=== PATIENT | female | born 1940 | race Caucasian/White ===

== ENCOUNTER 2018-12-12 10:15 | Outpatient (CLI) | payer MEDICARE, OTHER, SELFPAY ==
[2018-12-12 11:37] LABS: Vitamin D 25 Hydroxy 52.7 ng/mL
== END 2018-12-12 10:16 | disposition home or self-care (01) ==
DX: E03.9 Hypothyroidism, unspecified (principal); G63 Polyneuropathy in diseases classified elsewhere; E55.9 Vitamin D deficiency, unspecified
CPT/HCPCS: 36415; 82306; 82607; 84443

== ENCOUNTER 2019-10-15 16:19 | Outpatient (CLI) | payer MEDICARE, OTHER, SELFPAY ==
--- NOTE | ~2019-10-15 | MR_ITS ---
EXAMINATION: MR cervical spine wo con DATE: 10/15/2019 17:23 INDICATION: Cervical radiculopathy. TECHNIQUE: Magnetic resonance imaging (MRI) of the cervical spine was performed without intravenous c ontrast. Sequences included sagittal T2-weighted FSE, sagittal STIR FSE, sagittal T1-weighted FSE, ax ial MERGE, and axial T2-weighted FSE. COMPARISON: Cervical spine MRI 03/14/2018 FINDINGS: There is 2 mm anterolisthesis of C3 on C4 and C4 on C5. There are changes of anterior fusio n procedure at C5-C6 with healed interbody bone graft and anterior plate and screws. There is mildly decreased disc height at C3-C4, C4-C5, C6-C7, and C7-T1. There is myelomalacia in the spinal cord at C5-C6, right worse than left. The following disc levels are specifically discussed: C2-C3: The disc does not extend beyond the endplate margin. There is no uncovertebral joint osteoarth ritis. There is severe right and mild left facet joint osteoarthritis. There is mild right neural for aminal stenosis. There is no central canal stenosis. C3-C4: The disc does not extend beyond the endplate margin. There is mild bilateral uncovertebral randal nt osteoarthritis. There is severe bilateral facet joint osteoarthritis. There is mild bilateral neur al foraminal stenosis. There is no central canal stenosis. C4-C5: The disc is bulging. There is moderate bilateral uncovertebral joint osteoarthritis. There is severe bilateral facet joint osteoarthritis. There is moderate bilateral neural foraminal stenosis. T here is mild central canal stenosis with ventral indentation of the spinal cord. C5-C6: There is mild bilateral uncovertebral joint hypertrophy. There is mild bilateral facet joint o steoarthritis. There is mild bilateral neural foraminal stenosis. There is no central canal stenosis. C6-C7: The disc is bulging. There is moderate right and severe left uncovertebral joint osteoarthriti s. There is severe right and moderate left facet joint osteoarthritis. There is mild bilateral neural foraminal stenosis. There is mild central canal stenosis. C7-T1: The disc is bulging. There is mild bilateral uncovertebral joint osteoarthritis. There is mode rate right and severe left facet joint osteoarthritis. There is mild bilateral neural foraminal steno sis. There is no central canal stenosis. IMPRESSION: 1. Moderate cervical spondylosis, stable from 03/14/2018. 2. Anterior fusion procedure at C5-C6. 3. Stable myelomalacia at C5-C6. Reviewed, dictated and finalized at location A.
== END 2019-10-15 16:20 | disposition home or self-care (01) ==
PROVIDERS: PCP Internal Medicine; Visit Provider Nurse Practitioner Adult Health
DX: G95.89 Other specified diseases of spinal cord (principal); M47.892 Other spondylosis, cervical region; M54.12 Radiculopathy, cervical region; Z98.1 Arthrodesis status
CPT/HCPCS: 72141

== ENCOUNTER 2020-06-22 08:59 | Outpatient (CLI) | payer MEDICARE, OTHER, SELFPAY ==
--- NOTE | ~2020-06-22 | DEXA_ITS ---
Bone Density Report Name: Nadine Burden Age: 79 Sex: Female Ethnicity: White Date of : 1940 Indication: postmenopausal; height loss; cancer; asthma or emphysema; hysterectomy; Referring Provider: LAZARA RODOÑEZ Study: Bone densitometry was performed. Exam Date: June 22, 2020 Accession number: [id number] Bone Density: Region BMD T-score Z-score Classification AP Spine (L2, L3) 1.136 0.7 3.5 Normal Femoral Neck (Left) 0.716 -1.2 1.1 Osteopenia Total Hip (Left) 0.843 -0.8 1.3 Normal Total Hip Bilateral Avg 0.851 -0.8 1.4 Normal Femoral Neck (Right) 0.710 -1.3 1.1 Osteopenia Total Hip (Right) 0.858 -0.7 1.4 Normal World Health Organization criteria for BMD impression classify patients as: Normal (T-score at or above -1.0), Osteopenia (T-score between -1.0 and -2.5), or Osteoporosis (T-score at or below -2.5). 10-year Fracture Risk(1): Major Osteoporotic Fracture 12% Hip Fracture 2.6% Reported Risk Factors: [place] (), Neck BMD=0.710, BMI=29.5 (1) FRAX(R) Version 3.08. Fracture probability calculated for an untreated patient. Fracture probability may be lower if the patient has received treatment. Previous Exams: Region Exam Age BMD T-score BMD Change BMD Change Date g/cm2 vs Baseline vs Previous AP Spine(L2, L3) 06/22/2020 79 1.136 0.7 0.120(11.8%)# -0.012(-1.0%) 04/10/2018 77 1.148 0.8 0.132(12.9%)# -0.030(-2.6%)* 04/08/2016 75 1.178 1.1 0.162(15.9%)# -0.071(-5.7%)# 06/03/2012 71 1.249 1.7 0.233(22.9%)# 0.061(5.1%)# 03/08/2009 68 1.188 1.2 0.172(16.9%)* 0.172(16.9%)* 09/09/2005 65 1.016 -0.4 Total Hip(Left) 06/22/2020 79 0.843 -0.8 -0.174(-17.1%) -0.016(-1.9%) 04/10/2018 77 0.859 -0.7 -0.158(-15.5%) -0.045(-4.9%)* 04/08/2016 75 0.904 -0.3 -0.113(-11.1%) -0.092(-9.2%)# 06/03/2012 71 0.995 0.4 -0.021(-2.1%)# -0.073(-6.8%)# 03/08/2009 68 1.068 1.0 0.051(5.0%)* 0.051(5.0%)* 09/09/2005 65 1.017 0.6 Total Hip(Right) 06/22/2020 79 0.858 -0.7 -0.185(-17.7%) -0.024(-2.8%) 04/10/2018 77 0.883 -0.5 -0.161(-15.4%) -0.089(-9.1%)* 04/08/2016 75 0.971 0.2 -0.072(-6.9%)# -0.050(-4.9%)# 06/03/2012 71 1.021 0.6 -0.022(-2.2%)# -0.033(-3.2%)# 03/08/2009 68 1.054 0.9 0.011(1.0%) 0.011(1.0%) 09/09/2005 65 1.044 0.8 *Denotes significance at 95% confidence level, LSC for AP Spine = 0.022 g/cm2, LSC for Total Hip = 0.027 g/cm2 Clinical Information Provided by Patient:
--- NOTE | ~2020-06-22 | MM_ITS ---
EXAMINATION: MM screening [facility] BI w chirag HISTORY: Screening mammogram, family history of breast cancer in her sister. TECHNIQUE: Craniocaudal and mediolateral oblique 3-D tomosynthesis images were obtained and synthetic 2-D images were generated. CAD analysis was submitted and interpreted. COMPARISON: 04/08/2016, 01/23/2015, 11/02/2013, 10/26/2013 BREAST PARENCHYMAL COMPOSITION: There are scattered areas of fibroglandular density. FINDINGS: There is no evidence of suspicious mass, calcification, or architectural distortion to sugg est malignancy in either breast. There has been no suspicious interval change. IMPRESSION: 1. No mammographic evidence of malignancy. 2. Recommend routine screening mammography in one year. BI-RADS Category 1: Negative Reviewed, dictated and finalized at location A.
== END 2020-06-22 09:00 | disposition home or self-care (01) ==
LOC: ANHIMG 09:10
PROVIDERS: PCP Internal Medicine; Visit Provider Obstetrics & Gynecology Gynecology
DX: Z12.31 Encounter for screening mammogram for malignant neoplasm of breast (principal); Z78.0 Asymptomatic menopausal state; M85.852 Other specified disorders of bone density and structure, left thigh; M85.851 Other specified disorders of bone density and structure, right thigh
CPT/HCPCS: 77063; 77067; 77080

== ENCOUNTER 2020-10-25 07:06 | Outpatient (CLI) | payer MEDICARE, OTHER, SELFPAY ==
--- NOTE | ~2020-10-25 | XR_ITS ---
EXAMINATION: XR chest 2V 10/25/2020 08:26 INDICATION: Dyspnea PROCEDURE: PA and lateral views of the chest COMPARISON: Comparison to multiple prior studies sequentially, with oldest reviewed study dated 10/2015. FINDINGS: The lungs are clear. The cardiomediastinal silhouette is within normal limits. There are no pleural effusions. There is no pneumothorax suspected. There are scattered calcified granulomas. There is atherosclerosis of the aorta. There are cholecystectomy clips. IMPRESSION: 1: NO ACUTE CARDIOPULMONARY DISEASE. Reviewed, dictated and finalized at location A.
--- NOTE | ~2020-10-25 | XR_ITS ---
EXAMINATION: XR hip RT 2V w AP pelvis INDICATION: Right hip pain TECHNIQUE: AP view the pelvis and two views of the right hip are obtained. COMPARISON: 03/14/2018 FINDINGS: Bone alignment is normal. There is mild osteoarthritis of the hips. No fracture is identifi ed. There are phleboliths of the pelvis. IMPRESSION: 1. Mild osteoarthritis of the hips. Reviewed, dictated and finalized at location A.
--- NOTE | ~2020-10-25 | XR_ITS ---
EXAMINATION:XR cervical spine min 6V DATE: 10/25/2020 08:27 INDICATION: Neck pain TECHNIQUE: AP, lateral, bilateral oblique, lateral swimmers and odontoid views of the cervical spine are provided. COMPARISON: MRI, 10/15/2019 FINDINGS: There are 2 mm of unchanged anterolisthesis of C4 on C5. The odontoid is intact. No fractur e is identified. There are changes of anterior fusion procedure at C5-C6 with interbody bone graft an d anterior plate and screws. There is severe loss of intervertebral disc space height at C6-7. The ve rtebral body heights are maintained. There is severe multilevel facet and uncovertebral joint osteoar thritis. IMPRESSION: 1. Moderate cervical spondylosis without acute findings or significant interval change. Reviewed, dictated and finalized at location A.
[2020-10-25 07:46] LABS: Basophils Percent Auto 0.4 % (0.2-1.2); Eosinophils Absolute Auto 0.1 K/mm3 (0-0.3); Eosinophils Percent Auto 1.2 % (0-4.4); Hematocrit 43.3 % (37.0-47.0); Hemoglobin 13.7 g/dL (12.0-15.0); Immature Granulocyte Absolute 0.03 K/mm3 (0.00-0.031); Immature Granulocyte Percent A 0.3 % (0-0.5); Lymphocytes Absolute Auto 1.09 K/mm3 (0.9-3.2); Mean Corpuscular HGB Conc 31.6 g/dl (32-36); Mean Corpuscular Hemoglobin 30.5 pg (26-34); Mean Corpuscular Volume 96.4 fl (80-100); Mean Platelet Volume 12.2 fl (7.4-10.4); Monocytes Absolute Auto 0.9 K/mm3 (0.1-0.6); Neutrophils Absolute Auto 6.9 K/mm3 (1.3-6.7); Neutrophils Percent Auto 76.1 % (45.5-73.1); Platelet Count Result 150 k/mm3 (150-375); Red Blood Count 4.49 M/mm3 (4.2-5.4); Red Cell Distribution Width 14.4 % (11.5-14.5); White Blood Count 9.1 K/mm3 (4.5-10.0)
[2020-10-25 08:03] LABS: Anion Gap 8 mmol/L (8-16); Blood Urea Nitrogen 29 mg/dL (7-17); Calcium 9.3 mg/dL (8.4-10.2); Carbon Dioxide 26 mmol/L (22-30); Chloride 110 mmol/L (98-107); Estimated Glomerular Filt Rate 53; Glucose 91 mg/dL (65-110); Potassium 4.1 mmol/L (3.4-5.0); Sodium 144 mmol/L (137-145)
[2020-10-25 08:20] LABS: Add Urine Microscopic? YES; Appearance Urine Clear (Clear); Bilirubin Urine Negative (Negative); Blood Urine Negative (Negative); Color Urine Yellow (Yellow); Glucose Urine UA Negative (Negative); Ketones Urine Negative (Negative); Leukocyte Esterase Ur Negative LEU/UL (Negative); Mucus Urine Rare /lpf; Nitrate Urine Negative (Negative); Protein Urine Negative (Negative); Specific Grav Ur 1.024 (1.001-1.035); Squamous Epithelial Cell Urine Occasional /hpf (Few); Urobilinogen Urine Negative mg/dL (<2.0); WBC Urine 0-3 /hpf
[2020-10-25 08:52] LABS: Hemoglobin A1C 5.6 % (<5.7)
[2020-10-25 08:59] LABS: Vitamin D 25 Hydroxy 39.7 ng/mL
[2020-10-25 17:20] LABS: Folic Acid 17.6 ng/mL (2.76->20)
[2020-10-28 06:32] LABS: C-Peptide 2.61 ng/mL (0.80-3.85)
[2020-10-31 04:56] LABS: Insulin Level Total 8.4 uIU/mL (<=19.6)
== END 2020-10-25 07:07 | disposition home or self-care (01) ==
PROVIDERS: PCP Internal Medicine; Visit Provider Internal Medicine
DX: E88.81 Metabolic syndrome and other insulin resistance (principal); Z79.899 Other long term (current) drug therapy; I10 Essential (primary) hypertension; E03.9 Hypothyroidism, unspecified; E53.8 Deficiency of other specified B group vitamins; E55.9 Vitamin D deficiency, unspecified; M47.812 Spondylosis without myelopathy or radiculopathy, cervical region; C69.91 Malignant neoplasm of unspecified site of right eye; M47.892 Other spondylosis, cervical region; M16.11 Unilateral primary osteoarthritis, right hip
CPT/HCPCS: 36415; 71046; 72052; 73502; 80048; 81001; 82306; 82607; 82746; 83036; 83525; 84443; 84681; 85025

== ENCOUNTER 2020-11-03 07:40 | Outpatient (CLI) | payer MEDICARE, OTHER, SELFPAY ==
[2020-11-03 08:58] LABS: Alanine Aminotransferase 22 U/L (4-35); Albumin Level 4.2 g/dL (3.5-5.1); Alkaline Phosphatase 74 U/L (38-126); Aspartate Amino Transferase 32 U/L (14-36); Bilirubin,Total 0.5 mg/dL (0.2-1.3); Cholesterol 124 mg/dL (0-200); HDL Direct 44 mg/dL; Triglycerides 204 mg/dL (<150)
[2020-11-03 09:09] LABS: LDL Cholesterol Direct 46 mg/dL
[2020-11-03 11:39] LABS: Free T4 Free Thyroxine 1.29 ng/mL (0.78-2.19)
== END 2020-11-03 07:41 | disposition home or self-care (01) ==
PROVIDERS: PCP Internal Medicine; Visit Provider Internal Medicine
DX: E03.9 Hypothyroidism, unspecified (principal); E78.2 Mixed hyperlipidemia
CPT/HCPCS: 36415; 80061; 80076; 84439

== ENCOUNTER 2020-12-04 10:00 | Outpatient (RCR) | payer MEDICARE, OTHER, SELFPAY ==
--- NOTE | 2020-11-13 11:31 | PTOPEVAL ---
PHYSICAL THERAPY EVALUATION AND PLAN OF CARE 11-13-20 Thank you for referring Nadine Burden to [facility].? She is scheduled to be seen for therapy? 2 x/week for 3 weeks. Please review, sign, date and return this plan of care MARCELO. I agree with and certify that the following plan of care is medically necessary. Referring Physician Date Attending Provider: Femi Blas MD PT Outpatient Evaluation Start: 11/13/20 10:36 Document 11/13/20 10:35 CINDY (Rec: 11/13/20 11:31 CINDY [id number]) Outpatient Past Medical History Past Medical History Source of Past Medical History Patient Neurological History Hx Neurological Disorders No Significant History Cardiovascular History Hx Hypercholesterolemia Yes Hx Hypertension Yes Hx Other Cardiac Disorders Yes: L bunch branch block, cardiology following Respiratory History Hx Asthma Yes: meds Gastrointestinal History Hx Cholecystectomy Yes Genitourinary History Hx Other Genitourinary Disorders Yes: new referral to urology due to blood in urine Musculoskeletal History Hx Orthopedic Surgery Yes: L TKR-years ago, have some pain; neck surgery-cont pain Endocrine History Hx Diabetes Yes: insulin resistant, monitoring Hx Hypothyroidism Yes Other History Hx Other Medical Conditions Yes: insomnia Evaluation Information Problem Diagnosis L hip pain Onset September 2020 Subjective Information gradual increase in L hip pain Query Text:As Reported By Patient/ , no trauma or injury to hip; Family decreased activity level for past few months; Diagnostic Tests X-Rays For This Problem Yes: arthritis in L hip Previous Treatments Previous Treatments For This Problem no previous PT for hip Prior Level of Function Activity Level (Last 3 Months) Occupation retired Activity of Daily Living Ability Independent Indoor/Home Mobility Independent Community Mobility Independent Stairs Ability Independent Functional Cognition (Planning, Shopping Independent , Taking Medications) Cooking Yes Cleaning Yes Laundry Yes Shopping Yes Driving Yes Home Setting Home Type House,Single Level Environmental Barriers Stairs, Greater than 4 Mobility Assistive Devices (Used Last 3 None Months) Comments Additional Prior Level of Function is able to perform all home Comments
--- NOTE | 2020-11-23 12:41 | PCPTNOTE ---
Patient called to cancel appointment this date stating she had a fever and a cough.
--- NOTE | 2020-11-27 13:26 | PCPTNOTE ---
Patient called & cancelled scheduled appointment this date, Pt stated per MD due to Dr wanting to see Pt before next therapy session.
--- NOTE | 2020-12-04 10:42 | PTOPEVAL ---
PHYSICAL THERAPY DISCHARGE 12-04-20 Refer to the clinical summary below, for her status today, compared to the initial evaluation. She will be discharged from PT at this time. Thank you for referring Nadine Burden to [facility].? Please review, sign, date and return this Discharge MARCELO. I agree with and certify that the following plan of care is medically necessary. Referring Physician Date Attending Provider: Femi Blas MD Document 12/04/20 10:05 CINDY (Rec: 12/04/20 10:41 CINDY [id number]) Assessment Status Discharge Subjective Information Carol reports: hip is better- Query Text:As Reported By Patient/ stronger and doing exercises Family at home, and using stationary bike at home; ready for d/c from PT. Pain Assessment Timing of Pain Assessment Timing of Pain Assessment Assessment Pain Scale Pain Scale Used Numeric (1 - 10) Self Report Pain Assessment Right Hip(s) Reported Pain Level 0 Pain Description Soreness Pain Frequency Chronic,Intermittent Lowest Pain Intensity 0 Greatest Pain Intensity 2 Other Pain Aggravating Factors doing more- did exercise bike at home, 40 minutes; Pain Score Pain Score 0: Self Report Lower Extremity Muscle Strength Testing General Lower Extremity Strength Gross Lower Extremity Strength functional strength R LE: supine SLR x 20 reps , bridge x 25 reps; side lying hip abduction to 10 ' x 25 reps prone hip extension x 20 reps; single leg standin seconds; Palpation Assessment Palpation Palpation with palpation over R lateral hip, pt reported no pain or tenderness Gait Assessment Gait Assessment Ambulation Assistive Devices None,Cane Cues Needed For Ambulation None Additional Ambulation Comments slight limp on R LE; pt report when walking outdoors on the bike trail, she uses a cane; instruct on correct height of cane and gait pattern, she was using incorrectly; 2 Minute Walk Total Distance Walked (feet) 320 2 Minute Walk Gait Speed Score (feet/ 2.66 second) Number of Breaks Required 0 2 Minute Walk Test Comments no comments after walking, no increase pain in hip 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
== END 2020-12-04 15:23 | disposition home or self-care (01) ==
LOC: ANHPT 10:00
PROVIDERS: PCP Internal Medicine; Visit Provider Internal Medicine
DX: M25.551 Pain in right hip (principal)
CPT/HCPCS: 97110; 97140; 97161

== ENCOUNTER 2021-01-12 01:12 | Day surgery (SDC) | payer MEDICARE, OTHER, SELFPAY ==
[2020-12-26 13:24] VITALS: BMI 27.1
--- NOTE | 2021-01-11 15:19 | PM.HPGS ---
History of Present Illness History of Present Illness Consent: Risks, benefits, and alternatives have been discussed and questions answered. Patient agrees to proceed with procedure. Chief complaint: hx of colon polyps Narrative: Nadine Burden is a 80 year old female referred for colon cancer screening. Her last examination was 6 years ago. She has a history of polyps Review of Systems Review of Systems: All systems reviewed & are unremarkable except as noted in HPI and below PMFSH Past Medical History Medical History Anxiety Asthma Benign essential hypertension BMI 30.0-30.9,adult BMI 31.0-31.9,adult Cellulitis Cervicalgia Diastolic dysfunction DJD (degenerative joint disease) Encounter for Medicare annual wellness exam Encounter to establish care Follow up Hearing loss Hunner's ulcer Hx of colonic polyps Hyperlipidemia Hypothyroidism (acquired) Insomnia Insulin resistance LBBB (left bundle branch block) Melanoma of eye Microscopic hematuria On senior living drug therapy Pedal edema Right hip pain Ulcer of aorta Vision changes Vision changes Wound infection Surgical History Surgical History History of cholecystectomy History of total left knee replacement Hx of cervical discectomy MoBapt Hx of colonoscopy Dr Trujillo- 08/28/10. Hx of hysterectomy Family History Family History Father Family history of Alzheimer's disease, Onset Age: 76 Diabetes mellitus, Onset Age: 76 Sibling Family history of primary malignant neoplasm of liver, Onset Age: 54 Family history of malignant neoplasm of breast Family history of malignant neoplasm of breast in first degree relative Family history of diabetes mellitus in first degree relative Acute myocardial infarction Diabetes mellitus, Onset Age: 72 Patient's sister is in good health Patient's brother is in good health Family history of malignant neoplasm of stomach Family history of malignant neoplasm Mother Family history of emphysema Family history of rheumatoid arthritis, Onset Age: 69 Grandparent Diabetes mellitus, Onset Age: 80 Other Hypertension Social History Social History Smoking status: Former smoker Second hand tobacco smoke exposure: No Smoking end date: 02/10/89 Alcohol intake: current Alcohol use details: Rare , social ETOH Living arrangements: alone Spiritual care concerns: No Meds Home Medications and Allergies Home Medications Medication Instructions Recorded Confirmed Type albuterol sulfate 90 mcg/actuation 1 puff INHALATION Q4H PRN 10/19/20 01/02/21 History aerosol inhaler carvedilol 12.5 mg tablet 12.5 mg PO Q12H #180 tablet 10/19/20 01/02/21 Rx diclofenac sodium 1 % topical gel 2 g TOPICAL QID 10/19/20 01/02/21 History epinephrine 0.3 mg/0.3 mL 0.3 mg IM ONCE 10/19/20 01/02/21 History injection, auto-injector felodipine 2.5 mg tablet,extended 2.5 mg PO DAILY tablet 10/19/20 01/02/21 History release 24 hr fluticasone propionate 50 2 spray INTRANASAL DAILY 10/19/20 01/02/21 History mcg/actuation nasal spray,suspension ipratropium 20 mcg-albuterol 100 1 puff INHALATION Q4H 10/19/20 01/02/21 History mcg/actuation mist for inhalation losartan 100 mg tablet 100 mg PO DAILY 10/19/20 01/02/21 History meloxicam 15 mg tablet 15 mg PO DAILY 10/19/20 01/02/21 History mepolizumab 100 mg subcutaneous 100 mg SUBCUT [id number] 10/19/20 01/02/21 History solution montelukast 10 mg tablet 10 mg PO DAILY 10/19/20 01/02/21 History vit C-vit [id number] ox-lutein 1 cap PO DAILY 10/19/20 01/02/21 History 226 mg-200 unit-5 mg-0.8 mg capsule guaifenesin 600 mg tablet, 600 mg PO Q12H PRN 10/31/20 01/02/21 History extended release 12 hr levothyroxine
[2021-01-12 06:27] VITALS: BMI 26.5
[2021-01-12] MEDS: LACTATED RINGERS 1,000 ML 150 ML IV CONT (06:31)
--- NOTE | 2021-01-12 06:49 | WPDANESEPPF ---
Anes - Initial Pre Proc Eval Procedure: Operation Date: 01/12/21 07:30 Proposed Procedures p Colonoscopy - Syed Trujillo MD Date/Time: 01/12/21 06:49 Surgeon: Syed Trujillo MD Pre Op Diagnosis: hx of colon polyps Patient Data Age: 80 Gender: F Height: 1.73 m Weight: 79.1 kg Allergies Allergy/AdvReac Type Severity Reaction Status Date / Time guanfacine [From Tenex] Allergy Intermediate Unknown Verified 01/12/21 06:25 propoxyphene Allergy Mild RASH Verified 01/12/21 06:25 adhesive tape Allergy Unknown RASH Verified 01/12/21 06:25 diclofenac Allergy Unknown Gastrointestinal Verified 01/12/21 06:25 Upset latex Allergy Unknown Rash Verified 01/12/21 06:25 ondansetron Allergy Unknown Unknown Verified 01/12/21 06:25 Penicillins Allergy Unknown Rash Verified 01/12/21 06:25 Sulfa (Sulfonamide Allergy Unknown Unknown Verified 01/12/21 06:25 Antibiotics) tramadol Allergy Unknown Gastrointestinal Verified 01/12/21 06:25 Upset verapamil Allergy Unknown Unknown Verified 01/12/21 06:25 citalopram [From Celexa] AdvReac Intermediate Unknown Verified 01/12/21 06:25 gabapentin AdvReac Intermediate Unknown Verified 01/12/21 06:25 TRAMADOL HCL Allergy Mild RASH Uncoded 01/12/21 06:25 Home Medications Medication Instructions Recorded Confirmed Type albuterol sulfate 90 mcg/actuation 1 puff INHALATION Q4H PRN 10/19/20 01/02/21 History aerosol inhaler carvedilol 12.5 mg tablet 12.5 mg PO Q12H #180 tablet 10/19/20 01/02/21 Rx diclofenac sodium 1 % topical gel 2 g TOPICAL QID 10/19/20 01/02/21 History epinephrine 0.3 mg/0.3 mL 0.3 mg IM ONCE 10/19/20 01/02/21 History injection, auto-injector felodipine 2.5 mg tablet,extended 2.5 mg PO DAILY tablet 10/19/20 01/02/21 History release 24 hr fluticasone propionate 50 2 spray INTRANASAL DAILY 10/19/20 01/02/21 History mcg/actuation nasal spray,suspension ipratropium 20 mcg-albuterol 100 1 puff INHALATION Q4H 10/19/20 01/02/21 History mcg/actuation mist for inhalation losartan 100 mg tablet 100 mg PO DAILY 10/19/20 01/02/21 History meloxicam 15 mg tablet 15 mg PO DAILY 10/19/20 01/02/21 History mepolizumab 100 mg subcutaneous 100 mg SUBCUT [id number] 10/19/20 01/02/21 History solution montelukast 10 mg tablet 10 mg PO DAILY 10/19/20 01/02/21 History vit C-vit V-[id number]-[id number] ox-lutein 1 cap PO DAILY 10/19/20 01/02/21 History 226 mg-200 unit-5 mg-0.8 mg capsule guaifenesin 600 mg tablet, 600 mg PO Q12H PRN 10/31/20 01/02/21 History extended release 12 hr levothyroxine 175 mcg tablet 100 mcg PO DAILY 10/31/20 01/02/21 History cetirizine 10 mg tablet 10 mg PO DAILY #90 tablet 11/27/20 01/02/21 Rx cholestyramine-aspartame 4 gram See Rx Instructions PO DAILY #420 g 11/27/20 01/02/21 Rx oral powder furosemide 40 mg tablet 40 mg PO QAM #90 tablet 11/27/20 01/02/21 Rx alprazolam 0.5 mg tablet 0.5 mg PO TID PRN #60 tablet 11/29/20 01/02/21 Rx escitalopram oxalate 10 mg tablet 10 mg PO DAILY #90 tablet 11/29/20 01/02/21 Rx loperamide 2 mg tablet 2 mg PO DAILY PRN #30 tablet 12/27/20 01/02/21 Rx potassium chloride 10 mEq 10 meq PO DAILY #90 cap 12/27/20 01/02/21 Rx capsule,extended release rosuvastatin 5 mg tablet 5 mg PO DAILY #90 tablet 12/27/20 01/02/21 Rx fluticasone propionate 230 2 puff INHALATION BID 01/01/21 01/02/21 History mcg-salmeterol 21 mcg/actuation HFA inhaler Patient hx anesthesia problems: none Family hx anesthesia problems: none Results Review: All pre-operative results and documents have been reviewed as part of the pre-operative evaluation. [facility] Past Medical History Medical History Anxiety Asthma Benign essential hypertension BMI 30.0-30.9,adult BMI 31.0-31.9,adult Cellulitis Cervicalgia Diastolic dysfunction DJD (degenerative joint disease) Encounter for Medicare annual wellness exam Encounter to establish care Follow up Hearing loss Hunner's ulcer Hx of
[2021-01-12 07:05] VITALS: BP 116/62; PULSE 69; RESP 18; TEMP 36.1; O2SAT 96
[2021-01-12 07:43] VITALS: BP 93/52; PULSE 60; RESP 18; O2SAT 97
[2021-01-12 07:53] VITALS: BP 122/70; PULSE 64; RESP 18; O2SAT 97
[2021-01-12 08:00] VITALS: BP 130/67; PULSE 63; RESP 18; O2SAT 96
== END 2021-01-12 08:19 | disposition home or self-care (01) ==
PROVIDERS: PCP Internal Medicine; Visit Provider Internal Medicine Gastroenterology
PROC: 0DJD8ZZ Inspection of Lower Intestinal Tract, Via Natural or Artificial Opening Endoscopic (ICD-10-PCS; CPT 45378; principal; 2021-01-12 07:30)
DX: Z12.11 Encounter for screening for malignant neoplasm of colon (principal); D12.4 Benign neoplasm of descending colon; K64.8 Other hemorrhoids; K57.30 Diverticulosis of large intestine without perforation or abscess without bleeding; J45.909 Unspecified asthma, uncomplicated; I11.9 Hypertensive heart disease without heart failure; E78.5 Hyperlipidemia, unspecified; E03.9 Hypothyroidism, unspecified; F41.9 Anxiety disorder, unspecified; Z79.51 Long term (current) use of inhaled steroids; Z87.891 Personal history of nicotine dependence
CPT/HCPCS: 45385; 88305; J2704; J7120

== ENCOUNTER → 2021-03-28 12:10 | Outpatient (CLI) | payer MEDICARE, OTHER, SELFPAY ==
--- NOTE | ~2021-03-28 | XR_ITS ---
XR_CERV2-3V_CR DATE: 03/28/2021 12:23 INDICATION: Neck pain TECHNIQUE: Neutral, flexion and extension lateral views COMPARISON: None FINDINGS: No fracture is detected. No prevertebral soft tissue swelling. There is 2.5 mm anterolisthesis at C2-3 and C3-4 and 1.5 mm anterolisthesis at C6-C7 in flexion, redu carmen to 1.5 mm at C2-3 and 1 mm at C3-4 and no anterolisthesis at C6-C7 in extension. Status post anterior cervical spine surgical fusion at C5-6. There is severe degenerative disc disease at C6-7. IMPRESSION: Status post anterior surgical fusion at C5-6 Severe degenerative disc disease at C6-7 Anterolisthesis at C2-3, C3-4 and C6-7, improved in extension Reviewed, dictated and finalized at Location A. Reviewed, dictated and finalized at location B. 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
== END ==
PROVIDERS: PCP Internal Medicine; Visit Provider Internal Medicine
DX: Z98.1 Arthrodesis status (principal); M47.812 Spondylosis without myelopathy or radiculopathy, cervical region
CPT/HCPCS: 72040

== ENCOUNTER 2021-04-03 14:25 | Outpatient (CLI) | payer MEDICARE, OTHER, SELFPAY ==
--- NOTE | ~2021-04-03 | XR_ITS ---
XR chest 2V 04/03/2021 15:00 Indication: Cough Procedure: 2 view chest Comparison: Comparison to multiple prior studies sequentially, with oldest reviewed study dated 05/2016. Findings: Heart size is normal. No focal air space disease, pulmonary edema, pleural effusion or susp ected pneumothorax. There are scattered calcified granuloma. No acute osseous abnormality. Impression: 1: No acute cardiopulmonary disease. Reviewed, dictated and finalized at location B. CAL INFORMATION SPECIALIST Impression: 1: No acute cardiopulmonary disease.
[2021-04-03 15:08] LABS: Alanine Aminotransferase 21 U/L (4-35); Albumin Level 4.3 g/dL (3.5-5.1); Alkaline Phosphatase 81 U/L (38-126); Anion Gap 9 mmol/L (8-16); Aspartate Amino Transferase 30 U/L (14-36); Bilirubin,Total 0.5 mg/dL (0.2-1.3); Blood Urea Nitrogen 27 mg/dL (7-17); Calcium 9.6 mg/dL (8.4-10.2); Carbon Dioxide 28 mmol/L (22-30); Chloride 106 mmol/L (98-107); Estimated Glomerular Filt Rate 60; Glucose 94 mg/dL (65-110); Potassium 3.9 mmol/L (3.4-5.0); Sodium 143 mmol/L (137-145)
[2021-04-03 20:48] LABS: Folic Acid 18.5 ng/mL (2.76->20)
[2021-04-06 11:58] LABS: Vitamin B6 11.5 ng/mL (2.1-21.7)
[2021-04-07 13:04] LABS: Vitamin B1 20 nmol/L (8-30)
[2021-04-10 11:19] LABS: Vitamin B2 12.1 nmol/L (6.2-39.0)
== END 2021-04-03 14:26 | disposition home or self-care (01) ==
LOC: ANHLAB 14:30
PROVIDERS: PCP Internal Medicine; Visit Provider Internal Medicine
DX: R05.9 Cough, unspecified (principal); Z86.16 Personal history of COVID-19; R41.3 Other amnesia; R41.89 Other symptoms and signs involving cognitive functions and awareness; I10 Essential (primary) hypertension
CPT/HCPCS: 36415; 71046; 80053; 82607; 82746; 84207; 84252; 84425

== ENCOUNTER 2021-04-06 01:16 | Day surgery (SDC) | payer MEDICARE, OTHER, SELFPAY ==
--- NOTE | 2021-03-27 09:48 | PC.NURSE ---
Report to the Outpatient Waiting Room, entrance under the green pavilion located off [facility], at time _0745_ on date _04/06/21_. OR Time: _0945_. - You will be asked a series of questions to screen for COVID 19 for your protection. - A mask is required within the hospital. - One visitor allowed at this time. Preoperative COVID Testing Requirements: NONE Patients may have clear liquids (water, carbonated beverages, clear teas, apple juice) until 3 hours prior to surgery (0645 AM) with a maximum of 20 ounces. - No food from midnight until time of surgery Take the following medications with a SIP of water the morning of surgery: _ALPRAZOLAM, CARVEDILOL, ESCITALOPRAM, FELODIPINE, LEVOTHYROXINE_ Medications to discontinue per ROSADO - MELOXICAM 7 DAYS PRIOR TO SURGERY, LAST DOSE TO BE TAKEN ON 03/29/21, Medications to discontinue per ANESTHESIA - ALL VITAMINS AND SUPPLEMENTS 3 DAYS PRIOR TO SURGERY, LAST DOSE TO BE TAKEN ON 04/02/21 Please no make-up, nail vietnamese, hairspray, perfume, deodorant, or body powder the day of surgery. No jewelry (including any body piercings) or valuables the day of surgery, leave them at home. Please take a shower or bath the night before, or the morning of, surgery with an antibacterial soap. Wear comfortable, loose fitting clothing. - Jewelry must be removed prior to entering the operating room. Rings and piercings that are not removed may be cut off. - The hospital will not accept responsibility for valuables. - Please leave all valuables, including medications, at home the day of surgery. If you are going home after surgery, a licensed lyft driver must drive you home. - NO public transportation without another adult. - We recommend that an adult stay with you for 24 hours following discharge. - We also recommend that you do not drive, make important decision, drink alcoholic beverages, or take any drugs that were not prescribed by your health care provider for at least 24 hours after your discharge time. Follow any additional instructions given to you from your surgeon. Telephone instructions given to PT and asked if any additional questions and then verbalized understanding. Patient advised to call surgeon office or pre surgery nurse liaison [phone] if any additional questions.
--- NOTE | 2021-04-01 19:22 | PM.IMHP ---
H&P: HPI History of Present Illness Date/Time: 04/01/21 19:22 80yo with a HUnners Ulcer Chief Complaint: Hunner ulcer Review of Systems Review of Systems: All systems reviewed & are unremarkable except as noted in HPI and below PMFSH Past Medical History Medical History Anxiety Asthma Benign essential hypertension BMI 30.0-30.9,adult BMI 31.0-31.9,adult Cellulitis Cervicalgia Diastolic dysfunction DJD (degenerative joint disease) Encounter for Medicare annual wellness exam Encounter to establish care Follow up Hearing loss Hunner's ulcer Hx of colonic polyps Hyperlipidemia Hypothyroidism (acquired) Insomnia Insulin resistance LBBB (left bundle branch block) Melanoma of eye Microscopic hematuria On senior living drug therapy Pedal edema Right hip pain Ulcer of aorta Vision changes Vision changes Wound infection Surgical History Surgical History History of cholecystectomy History of total left knee replacement Hx of cervical discectomy MoBapt Hx of colonoscopy Dr Trujillo- 08/28/10. Hx of hysterectomy Family History Family History Father Family history of Alzheimer's disease, Onset Age: 76 Diabetes mellitus, Onset Age: 76 Sibling Family history of primary malignant neoplasm of liver, Onset Age: 54 Family history of malignant neoplasm of breast Family history of malignant neoplasm of breast in first degree relative Family history of diabetes mellitus in first degree relative Acute myocardial infarction Diabetes mellitus, Onset Age: 72 Patient's sister is in good health Patient's brother is in good health Family history of malignant neoplasm of stomach Family history of malignant neoplasm Mother Family history of emphysema Family history of rheumatoid arthritis, Onset Age: 69 Grandparent Diabetes mellitus, Onset Age: 80 Other Hypertension Social History Social History Smoking status: Former smoker Tobacco type: cigarettes Second hand tobacco smoke exposure: No Smoking end date: 02/10/89 Additional smoking assessment comments: PT STATES QUITING Alcohol intake: current Alcohol use details: Rare , social ETOH Spiritual care concerns: No Meds Home Medications and Allergies Home Medications Medication Instructions Recorded Confirmed Type albuterol sulfate 90 mcg/actuation 1 puff INHALATION Q4H PRN 10/19/20 03/27/21 History aerosol inhaler diclofenac sodium 1 % topical gel 2 g TOPICAL QID 10/19/20 03/27/21 History epinephrine 0.3 mg/0.3 mL 0.3 mg IM ONCE 10/19/20 03/27/21 History injection, auto-injector felodipine 2.5 mg tablet,extended 2.5 mg PO DAILY tablet 10/19/20 03/27/21 History release 24 hr ipratropium 20 mcg-albuterol 100 1 puff INHALATION Q4H 10/19/20 03/27/21 History mcg/actuation mist for inhalation losartan 100 mg tablet 100 mg PO DAILY 10/19/20 03/27/21 History mepolizumab 100 mg subcutaneous 100 mg SUBCUT [id number] 10/19/20 03/27/21 History solution vit C-vit S-grlhdk-buji ox-lutein 1 cap PO DAILY 10/19/20 03/27/21 History 226 mg-200 unit-5 mg-0.8 mg capsule guaifenesin 600 mg tablet, 600 mg PO Q12H PRN 10/31/20 03/27/21 History extended release 12 hr cetirizine 10 mg tablet 10 mg PO DAILY #90 tablet 11/27/20 03/27/21 Rx cholestyramine-aspartame 4 gram See Rx Instructions PO DAILY #420 g 11/27/20 03/27/21 Rx oral powder furosemide 40 mg tablet 40 mg PO QAM #90 tablet 11/27/20 03/27/21 Rx alprazolam 0.5 mg tablet 0.5 mg PO TID PRN #60 tablet 11/29/20 03/27/21 Rx escitalopram oxalate 10 mg tablet 10 mg PO DAILY #90 tablet 11/29/20 03/27/21 Rx loperamide 2 mg tablet 2 mg PO DAILY PRN #30 tablet 12/27/20 03/27/21 Rx carvedilol 12.5 mg tablet 12.5 mg PO Q12H #180 tabl
--- NOTE | 2021-04-06 07:08 | WPDHPUPDATE1 ---
History and Physical Update Update Date/Time: 04/06/21 07:08 History and Physical has been reviewed, including an updated exam of the patient. There are NO changes in the patient's condition. Risks, benefits, and alternatives have been discussed and questions answered. Patient agrees to proceed with procedure.
--- NOTE | 2021-04-06 09:27 | WPDANESEPPF ---
Anes - Initial Pre Proc Eval Procedure: Operation Date: 04/06/21 10:30 Proposed Procedures p Cystoscopy, Bladder Biopsy, Steroid Injection - Albaro Ames MD Date/Time: 04/06/21 09:27 Surgeon: Albaro Ames MD Pre Op Diagnosis: hypervascular lesion of urinary bladder Patient Data Age: 80 Gender: F Height: 1.73 m Weight: Allergies Allergy/AdvReac Type Severity Reaction Status Date / Time guanfacine [From Tenex] Allergy Intermediate Unknown-PT Verified 04/06/21 09:01 UNABLE TO RECALL propoxyphene Allergy Mild RASH Verified 04/06/21 09:01 adhesive tape Allergy Unknown RASH Verified 04/06/21 09:01 latex Allergy Unknown Rash Verified 04/06/21 09:01 ondansetron Allergy Unknown Unknown-PT Verified 04/06/21 09:01 UNABLE TO RECALL Penicillins Allergy Unknown Rash Verified 04/06/21 09:01 Sulfa (Sulfonamide Allergy Unknown Unknown-PT Verified 04/06/21 09:01 Antibiotics) UNALBE TO RECALL verapamil Allergy Unknown Unknown-PT Verified 04/06/21 09:01 UNALBE TO RECALL citalopram [From Celexa] AdvReac Intermediate Unknown-PT Verified 04/06/21 09:01 UNALBE TO RECALL gabapentin AdvReac Intermediate Unknown-PT Verified 04/06/21 09:01 UNABLE TO RECALL diclofenac AdvReac Unknown Gastrointestinal Verified 04/06/21 09:01 Upset tramadol AdvReac Unknown Gastrointestinal Verified 04/06/21 09:01 Upset TRAMADOL HCL Allergy Mild RASH Uncoded 04/06/21 09:01 Home Medications Medication Instructions Recorded Confirmed Type albuterol sulfate 90 mcg/actuation 1 puff INHALATION Q4H PRN 10/19/20 04/04/21 History aerosol inhaler diclofenac sodium 1 % topical gel 2 g TOPICAL QID 10/19/20 04/04/21 History epinephrine 0.3 mg/0.3 mL 0.3 mg IM ONCE 10/19/20 04/04/21 History injection, auto-injector felodipine 2.5 mg tablet,extended 2.5 mg PO DAILY tablet 10/19/20 04/04/21 History release 24 hr ipratropium 20 mcg-albuterol 100 1 puff INHALATION Q4H 10/19/20 04/04/21 History mcg/actuation mist for inhalation losartan 100 mg tablet 100 mg PO DAILY 10/19/20 04/04/21 History mepolizumab 100 mg subcutaneous 100 mg SUBCUT [id number] 10/19/20 04/04/21 History solution vit C-vit S-ihagmj-excj ox-lutein 1 cap PO DAILY 10/19/20 04/04/21 History 226 mg-200 unit-5 mg-0.8 mg capsule guaifenesin 600 mg tablet, 600 mg PO Q12H PRN 10/31/20 04/04/21 History extended release 12 hr cetirizine 10 mg tablet 10 mg PO DAILY #90 tablet 11/27/20 04/04/21 Rx cholestyramine-aspartame 4 gram See Rx Instructions PO DAILY #420 g 11/27/20 04/04/21 Rx oral powder furosemide 40 mg tablet 40 mg PO QAM #90 tablet 11/27/20 04/04/21 Rx alprazolam 0.5 mg tablet 0.5 mg PO TID PRN #60 tablet 11/29/20 04/04/21 Rx escitalopram oxalate 10 mg tablet 10 mg PO DAILY #90 tablet 11/29/20 04/04/21 Rx loperamide 2 mg tablet 2 mg PO DAILY PRN #30 tablet 12/27/20 04/04/21 Rx carvedilol 12.5 mg tablet 12.5 mg PO Q12H #180 tablet 02/13/21 04/04/21 Rx fluticasone propionate 230 2 puff INHALATION BID #3 ea 02/13/21 04/04/21 Rx mcg-salmeterol 21 mcg/actuation HFA inhaler fluticasone propionate 50 2 spray INTRANASAL DAILY #3 ea 02/13/21 04/04/21 Rx mcg/actuation nasal spray,suspension levothyroxine 175 mcg tablet 100 mcg PO DAILY #90 tablet 02/13/21 04/04/21 Rx meloxicam 15 mg tablet 15 mg PO DAILY #90 tablet 02/13/21 04/04/21 Rx montelukast 10 mg tablet 10 mg PO DAILY #90 tablet 02/13/21 04/04/21 Rx omeprazole 20 mg capsule,delayed 20 mg PO DAILY #90 cap 02/13/21 04/04/21 Rx release potassium chloride 10 mEq 10 meq PO DAILY #90 cap 02/13/21 04/04/21 Rx capsule,extended release rosuvastatin 5 mg tablet 5 mg PO DAILY #90 tablet 02/13/21 04/04/21 Rx ciprofloxacin HCl 250 mg tablet 250 mg PO Q12H #15 tablet 03/30/21 04/04/21 Rx Patient hx anesthesia problems: none Family hx anesthesia problems: none Results Review: All pre-operative results and documents have been reviewed as part of
[2021-04-06 09:29] VITALS: BMI 25.9
[2021-04-06 09:46] LABS: Glucose Point of Care 103 mg/dl (65-105)
[2021-04-06 09:48] VITALS: BP 121/81; PULSE 58; RESP 20; TEMP 36.3; O2SAT 98
[2021-04-06] MEDS: LACTATED RINGERS 1,000 ML 30 ML IV CONT (09:49)
[2021-04-06] MEDS: ceFAZolin 2 GM/D5W 50 ML 2 GM/50 ML BAG IVPB (10:20)
[2021-04-06 10:56] VITALS: BP 102/64; PULSE 63; RESP 14; O2SAT 95
--- NOTE | 2021-04-06 11:07 | W.PM.PROC2 ---
Procedure Note - Detailed Date of Procedure 04/06/21 Pre-op Diagnosis hypervascular lesion of urinary bladder Post-op Diagnosis same Procedure Performed Cystoscopy Surgeon Albaro Ames MD Anesthesia MAC Indications This is a with a visible lesion seen on the dome of her bladder on office cystoscopy. She is here today for a cystoscopy with bladder biopsy and steroid injection. Empirically I felt it was a Hunner's ulcer Findings Ulceration and bladder abnormality has resolved Description of Procedure She has correctly identified. Informed consent obtained. She from the operating room. She was given MAC anesthesia. She was placed in dorsal thigh position. She was prepped and draped sterile fashion. Time-out performed. Examination fill a rectocele and atrophic vaginitis. Cystoscopy revealed a normal appearing bladder. I examined the bladder with the 30 degree and the 70 degree lens. There is no ulceration seen. Ureteral orifices were normal. There is no tumors, there is no stones, she had mild trabeculations. Her bladder was drained. She was awakened and transferred to PACU in stable condition. Estimated Blood Loss 0 Drains No Packing No Pathology none sent Complications No immediate complications
[2021-04-06 11:17] LABS: Glucose Point of Care 86 mg/dl (65-105)
[2021-04-06 11:25] VITALS: BP 133/71; PULSE 63
[2021-04-06 11:50] VITALS: BP 138/79; PULSE 61
--- NOTE | 2021-04-06 15:26 | SUR.PHASEII ---
RN called Kwaku's office to have a new work release form faxed to patient's work.
== END 2021-04-06 11:56 | disposition home or self-care (01) ==
PROVIDERS: PCP Internal Medicine; Visit Provider Urology
PROC: 0TBB8ZX Excision of Bladder, Via Natural or Artificial Opening Endoscopic, Diagnostic (ICD-10-PCS; CPT 52204; principal; 2021-04-06 10:30)
DX: N32.89 Other specified disorders of bladder (principal); J45.909 Unspecified asthma, uncomplicated; I11.9 Hypertensive heart disease without heart failure; E78.5 Hyperlipidemia, unspecified; E03.9 Hypothyroidism, unspecified; F41.9 Anxiety disorder, unspecified; I44.7 Left bundle-branch block, unspecified; Z79.51 Long term (current) use of inhaled steroids; Z87.891 Personal history of nicotine dependence
CPT/HCPCS: 52000; 82948; J0690; J2704; J3301; J7120

== ENCOUNTER 2021-04-11 09:35 | Outpatient (CLI) | payer MEDICARE, OTHER, SELFPAY ==
--- NOTE | ~2021-04-11 | CT_ITS ---
EXAMINATION: CT brain wo/w con DATE: 04/11/2021 10:13 INDICATION: Amnesia. Cognitive decline. Occasional headaches. TECHNIQUE: Computed tomography (CT) of the head was performed without and subsequently with 100 CC Om nipaque 350 intravenous contrast. The mA was adjusted according to patient size. Iterative reconstruc tion technique was employed. Exam dose: 1210.67 mGy-cm total exam DLP. COMPARISON: 04/15/2009 CT brain FINDINGS: Chronic lacunar infarct is noted in the region of the anterior limb of the right internal c apsule. Chronic bilateral basal ganglia lacunar infarcts. There is mild cerebral atherosclerotic calcification. There is nonspecific diminished attenuation of the cerebral white matter, likely due to chronic small vessel ischemic changes. There is moderate cer ebral and cerebellar volume loss. No intracranial mass lesion or hemorrhage or recent cerebrovascular accident is evident. No midline s hift or mass effect. Normal ventricular size. No subdural or epidural hematoma. No orbital mass lesion. No fracture or bone destruction of the cranial vault. Included paranasal sinuses and the mastoid air cells are normally aerated. IMPRESSION: Chronic lacunar infarcts in the region of the anterior limb of the right internal capsul e and bilateral basal ganglia Cerebral atherosclerosis and chronic small vessel ischemic changes of cerebral white matter No acute intracranial finding Reviewed, dictated and finalized at Location [facility]. Reviewed, dictated and finalized at location A. UCTION DIRECTOR IMPRESSION: Chronic lacunar infarcts in the region of the anterior limb of the right internal capsule and bilateral basal ganglia Cerebral atherosclerosis and chronic small vessel ischemic changes of cerebral white matter No acute intracranial finding
== END 2021-04-11 09:36 | disposition home or self-care (01) ==
LOC: ANHIMG 09:41
PROVIDERS: PCP Internal Medicine; Visit Provider Internal Medicine
DX: R41.3 Other amnesia (principal); R41.89 Other symptoms and signs involving cognitive functions and awareness; I67.2 Cerebral atherosclerosis
CPT/HCPCS: 70470; Q9967

== ENCOUNTER 2021-05-21 11:09 | Outpatient (CLI) | payer MEDICARE, OTHER, SELFPAY ==
--- NOTE | ~2021-05-21 | US_ITS ---
EXAMINATION: US carotid duplex BI DATE: 05/21/2021 11:36 INDICATION: Occlusion and stenosis of unspecified carotid artery. TECHNIQUE: Grayscale, color Doppler, and pulsed Doppler images of the cervical carotid arteries were obtained. The degree of vessel stenosis is placed in one of the following categories: normal, <50%, 5 0-69%, >=70% but less than near-occlusion, near-occlusion, or total occlusion. Note that percent sten osis relative to normal distal artery lumen diameter is indirectly measured from velocity measurement s as described by Raheel, et al. Radiology 2003; 229:340-346. COMPARISON: Ultrasound 04/26/2012 FINDINGS: RIGHT: The right common carotid artery (CCA) peak systolic velocity (PSV) is 60 cm/s. The right internal car otid artery (ICA) PSV is 46 cm/s. The right ICA end-diastolic velocity (EDV) is 9 cm/s. The right ICA /CCA PSV ratio is 0.8. Grayscale and color Doppler images yield an estimate of <50% diameter reductio n from plaque in the ICA. There is antegrade flow in the right vertebral artery. LEFT: The left CCA PSV is 40 cm/s. The left ICA PSV is 63 cm/s. The left ICA EDV is 20 cm/s. The left ICA/C CA PSV ratio is 1.6. Grayscale and color Doppler images yield an estimate of <50% diameter reduction from plaque in the ICA. There is antegrade flow in the left vertebral artery. IMPRESSION: 1. <50% stenosis in the right internal carotid artery. 2. <50% stenosis in the left internal carotid artery. Reviewed, dictated and finalized at location A.
== END 2021-05-21 11:10 | disposition home or self-care (01) ==
LOC: ANHIMG 11:11
PROVIDERS: PCP Internal Medicine; Visit Provider Internal Medicine
DX: I65.23 Occlusion and stenosis of bilateral carotid arteries (principal)
CPT/HCPCS: 93880

== ENCOUNTER 2021-06-02 11:50 | Emergency (ER) | payer MEDICARE, OTHER, SELFPAY ==
--- NOTE | ~2021-06-02 | XR_ITS ---
EXAMINATION: XR chest 2V DATE: 06/02/2021 12:32 INDICATION: Cough and congestion TECHNIQUE: PA and lateral views of the chest were obtained. COMPARISON: Chest radiograph dated 04/03/2021 FINDINGS: Small calcified nodule in the right midlung zone and calcified right hilar and mediastinal lymph node s consistent with old granulomatous disease. Unchanged mild linear discoid atelectasis/scarring at th e bilateral lung bases. No new airspace opacities, pulmonary edema, pleural effusion or pneumothorax. The cardiomediastinal silhouette is normal. Cholecystectomy clips in the right upper quadrant. Moder ate thoracic spondylosis. Interbody bone graft and anterior plate-screw fixation for lower cervical a nterior spinal fusion. IMPRESSION: 1. No acute cardiopulmonary disease. Reviewed, dictated and finalized at location A.
[2021-06-02 11:55] VITALS: BP 110/66; PULSE 61; RESP 16; TEMP 36.5; O2SAT 97
[2021-06-02 12:01] VITALS: BP 110/66; PULSE 61; RESP 16; TEMP 36.5; O2SAT 97
--- NOTE | 2021-06-02 12:30 | ED.GENADULT ---
HPI - General Adult General Chief complaint: Upper Respiratory Infection Stated complaint: Sore throat, mucus. Source: patient Mode of arrival: ambulatory Limitations: no limitations History of Present Illness HPI narrative: Patient presents for evaluation of respiratory symptoms and fatigue. She states she was diagnosed with COVID in February of this year. She was experiencing excess sputum in her pharynx and fatigue at that time. Symptoms persisted but improved. Approximately two weeks ago she had recurrence of her symptoms. She wants to ensure she does not have COVID again. She is planning on spending time in total. Wants to ensure that she is not sick. She reports productive cough of clear/yellow sputum. During coughing fits she does experience shortness of breath but denies so otherwise. No fever, chills, nausea, vomiting. She is not taking any medication for symptoms. She does not smoke. No additional complaints or concerns. Related Data Home Medications Medication Instructions Recorded Confirmed diclofenac sodium 1 % topical gel 2 g TOPICAL QID 10/19/20 06/02/21 epinephrine 0.3 mg/0.3 mL 0.3 mg IM ONCE 10/19/20 06/02/21 injection, auto-injector felodipine 2.5 mg tablet,extended 2.5 mg PO DAILY tablet 10/19/20 06/02/21 release 24 hr losartan 100 mg tablet 100 mg PO DAILY 10/19/20 06/02/21 mepolizumab 100 mg subcutaneous 100 mg SUBCUT [id number] 10/19/20 06/02/21 solution vit C-vit A-gvvsah-ihvs ox-lutein 1 cap PO DAILY 10/19/20 06/02/21 226 mg-200 unit-5 mg-0.8 mg capsule aspirin 81 mg tablet,delayed 81 mg PO DAILY 04/16/21 06/02/21 release Allergies Allergy/AdvReac Type Severity Reaction Status Date / Time guanfacine [From Tenex] Allergy Intermediate Unknown-PT Verified 06/02/21 11:57 UNABLE TO RECALL propoxyphene Allergy Mild RASH Verified 06/02/21 11:57 adhesive tape Allergy Unknown RASH Verified 06/02/21 11:57 latex Allergy Unknown Rash Verified 06/02/21 11:57 ondansetron Allergy Unknown Unknown-PT Verified 06/02/21 11:57 UNABLE TO RECALL Penicillins Allergy Unknown Rash Verified 06/02/21 11:57 Sulfa (Sulfonamide Allergy Unknown Unknown-PT Verified 06/02/21 11:57 Antibiotics) UNALBE TO RECALL verapamil Allergy Unknown Unknown-PT Verified 06/02/21 11:57 UNALBE TO RECALL citalopram [From Celexa] AdvReac Intermediate Unknown-PT Verified 06/02/21 11:57 UNALBE TO RECALL gabapentin AdvReac Intermediate Unknown-PT Verified 06/02/21 11:57 UNABLE TO RECALL diclofenac AdvReac Unknown Gastrointestinal Verified 06/02/21 11:57 Upset tramadol AdvReac Unknown Gastrointestinal Verified 06/02/21 11:57 Upset TRAMADOL HCL Allergy Mild RASH Uncoded 06/02/21 11:57 Review of Systems Review of Systems: CONSTITUTIONAL: Reports fatigue. Denies fever, chills, or sweats. EYES: Denies visual changes, redness, or discharge. ENT: Reports excess sputum in posterior pharynx. Denies rhinorrhea, congestion, sore throat, or otalgia. CARDIOVASCULAR: Denies chest pain, palpitations, or edema. RESPIRATORY: Reports productive cough of clear/yellow sputum. Reports intermittent SOB with coughing episodes. GASTROINTESTINAL: Denies abdominal pain, nausea, vomiting, or diarrhea. GENITOURINARY: Denies dysuria or hematuria. SKIN: Denies rash or itching. MUSCULOSKELETAL: Denies back pain, joint pain, or myalgia. NEUROLOGIC: Denies headache, numbness, dizziness, or weakness. PSYCHIATRIC: Denies anxiety or depression. [facility] Past Medical History Medical History Anxiety Asthma Benign essential hypertension BMI 29.0-29.9,adult BMI 30.0-30.9,adult BMI 31.0-31.9,adult Carotid stenosis Cellulitis Cervicalgia Cough Diastolic dysfunction DJD (degenerative joint disease) Encounter for Medicare annual wellness exam Encounter to establish care Follow up Hearing loss Hunner's ulcer Hx of colonic polyps Hype
--- NOTE | 2021-06-02 13:41 | PC.NURSE ---
1250--pt talking to daughter on phone, and reminded her about her recent uti's and wanted her to be checked for that as well while she is here. specimen cup given with instructions, and pt is giving urine specimen at present.
== END 2021-06-02 13:19 | disposition home or self-care (01) ==
PROVIDERS: Emergency Provider Nurse Practitioner; PCP Internal Medicine
DX: R53.83 Other fatigue (principal); Z20.822 Contact with and (suspected) exposure to COVID-19; Z86.16 Personal history of COVID-19; J45.909 Unspecified asthma, uncomplicated; I10 Essential (primary) hypertension; E78.5 Hyperlipidemia, unspecified; E03.9 Hypothyroidism, unspecified; Z96.652 Presence of left artificial knee joint; Z87.891 Personal history of nicotine dependence; Z79.82 Long term (current) use of aspirin
CPT/HCPCS: 71046; 81003; 87081; 87426; 87804; 87880; 99213; C9803; G0463

== ENCOUNTER 2021-07-06 13:32 | Emergency (ER) | payer MEDICARE, OTHER, SELFPAY ==
--- NOTE | ~2021-07-06 | XR_ITS ---
XR chest 2V DATE: 07/06/2021 13:59 INDICATION: Wheezing TECHNIQUE: 2 views, PA and lateral projections COMPARISON: 06/02/2021 PA and lateral chest FINDINGS: There is moderate bilateral hyperinflation. Borderline heart size. Aortic calcification, ec do and unfolding. No hilar or mediastinal enlargement. There is evidence of old pulmonary granulomatous disease. Stable mild discoid atelectasis or scarring at the lung bases. No pulmonary infiltrate or consolidati on, pleural effusion or pulmonary vascular congestion or pneumothorax is detected. Status post lower anterior cervical spine surgical fusion scoliosis and degenerative spurring of the thoracic lumbar spine. Osteopenia. Status post cholecystectomy.. IMPRESSION: No active pulmonary disease or significant change since 06/02/2021 Reviewed, dictated and finalized at location A.
--- NOTE | 2021-07-06 13:36 | ED.URI ---
HPI - URI/Sore Throat General Chief Complaint: Shortness of Breath/Dyspnea Stated Complaint: ASTHMA Time Seen by Provider: 07/06/21 13:36 Source: patient and RN notes reviewed History of Present Illness HPI Narrative: Patient is an 81-year-old female who presents the urgent care with complaints of wheezing that started this morning. Patient states she has been using her prescription inhalers and nebulizers. Patient has not taken anything [id number] for her symptoms. Patient also reports of a harsh nonproductive cough. Denies of any other upper respiratory complaints. Denies of any recent exposures. No other acute complaints. Appears anxious. Patient aware of the plan of care. Some parts of this dictation were generated by voice recognition software and may contain typographical and/or grammatical inaccuracies. Related Data Home Medications Medication Instructions Recorded Confirmed diclofenac sodium 1 % topical gel 2 g topical QID 10/19/20 06/15/21 (Voltaren Arthritis Pain) epinephrine 0.3 mg/0.3 mL 0.3 mg IM ONCE 10/19/20 06/15/21 injection, auto-injector felodipine 2.5 mg tablet,extended 2.5 mg PO DAILY 10/19/20 06/15/21 release 24 hr losartan 100 mg tablet 100 mg PO DAILY 10/19/20 06/15/21 mepolizumab 100 mg subcutaneous 100 mg subcut [id number] 10/19/20 06/15/21 solution (Nucala) vit C-vit D-ibvoef-ppgo ox-lutein 1 cap PO DAILY 10/19/20 06/15/21 226 mg-200 unit-0.8 mg-5 mg capsule (PreserVision Lutein) aspirin 81 mg tablet,delayed 81 mg PO DAILY 04/16/21 06/15/21 release (Aspirin Low Dose) Allergies Allergy/AdvReac Type Severity Reaction Status Date / Time guanfacine [From Tenex] Allergy Intermediate Unknown-PT Verified 06/08/21 11:46 UNABLE TO RECALL propoxyphene Allergy Mild RASH Verified 06/08/21 11:46 adhesive tape Allergy Unknown RASH Verified 06/08/21 11:46 latex Allergy Unknown Rash Verified 06/08/21 11:46 ondansetron Allergy Unknown Unknown-PT Verified 06/08/21 11:46 UNABLE TO RECALL Penicillins Allergy Unknown Rash Verified 06/08/21 11:46 Sulfa (Sulfonamide Allergy Unknown Unknown-PT Verified 06/08/21 11:46 Antibiotics) UNALBE TO RECALL verapamil Allergy Unknown Unknown-PT Verified 06/08/21 11:46 UNALBE TO RECALL citalopram [From Celexa] AdvReac Intermediate Unknown-PT Verified 06/08/21 11:46 UNALBE TO RECALL gabapentin AdvReac Intermediate Unknown-PT Verified 06/08/21 11:46 UNABLE TO RECALL diclofenac AdvReac Unknown Gastrointestinal Verified 06/08/21 11:46 Upset tramadol AdvReac Unknown Gastrointestinal Verified 06/08/21 11:46 Upset TRAMADOL HCL Allergy Mild RASH Uncoded 06/02/21 11:57 Review of Systems Review of Systems: CONSTITUTIONAL: Denies fever, chills, or sweats. EYES: Denies visual changes, redness, or discharge. ENT: Denies rhinorrhea, congestion, sore throat, or otalgia. CARDIOVASCULAR: Denies chest pain, palpitations, or edema. RESPIRATORY: Reports of nonproductive cough with intermittent dyspnea and wheezing GASTROINTESTINAL: Denies abdominal pain, nausea, vomiting, or diarrhea. GENITOURINARY: Denies dysuria or hematuria. SKIN: Denies rash or itching. MUSCULOSKELETAL: Denies back pain, joint pain, or myalgia. NEUROLOGIC: Denies headache, numbness, or weakness. All other systems reviewed are negative, except as documented in HPI. [facility] Past Medical History Medical History (Updated 07/06/21 @ 14:12 by AURORA Smith) Anxiety Asthma Benign essential hypertension BMI 29.0-29.9,adult BMI 30.0-30.9,adult BMI 31.0-31.9,adult Carotid stenosis Cellulitis Cervicalgia Cough Diastolic dysfunction DJD (degenerative joint disease) DJD (degenerative joint disease) of cervical spine Encounter for Medicare annual wellness exam Encounter to establish care Follow up Hearing loss Hunner's ulcer Hx of colonic polyps Hyperlipidemia Hypothyroidism (acquired) Insomnia Insulin resistance LBBB
[2021-07-06 13:57] VITALS: BP 108/81; PULSE 79; RESP 20; TEMP 36.4; O2SAT 98
== END 2021-07-06 14:16 | disposition home or self-care (01) ==
PROVIDERS: Emergency Provider Nurse Practitioner Family; PCP Internal Medicine
DX: R05.9 Cough, unspecified (principal); Z87.891 Personal history of nicotine dependence; Z85.820 Personal history of malignant melanoma of skin; Z85.840 Personal history of malignant neoplasm of eye; Z86.16 Personal history of COVID-19; I10 Essential (primary) hypertension; Z86.73 Personal history of transient ischemic attack (TIA), and cerebral infarction without residual deficits; Z96.652 Presence of left artificial knee joint
CPT/HCPCS: 71046; 99213; G0463

== ENCOUNTER 2021-07-25 12:09 | Outpatient (CLI) | payer MEDICARE, OTHER, SELFPAY ==
--- NOTE | ~2021-07-25 | XR_ITS ---
XR hip RT min 2V DATE: 07/25/2021 12:35 INDICATION: Chronic right hip pain TECHNIQUE: AP and lateral views COMPARISON: None FINDINGS: Prominent degenerative disc disease at L4-5 and L5-S1. The pubic symphysis and right sacroiliac joint are intact. There is mild right hip osteoarthritis. No fracture or dislocation, avascular necrosis or bone destruction of the right hip. IMPRESSION: Mild right hip osteoarthritis Prominent degenerative disc disease at L4-5 and L5-S1 Reviewed, dictated and finalized at location A.
== END 2021-07-25 12:10 | disposition home or self-care (01) ==
PROVIDERS: PCP Internal Medicine; Visit Provider Internal Medicine
DX: M16.11 Unilateral primary osteoarthritis, right hip (principal); M51.37 Other intervertebral disc degeneration, lumbosacral region
CPT/HCPCS: 73502

== ENCOUNTER 2021-10-24 13:40 | Outpatient (CLI) | payer MEDICARE, OTHER, SELFPAY ==
--- NOTE | 2021-10-24 14:45 | ECHO_ITS ---
Patient Info Name: Nadine Burden Age: 81 years : 1940 Gender: Female Ht: 66 in Wt: 175 lbs BSA: 1.94 m2 HR: 68 bpm BP: 86 / 61 mmHg Technical Quality: Fair Exam Date: 10/24/2021 3:27 PM Exam Location: [facility] Patient Status: Outpatient Admit Date: 10/24/2021 Staff Ordering Physician: Lalo Valera MD Cleaner And Presser: Nano Frey RDCS Attending Provider: Lalo Valera MD Referring Physician: Soto SHANNON; Exam Type: CA echo doppler color flow Study Info Indications R06.00 - Dyspnea, unspecified Complete two-dimensional, color flow and Doppler transthoracic echocardiogram is performed. Summary 1. Complete two-dimensional, color flow and Doppler transthoracic echocardiogram is performed. 2. Left ventricular chamber dimension is normal. 3. Left ventricular systolic function is normal, estimated at 65-70%. 4. The left ventricular diastolic function is grade I diastolic dysfunction. 5. E/e' 14 is mildly elevated. 6. Left atrial chamber dimension is mildly enlarged. 7. There is moderate aortic valve sclerosis. 8. There is mild aortic valve stenosis with a peak velocity of 258 cm/s, mean gradient of 11 mmHg, and aortic valve area of 1.7 cm2. 9. There is trivial pericardial effusion. Left Ventricle E/e' 14 is mildly elevated. Left ventricular chamber dimension is normal. Left ventricular systolic function is normal, estimated at 65-70%. The left ventricular diastolic function is grade I diastolic dysfunction. Right Ventricle Right ventricular systolic function is normal with normal TAPSE 2.0 cm. Right ventricular chamber dimension is normal. Left Atria Left atrial chamber dimension is mildly enlarged. Right Atria Right atrial chamber dimension is normal. Aortic Valve The aortic valve is probable trileaflet. There is moderate aortic valve sclerosis. There is mild aortic valve stenosis with a peak velocity of 258 cm/s, mean gradient of 11 mmHg, and aortic valve area of 1.7 cm2. There is no aortic valve regurgitation. Pulmonic Valve There is no pulmonic regurgitation. Mitral Valve There is no mitral valve stenosis. There is no mitral valve regurgitation. Tricuspid Valve There is no tricuspid valve regurgitation. Pericardium/Pleural There is trivial pericardial effusion. Inferior Vena Cava Normal inferior vena cava with >50% collapse upon inspiration consistent with normal right atrial pressure, 5 mmHg. Aorta The aortic root size at the sinus of Valsalva is normal. Left Ventricular Outflow Tract Name Value Normal LVOT 2D LVOT Diameter 2.0 cm LVOT Doppler LVOT Peak Gradient 5 mmHg LVOT Mean Gradient 3 mmHg LVOT VTI 29 cm LVOT VTI/AV VTI Ratio 0.6 LVOT Stroke Volume 87 ml LVOT CO 16.2 l/min LVOT CI 8.3 l/min/m2 Mitral Valve Name
--- NOTE | 2021-10-25 12:09 | WPDPFTINT ---
PFT Procedure Performed PFT Procedure Performed Spirometry with Pre/Post Bronchodilator Plethysmography (Lung Vol) Diffusing Cap (DLCO) Flow Vol Loop PFT Interpretation Lung volumes were measured with the body plethysmography method. The diminished lung volumes are indicative of mild restrictive respiratory disease. Spirometry showed diminished expiratory flow rates and a normal FEV1 to FVC ratio 72%, consistent with restrictive respiratory disease. Following administration of a bronchodilator, there was no significant increase in expiratory flow rates. Lung diffusion capacity is mildly reduced at 71% predicted. The flow volume loop is unremarkable. Impression: Mild restrictive respiratory disease. Mild reduction in lung diffusion capacity.
== END 2021-10-24 13:41 | disposition home or self-care (01) ==
LOC: ANHPFT 13:42
PROVIDERS: PCP Internal Medicine; Visit Provider Internal Medicine Pulmonary Disease
DX: R06.00 Dyspnea, unspecified (principal); J82.83 Eosinophilic asthma; I51.89 Other ill-defined heart diseases; R94.2 Abnormal results of pulmonary function studies
CPT/HCPCS: 93306; 94060; 94726; 94729

== ENCOUNTER 2021-11-26 08:00 | Outpatient (CLI) | payer MEDICARE, OTHER, SELFPAY ==
--- NOTE | 2021-12-09 17:06 | WPDSLEEPSTUD ---
Sleep Study Date of Study: 11/26/21 Ordering Provider: Femi Blas MD Interpreting Physician: Natali Harmon MD Sleep Study Type: Split Polysomnogram Height: 1.68 m Weight: 81.193 kg Body Mass Index: 28.8 Neck Circumference (inches): 15.5 [place]: 6 Reason for Sleep Study Constantly being sleepy, falling asleep any time she sits down Sleep History Nadine Burden is an 81-year-old woman who says she can fall asleep even after having a good night of sleep. If she sits down to watch TV she is sleepy. While watching the morning news for 5 minutes she may fall asleep for an hour sometimes 2 hours. She does not know when sleep will start. This intense sleepiness began 2 months ago. She wakes up during the night around 6:30 a.m. to go to the bathroom occasionally. She does not awaken from sleep feeling short of breath. She occasionally awakens at night with heartburn, belching or coughing. She rarely snores but never loudly enough that others complain. She does not have trouble sleeping with a cold. She does not wake up gasping for breath at night and does not have breathing problems at night reported to her by others. She constantly sweats excessively at night and rarely notices her heart pounding or beating irregularly at night. She has diastolic dysfunction and a left bundle branch block. She frequently falls asleep involuntarily. She never falls asleep while driving. She does not have loss of muscle tone with strong emotion. She is retired, does not have problems with a job due to excessive sleepiness. She does not feel paralyzed on waking or falling asleep. She rarely has vivid dreamlike scenes on waking or falling asleep. She does not feel afraid to go to sleep. She does not have nightmares. She rarely dreams and never has dream recall. She does not have racing thoughts. She rarely feels sad or depressed. She occasionally has anxiety. She frequently has muscular tension. She does not notice parts of her body jerking. She does not kick at night. She does not have crawling aching feelings in her legs or any kind of leg pain at night. She does not have morning jaw pain. She rarely grinds her teeth at night. She frequently is bothered by pain during the day. She never is awakened by pain at night. She frequently wakes up feeling stiff in the morning with sore achy muscles and pain in the neck and spine. She has headaches, mild memory problems and rare concentration difficulties. Normal bedtime is 10:30 p.m. falling asleep within 10-15 minutes. She does not generally wake up during the night. She does wake up around 6 in the morning to go to the bathroom and is back to sleep until 7:30 a.m.. She wakes up using an alarm. Her weekend schedule is the same. She estimates getting 8 hours of sleep at night. She takes naps in the afternoon or evening. These are never planned naps. She generally does not feel refreshed after short nap. She is drowsy in the morning for 2 hours after waking. She feels better in the morning in the afternoon but she does become a little tired in the afternoon. Habits: Quit tobacco years ago. No caffeine. Alcohol rarely on special occasions. No recreational drugs. [facility] Past Medical History Medical History Abscess of groin, left Anxiety Asthma Asthmatic pulmonary eosinophilia Benign essential hypertension BMI 28.0-28.9,adult BMI 29.0-29.9,adult BMI 30.0-30.9,adult BMI 31.0-31.9,adult Candidiasis of other urogenital sites Carotid stenosis Cellulitis Cervicalgia CKD (chronic kidney disease) Cognitive dysfunction Cough Diastolic dysfunction DJD (degenerative joint disease) DJD (degenerative joint disease) of cervical spine DM type 2 (diabetes mellitus, type 2) Encounter for Medicare annual wellness exam Encounter for routine adult health examination with abnormal findings Encounter for routine adult health examination with
[2021-12-09 17:08] VITALS: BMI 28.8
== END 2021-11-27 07:06 | disposition home or self-care (01) ==
LOC: ANHCSM 08:02
PROVIDERS: PCP Internal Medicine; Visit Provider Internal Medicine
DX: G47.10 Hypersomnia, unspecified (principal); G47.33 Obstructive sleep apnea (adult) (pediatric)
CPT/HCPCS: 95811

== ENCOUNTER 2021-12-26 15:54 | Emergency (ER) | payer MEDICARE, OTHER, SELFPAY ==
--- NOTE | ~2021-12-26 | XR_ITS ---
XR hip RT 2V w AP pelvis DATE: 12/26/2021 18:48 INDICATION: Right hip pain TECHNIQUE: AP pelvis. AP and lateral views of right hip COMPARISON: None FINDINGS: Osteopenia. Degenerative disease is noted L4-5 and L5-S1. Normal alignment at the pubic symphysis and sacral iliac joints. No pelvic fracture or bone destructi on is detected. No fracture, dislocation, avascular necrosis or bone destruction of the right hip. Mild bilateral hip osteophytes arthritis. Right hip joint space appears relatively preserved and symmetric with the lef t side.. IMPRESSION: Prominent degenerative disc disease at L4-5 and L5-S1 Osteopenia Mild bilateral hip osteoid arthritis. No fracture or dislocation or bone destruction of right hip Reviewed, dictated and finalized at location A. [employer]
--- NOTE | ~2021-12-26 | XR_ITS ---
XR knee RT 3V DATE: 12/26/2021 18:48 INDICATION: Fall. Knee pain. TECHNIQUE: 3 views including crosstable lateral COMPARISON: None FINDINGS: There is osteopenia. No fracture or dislocation or joint effusion. No periosteal reaction o r bone destruction. Joint spaces are relatively preserved. There is mild periarticular spurring of th e patella. There is chondrocalcinosis. Femoral and popliteal artery calcifications. IMPRESSION: Osteopenia Mild osteoarthritis Chondrocalcinosis Reviewed, dictated and finalized at location A. NTION MANAGER
--- NOTE | ~2021-12-26 | XR_ITS ---
XR shoulder RT min 2V DATE: 12/26/2021 18:48 INDICATION: Fall. Shoulder pain. TECHNIQUE: 4 views COMPARISON: None FINDINGS: There is osteopenia. Mild degenerative change of the right acromioclavicular joint. There is prominent osteoarthritis at t he right glenohumeral joint. No right shoulder fracture or dislocation, periosteal reaction or bone destruction is detected. Status post anterior cervical spine surgical fusion. Degenerative change of the cervical spine. IMPRESSION: Degenerative changes at the right acromioclavicular and glenohumeral joints Osteopenia line anterior cervical spine surgical fusion, degenerative change of cervical spine Reviewed, dictated and finalized at location A. NCIAL SERVICES ASSOCIATE IMPRESSION: Degenerative changes at the right acromioclavicular and glenohumera l joints Osteopenia line anterior cervical spine surgical fusion, degenerative change of cervical spine
--- NOTE | ~2021-12-26 | CT_ITS ---
EXAMINATION: CT brain wo con DATE: 12/26/2021 17:29 INDICATION: Fall. Head injury. TECHNIQUE: Computed tomography (CT) of the head was performed without intravenous contrast. The mA wa s adjusted according to patient size. Iterative reconstruction technique was employed. Exam dose: 68 1.00 mGy-cm total exam DLP. COMPARISON: 04/11/2021 CT brain FINDINGS: There is cerebral atherosclerosis. There are chronic bilateral basal ganglia lacunar infarc ts. Ventricular size is normal. There is nonspecific diminished attenuation cerebral white matter, li sawyer due to chronic small vessel ischemic changes. There is cerebral cortical and cerebellar volume loss. No subdural or epidural hematoma is detected. Mild right frontal cephalohematoma is suggested. No skull fracture or bone destruction is detected. 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 Reviewed, dictated and finalized at location A. 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
--- NOTE | ~2021-12-26 | CT_ITS ---
EXAMINATION: CT cervical spine wo con DATE: 12/26/2021 17:36 INDICATION: Head injury TECHNIQUE: Computed tomography (CT) of the cervical spine was performed without intravenous contrast. The dose-length product (DLP) was 356.72 mGy-cm. Automated exposure control and iterative reconstruc tion technique were employed. COMPARISON: None FINDINGS: There are 2 mm of anterolisthesis of C3 on C4, C4 on C5, and C6 on C7. There are changes of anterior fusion with interbody device at C5-6. The odontoid is intact. There is no fracture. There i s multilevel severe facet and uncovertebral joint osteoarthritis. There is severe loss of interverteb ral disc space height at C6-7 and C7-T1. The prevertebral soft tissues are normal. IMPRESSION: 1. Moderate cervical spondylosis without acute findings or significant interval change. Reviewed, dictated and finalized at location F. DATA LEAD
[2021-12-26 16:03] VITALS: BP 132/79; PULSE 68; RESP 18; TEMP 36.3; O2SAT 97
--- NOTE | 2021-12-26 18:13 | ED.FALL ---
HPI - Fall General Chief Complaint: Fall Stated Complaint: really bad fall Time Seen by Provider: 12/26/21 18:04 History of Present Illness HPI Narrative: Patient is an 81-year-old female here for evaluation after a fall today. Patient states that she was walking in her usual state of health when she missed a curb, causing her to fall forward, striking her forehead against the ground. Patient also believes she struck her right shoulder and right knee against the ground. Patient required some assistance getting up but since then she has been able to walk. She denies any loss of consciousness. No blood thinner use. Currently complaining of right shoulder and knee pain, forehead discomfort and a bruise to her right forehead. Has not taken any pain medicine since then. She spoke with her PCP who recommended ED evaluation. Patient denied any preceding chest pain, shortness of breath, weakness or confusion prior to the fall. Patient tells me that she has chronic discomfort in her hips knees and shoulders due to arthritis. Her tetanus shot is up-to-date. Related Data Home Medications Medication Instructions Recorded Confirmed diclofenac sodium 1 % topical gel 2 g topical QID 10/19/20 12/10/21 (Voltaren Arthritis Pain) epinephrine 0.3 mg/0.3 mL 0.3 mg IM ONCE 10/19/20 12/10/21 injection, auto-injector mepolizumab 100 mg subcutaneous 100 mg subcut [id number] 10/19/20 12/10/21 solution (Nucala) vit C 226 mg-vit E 90 mg-copper 1 cap PO DAILY 10/19/20 12/10/21 0.8 mg-zinc oxide-lutein 5 mg capsule (PreserVision Lutein) aspirin 81 mg tablet,delayed 81 mg PO DAILY 04/16/21 12/10/21 release (Jose Low Dose Aspirin) azelastine 205.5 mcg (0.15 %) 2 spray intranasal DAILY 11/01/21 12/10/21 nasal spray (Astepro Allergy) Allergies Allergy/AdvReac Type Severity Reaction Status Date / Time guanfacine [From Tenex] Allergy Intermediate Unknown-PT Verified 12/05/21 10:42 UNABLE TO RECALL propoxyphene Allergy Mild RASH Verified 12/05/21 10:42 adhesive tape Allergy Unknown RASH Verified 12/05/21 10:42 latex Allergy Unknown Rash Verified 12/05/21 10:42 ondansetron Allergy Unknown Unknown-PT Verified 12/05/21 10:42 UNABLE TO RECALL Penicillins Allergy Unknown Rash Verified 12/05/21 10:42 Sulfa (Sulfonamide Allergy Unknown Unknown-PT Verified 12/05/21 10:42 Antibiotics) UNALBE TO RECALL verapamil Allergy Unknown Unknown-PT Verified 12/05/21 10:42 UNALBE TO RECALL citalopram [From Celexa] AdvReac Intermediate Unknown-PT Verified 12/05/21 10:42 UNALBE TO RECALL gabapentin AdvReac Intermediate Unknown-PT Verified 12/05/21 10:42 UNABLE TO RECALL diclofenac AdvReac Unknown Gastrointestinal Verified 12/05/21 10:42 Upset tramadol AdvReac Unknown Gastrointestinal Verified 12/05/21 10:42 Upset TRAMADOL HCL Allergy Mild RASH Uncoded 12/05/21 10:42 Review of Systems Review of Systems: Gen: Denies fevers or chills Eyes: Denies eye pain or visual change ENT: Denies congestion Respiratory: Denies shortness of breath or cough CV: Denies chest pain or palpitations GI: Denies abdominal pain nausea, emesis or diarrhea : denies burning, urgency, frequency or hematuria Musculoskeletal: Reports right knee and right shoulder pain. Denies back pain or muscle pain Neuro: Denies numbness, tingling, weakness or focal weakness Skin: Reports bruise to right forehead. Except as documented, all other systems reviewed and negative [facility] Past Medical History Medical History Abscess of groin, left Anxiety Asthma Asthmatic pulmonary eosinophilia Benign essential hypertension BMI 28.0-28.9,adult BMI 29.0-29.9,adult BMI 30.0-30.9,adult BMI 31.0-31.9,adult Candidiasis of other urogenital sites Carotid stenosis Cellulitis Cervicalgia CKD (chronic kidney disease) Cognitive dysfunction Cough Diastolic dysfunction DJD (d
--- NOTE | 2021-12-26 18:24 | PC.NURSE ---
Patient off unit to Radiology.
[2021-12-26] MEDS: ACETAMINOPHEN 325 MG TABLET 650 MG PO (19:05)
== END 2021-12-26 19:10 | disposition home or self-care (01) ==
PROVIDERS: Emergency Provider Emergency Medicine; PCP Internal Medicine
DX: S09.90XA Unspecified injury of head, initial encounter (principal); Z87.891 Personal history of nicotine dependence; F41.9 Anxiety disorder, unspecified; J45.909 Unspecified asthma, uncomplicated; N18.9 Chronic kidney disease, unspecified; E11.9 Type 2 diabetes mellitus without complications; E78.5 Hyperlipidemia, unspecified; E03.9 Hypothyroidism, unspecified; W10.1XXA Fall (on)(from) sidewalk curb, initial encounter
CPT/HCPCS: 70450; 72125; 73030; 73502; 73562; 99284; A9270

== ENCOUNTER 2022-08-30 10:59 | Outpatient (CLI) | payer MEDICARE, OTHER, SELFPAY ==
[2022-08-30 11:51] LABS: Prothrombin Time 13.4 Seconds (11.1-14.7)
[2022-08-30 11:52] LABS: Partial Thromboplastin Time 30.9 SECONDS (22.3-36.8)
[2022-08-30 11:54] LABS: Anion Gap 8 mmol/L (8-16); Blood Urea Nitrogen 20 mg/dL (7-17); Calcium 9.9 mg/dL (8.4-10.2); Carbon Dioxide 31 mmol/L (22-30); Chloride 102 mmol/L (98-107); Estimated Glomerular Filt Rate 60; Glucose 101 mg/dL (65-110); Sodium 141 mmol/L (137-145)
== END 2022-08-30 11:00 | disposition home or self-care (01) ==
LOC: ANHSURGERY 11:05
PROVIDERS: Anesthesiology; PCP Internal Medicine; Visit Provider Urology
DX: N18.9 Chronic kidney disease, unspecified (principal); Z01.818 Encounter for other preprocedural examination
CPT/HCPCS: 36415; 80048; 85610; 85730

== ENCOUNTER 2022-09-06 00:37 | Day surgery (SDC) | payer MEDICARE, OTHER, SELFPAY ==
[2022-08-28 11:11] VITALS: BMI 26.9
--- NOTE | 2022-08-28 11:39 | PC.NURSE ---
Report to the Outpatient Waiting Room, entrance under the green pavilion located off [facility], at time __7:45AM on date __09/06/22 . Planned Procedure Time: _9:45AM . Time changes happen often and if your time is changed the preop area will call you the afternoon before. - You and your visitor will be asked to self-screen and do not enter if you have any COVID symptoms. - A mask is optional within the hospital at this time. Patients may have clear liquids (water, carbonated beverages, clear teas, apple juice) until 3 hours prior to surgery with a maximum of 20 ounces. - No food from midnight until time of surgery Take the following medications with a SIP of water the morning of surgery: ___ADVAIR INHALER, CARVEDILOL, LEVOTHYROXINE. NEEDED- NEBULIZER, COMBIVENT INHALER, NASAL SPRAY DO NOT STOP ANY OF YOUR OTHER PRESCRIPTION MEDICATIONS PRIOR TO SURGERY ?EXCEPT THE FOLLOWING Medications to discontinue per physician __HOLD ASPIRIN 7 DAYS PRE-OP PER DR ROSADO- LAST DOSE 08/29/22. HOLD ALL VITAMINS/SUPPLEMENTS 3 DAYS PRE-OP PER ANESTHESIA- LAST DOSE 09/02/22 Please no make-up, nail kinyarwanda, hairspray, perfume, deodorant, or body powder the day of surgery. No jewelry (including any body piercings) or valuables the day of surgery, leave them at home. Please take a shower or bath the night before, or the morning of, surgery with an antibacterial soap. Wear comfortable, loose fitting clothing. Children are encouraged to wear pajamas. - Jewelry must be removed prior to entering the operating room. Rings and piercings that are not removed may be cut off. - The hospital will not accept responsibility for valuables. - Please leave all valuables, including medications, at home the day of surgery. If you are going home after surgery, a licensed wrecker driver must drive you home. - NO public transportation without another adult if you receive anesthesia. - We recommend that an adult stay with you for 24 hours following discharge. - We also recommend that you do not drive, make important decision, drink alcoholic beverages, or take any drugs that were not prescribed by your health care provider for at least 24 hours after your discharge time. Follow any additional instructions given to you from your surgeon. If you or anyone in your household have experienced Covid symptoms in the past week, please notify your surgeon or the nurse liaison at the phone number below for possible testing. Telephone instructions given to __PATIENT'S SONJEANNIE and asked if any additional questions and then verbalized understanding. Patient advised to call surgeon office or pre surgery nurse liaison [phone] if any additional questions.
--- NOTE | 2022-09-04 18:28 | PM.IMHP ---
H&P: HPI History of Present Illness Date/Time: 09/04/22 18:28 Chief Complaint: Incontinence Narrative: she has mixed incontinence. Stress incontinence confirmed on urodynamics. She would like surgical treatment of her stress incontinence Review of Systems Review of Systems: All systems reviewed & are unremarkable except as noted in HPI and below [facility] Past Medical History Medical History Abscess of groin, left Anxiety Asthma Asthmatic pulmonary eosinophilia Benign essential hypertension BMI 28.0-28.9,adult BMI 29.0-29.9,adult BMI 30.0-30.9,adult BMI 31.0-31.9,adult Candidiasis of other urogenital sites Carotid stenosis Cellulitis Cervicalgia CKD (chronic kidney disease) Cognitive dysfunction Cough Diastolic dysfunction 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 Eosinophilic asthma Fatigue Follow up Hearing loss Hunner's ulcer Hx of colonic polyps Hyperlipidemia Hypersomnolence Hypothyroidism (acquired) Insomnia Insulin resistance LBBB (left bundle branch block) Major depression, recurrent, chronic Melanoma of eye Memory loss Microscopic hematuria Muscle spasm 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 Hx of hysterectomy Family History Family History Father Family history of Alzheimer's disease, Onset Age: 76 Diabetes mellitus, Onset Age: 76 Sibling Family history of primary malignant neoplasm of liver, Onset Age: 54 Family history of malignant neoplasm of breast in first degree relative Family history of diabetes mellitus in first degree relative Acute myocardial infarction Diabetes mellitus, Onset Age: 72 Patient's sister is in good health Patient's brother is in good health Family history of malignant neoplasm of stomach Family history of malignant neoplasm Family history of malignant neoplasm of breast Mother Family history of emphysema Family history of rheumatoid arthritis, Onset Age: 69 Grandparent Diabetes mellitus, Onset Age: 80 Other Hypertension Social History Social History Smoking packs per day: 0.5 Smoking cigarettes per day: 10.0 Years smoked: 10 Smoking pack-years: 5.00 Smoking status: Former smoker Tobacco type: cigarettes Second hand tobacco smoke exposure: No Smoking end date: 08/10/74 Additional smoking assessment comments: PT STATES QUITING Alcohol intake: current Alcohol use details: Rare , social ETOH Substance use: never Lack of Transportation: No Lack of Food: Never True Current Housing: I Have Housing Concerned About Future Housing: No Difficulty Paying Gas/Electric Bills: No Difficulty Paying for Meds: No Currently Unemployed: No Education: High School Diploma/GED Difficulty w/ Childcare or Family Care: No Living arrangements: assisted living Gender identity (if verbalized by the patient): Female Spiritual care concerns: No Meds Home Medications and Allergies Home Medications Medication Instructions Recorded Confirmed Type epinephrine 0.3 mg/0.3 mL 0.3 mg IM ONCE PRN
--- NOTE | 2022-09-05 09:00 | WPDANESEPPF ---
Anes - Initial Pre Proc Eval Procedure: Operation Date: 09/06/22 09:45 Proposed Procedures p Cystoscopy with Bulkamid Injection - Albaro Ames MD Date/Time: 09/05/22 09:00 Surgeon: Albaro Ames MD Pre Op Diagnosis: Intrinsic Sphincter Deficiency Patient Data Age: 82 Gender: F Height: 1.7 m Weight: 78 kg Allergies Allergy/AdvReac Type Severity Reaction Status Date / Time guanfacine [From Tenex] Allergy Intermediate Unknown-PT Verified 09/06/22 07:52 UNABLE TO RECALL propoxyphene Allergy Mild RASH Verified 09/06/22 07:52 adhesive tape Allergy Unknown REDNESS, Verified 09/06/22 07:52 RASH latex Allergy Unknown Rash Verified 09/06/22 07:52 ondansetron Allergy Unknown Unknown-PT Verified 09/06/22 07:52 UNABLE TO RECALL Penicillins Allergy Unknown Rash Verified 09/06/22 07:52 Sulfa (Sulfonamide Allergy Unknown Unknown-PT Verified 09/06/22 07:52 Antibiotics) UNALBE TO RECALL verapamil Allergy Unknown Unknown-PT Verified 09/06/22 07:52 UNALBE TO RECALL citalopram [From Celexa] AdvReac Intermediate Unknown-PT Verified 09/06/22 07:52 UNALBE TO RECALL gabapentin AdvReac Intermediate DAVIS, NAUSEA Verified 09/06/22 07:52 diclofenac AdvReac Unknown Gastrointestinal Verified 09/06/22 07:52 Upset tramadol AdvReac Unknown Gastrointestinal Verified 09/06/22 07:52 Upset Home Medications Medication Instructions Recorded Confirmed Type epinephrine 0.3 mg/0.3 mL 0.3 mg IM ONCE PRN Allergic 10/19/20 08/28/22 History injection, auto-injector Reaction mepolizumab 100 mg subcutaneous 100 mg subcut [id number] 10/19/20 08/28/22 History solution (Nucala) vit C 226 mg-vit E 90 mg-copper 1 cap PO DAILY 10/19/20 08/28/22 History 0.8 mg-zinc oxide-lutein 5 mg capsule (PreserVision Lutein) aspirin 81 mg tablet,delayed 81 mg PO DAILY 04/16/21 08/28/22 History release (Jose Low Dose Aspirin) azelastine 205.5 mcg (0.15 %) 2 spray intranasal QAM 11/01/21 08/28/22 History nasal spray (Astepro Allergy) loperamide 2 mg tablet 2 mg PO DAILY PRN Diarrhea #90 tabs 11/05/21 08/28/22 Rx furosemide 40 mg tablet 40 mg PO QAM #90 tabs 12/31/21 08/28/22 Rx diclofenac sodium 1 % topical gel 3 g topical QID #300 grams 03/13/22 08/28/22 Rx (Voltaren Arthritis Pain) calcium carbonate 600 mg calcium 600 mg PO BID 04/02/22 08/28/22 History (1,500 mg) tablet (Calcium) montelukast 10 mg tablet 10 mg PO QHS 90 days #90 tabs 04/08/22 08/28/22 Rx carvedilol 12.5 mg tablet 12.5 mg PO Q12H #180 tabs 04/18/22 08/28/22 Rx donepezil 5 mg tablet 5 mg PO QHS 04/23/22 08/28/22 History albuterol sulfate 2.5 mg/3 mL 2.5 mg (3 mL) inhalation Q6H PRN 05/17/22 08/28/22 Rx (0.083 %) solution for nebulization shortness of breath or wheezing #1,080 mL losartan 50 mg tablet 50 mg PO QAM 06/12/22 08/28/22 History acetaminophen 650 mg 650 mg PO QAM 08/28/22 08/28/22 History tablet,extended release calcitriol 0.25 mcg capsule 0.25 mcg PO QAM 08/28/22 08/28/22 History ergocalciferol (vitamin D2) 1,250 1,250 mcg PO WEEKLY 08/28/22 08/28/22 History mcg (50,000 unit) capsule escitalopram oxalate 20 mg tablet 20 mg PO HS 08/28/22 08/28/22 History fluticasone propionate 230 2 puff inhalation QAM Dyspnea 08/28/22 08/28/22 History mcg-salmeterol 21 mcg/actuation HFA inhaler (Advair HFA) fluticasone propionate 50 2 spray intranasal BID PRN 08/28/22 08/28/22 History mcg/actuation nasal Congestion spray,suspension ipratropium 20 mcg-albuterol 100 1 puff inhalation Q4H PRN Dyspnea 08/28/22 08/28/22 History mcg/actuation mist for inhalation (Combivent Respimat) levothyroxine 100 mcg tablet 100 mcg PO QAM 08/28/22 08/28/22 History rosuvastatin 10 mg tablet 10 mg PO QAM 08/28/22 08/28/22 History terbinafine HCl 250 mg tablet 250 mg PO DAILY 08/28/22 08/28/22 History phenazopyridine 200 mg tablet 200 mg PO TID PRN pain 15 doses 09/06/22 Rx (Pyridium) #15 tabs
--- NOTE | 2022-09-06 07:21 | WPDHPUPDATE1 ---
History and Physical Update Update Date/Time: 09/06/22 07:21 History and Physical has been reviewed, including an updated exam of the patient. There are NO changes in the patient's condition. Risks, benefits, and alternatives have been discussed and questions answered. Patient agrees to proceed with procedure.
[2022-09-06 07:54] VITALS: BP 162/71; PULSE 56; RESP 16; TEMP 36.8; O2SAT 94
[2022-09-06] MEDS: LACTATED RINGERS 1,000 ML 30 ML IV CONT (08:14)
[2022-09-06] MEDS: ceFAZolin 2 GM/D5W 50 ML 2 GM/50 ML BAG IVPB (09:19)
--- NOTE | 2022-09-06 09:39 | W.PM.PROC2 ---
Procedure Note - Detailed Date of Procedure 09/06/22 Pre-op Diagnosis Intrinsic Sphincter Deficiency Post-op Diagnosis Same Procedure Performed Cystoscopy with suburethral injection of implant material Surgeon Albaro Ames MD Consulting Senior Practice Director None Anesthesia MAC and Local (Lidocaine jelly) Indications She has mixed urinary incontinence. She has stress incontinence due to intrinsic sphincter deficiency. She would like a procedure for that. She is here today for a bulking agent. She understands risks of bleeding, infection, lack of efficacy, urinary retention, need for repeat procedures. She agrees to proceed Findings Open urethra consistent with intrinsic sphincter deficiency Description of Procedure She was correctly identified. Informed consent obtained. She from the operating room. She was given MAC anesthesia. She was placed in the dorsal lithotomy position. She was prepped and draped in a sterile fashion. Time-out performed. I performed cystoscopy. The bladder was examined. There is no significant abnormalities. Ureteral orifices were normal. Urethra is open consistent with intrinsic sphincter deficiency. I chose a site 2 cm distal to bladder neck. I injected bulking agent circumferentially. I performed several pillows collapsing urethra. I used to complete syringes. There was no leakage with Crede a maneuver. Her bladder was left full. She was awakened transferred to PACU in stable condition. Implants Bulking agent Estimated Blood Loss 1 Drains No Packing No Pathology None sent Complications No immediate complications Condition Stable Disposition PACU
[2022-09-06 09:40] VITALS: BP 110/63; PULSE 60; RESP 16; O2SAT 94
[2022-09-06 10:00] VITALS: BP 119/62; PULSE 57; RESP 16
[2022-09-06 10:20] VITALS: BP 161/89; PULSE 60; RESP 16
== END 2022-09-06 10:37 | disposition home or self-care (01) ==
PROVIDERS: PCP Internal Medicine; Visit Provider Urology
PROC: 3E0K8GC Introduction of Other Therapeutic Substance into Genitourinary Tract, Via Natural or Artificial Opening Endoscopic (ICD-10-PCS; CPT 52327; principal; 2022-09-06 09:45)
DX: N36.42 Intrinsic sphincter deficiency (ISD) (principal); N39.3 Stress incontinence (female) (male); I13.0 Hypertensive heart and chronic kidney disease with heart failure and stage 1 through stage 4 chronic kidney disease, or unspecified chronic kidney disease; E11.22 Type 2 diabetes mellitus with diabetic chronic kidney disease; N18.9 Chronic kidney disease, unspecified; I50.9 Heart failure, unspecified; F41.9 Anxiety disorder, unspecified; M47.892 Other spondylosis, cervical region; I44.7 Left bundle-branch block, unspecified; J45.909 Unspecified asthma, uncomplicated; J82.83 Eosinophilic asthma; E78.5 Hyperlipidemia, unspecified; F03.90 Unspecified dementia, unspecified severity, without behavioral disturbance, psychotic disturbance, mood disturbance, and anxiety; G47.10 Hypersomnia, unspecified; E03.9 Hypothyroidism, unspecified; G47.00 Insomnia, unspecified; F33.9 Major depressive disorder, recurrent, unspecified; R41.3 Other amnesia; G47.33 Obstructive sleep apnea (adult) (pediatric); Z87.891 Personal history of nicotine dependence; Z79.82 Long term (current) use of aspirin; Z79.51 Long term (current) use of inhaled steroids; Z86.73 Personal history of transient ischemic attack (TIA), and cerebral infarction without residual deficits
CPT/HCPCS: 52327; J0690; J2704; J3010; J7120; L8606

== ENCOUNTER 2022-10-25 19:18 | Emergency (ER) | payer MEDICARE, OTHER, SELFPAY ==
--- NOTE | ~2022-10-25 | XR_ITS ---
IMPRESSION: 1. Mild atelectasis at right lung base. EXAMINATION: XR chest 1V portable DATE: 10/26/2022 00:58 INDICATION: Cough. TECHNIQUE: A single frontal view of the chest was obtained. COMPARISON: Chest 2 views 07/06/2021, CT abdomen and pelvis 08/31/2018 FINDINGS: A calcified right lung nodule and calcified right hilar lymph nodes are consistent with old granulomatous disease. There is mild atelectasis at right lung base. No pleural effusion or pneumoth orax. The heart size is normal. There are changes of anterior fusion procedure in cervical spine. IMPRESSION: 1. Mild atelectasis at right lung base. Reviewed, dictated and finalized at location E.
--- NOTE | ~2022-10-25 | CT_ITS ---
EXAMINATION: CT brain wo con DATE: 10/26/2022 01:11 INDICATION: Headache. TECHNIQUE: Computed tomography (CT) of the head was performed without intravenous contrast. The mA wa s adjusted according to patient size. Iterative reconstruction technique was employed. The dose-lengt h product was 681.00 mGy-cm. COMPARISON: Head CT 12/26/2021 FINDINGS: There is no intracranial hemorrhage, acute infarction, or abnormal intracranial mass lesion . There are scattered areas of low attenuation in the cerebral white matter, which is within normal l imits for the patient's age. The ventricles are normal in size. There is mild mucosal thickening in t he paranasal sinuses. There are likely changes of ocular lens replacement surgeries. The mastoid air cells are normal. IMPRESSION: 1. Normal aging brain. Reviewed, dictated and finalized at location E. IMPRESSION: 1. Normal aging brain.
[2022-10-25 19:25] VITALS: BP 209/119; PULSE 68; RESP 17; TEMP 36.3; O2SAT 97
[2022-10-25 21:35] VITALS: BP 192/112; PULSE 61; RESP 15; O2SAT 97
[2022-10-26] VITALS (10 sets, daily range): BP systolic 157–187; BP diastolic 89–104; PULSE 58–62; RESP 16–56; O2SAT 98–100
--- NOTE | 2022-10-26 00:49 | ECG_ITS ---
Measurements Intervals [place] Rate: 58 P: 23 MO: 213 QRS: -23 QRSD: 137 T: 23 QT: 475 QTc: 471 Interpretive Statements SINUS BRADYCARDIA WITH FIRST DEGREE AV BLOCK LEFT BUNDLE BRANCH BLOCK BASELINE ARTIFACT- I, II, AVR, V5 ABNORMAL ECG NO PREVIOUS ECG AVAILABLE FOR COMPARISON Electronically Signed On 10-26-2022 7:29:51 CDT by Chuy Hernandez D.O.
--- NOTE | 2022-10-26 00:53 | ED.RECABL ---
HPI - Recheck/Abnormal Lab/Rx General Chief Complaint: Recheck/Abnormal Lab/Rx Stated Complaint: htn Time Seen by Provider: 10/26/22 00:32 History of Present Illness HPI narrative: 82-year-old female with history of hypertension reports for evaluation with her son/POA for elevated blood pressures and headache for the past 3 to 4 days. Per the son, the patient's PCP decreased her losartan to 50mg 3 months ago because the patient's BP were running around 130-140 systolic. The patient's BP gradually increased and the patient's PCP increased the her losartan back to 100mg 1 week ago. Patient states he has been taking her medications daily, however the son did go over to her house last week and saw that she had not taken her medication for 2 days. They have not followed up with patient's PCP regarding her persistently elevated blood pressure despite medication changes. Patient is also reporting a headache to her temples that wraps around her occiput. She has a history of headaches but states this one is unlike her normal headaches. She describes the headache as pressure . She denies head injury or trauma, neck pain, vision changes, focal numbness or weakness, confusion, dysarthria, dysphagia, dizziness. She reports a slight intermittent cough which she attributes to her asthma. She denies chest pain or shortness of breath, dysuria or hematuria, abdominal pain, nausea, vomiting, diarrhea, chest pain or shortness of breath. Related Data Home Medications Medication Instructions Recorded Confirmed epinephrine 0.3 mg/0.3 mL 0.3 mg IM ONCE PRN Allergic 10/19/20 08/28/22 injection, auto-injector Reaction mepolizumab 100 mg subcutaneous 100 mg subcut [id number] 10/19/20 08/28/22 solution (Nucala) vit C 226 mg-vit E 90 mg-copper 1 cap PO DAILY 10/19/20 08/28/22 0.8 mg-zinc oxide-lutein 5 mg capsule (PreserVision Lutein) aspirin 81 mg tablet,delayed 81 mg PO DAILY 04/16/21 08/28/22 release (Jose Low Dose Aspirin) azelastine 205.5 mcg (0.15 %) 2 spray intranasal QAM 11/01/21 08/28/22 nasal spray (Astepro Allergy) calcium carbonate 600 mg calcium 600 mg PO BID 04/02/22 08/28/22 (1,500 mg) tablet (Calcium) donepezil 5 mg tablet 5 mg PO QHS 04/23/22 08/28/22 losartan 50 mg tablet 50 mg PO QAM 06/12/22 08/28/22 acetaminophen 650 mg 650 mg PO QAM 08/28/22 08/28/22 tablet,extended release calcitriol 0.25 mcg capsule 0.25 mcg PO QAM 08/28/22 08/28/22 ergocalciferol (vitamin D2) 1,250 1,250 mcg PO WEEKLY 08/28/22 08/28/22 mcg (50,000 unit) capsule escitalopram oxalate 20 mg tablet 20 mg PO HS 08/28/22 08/28/22 fluticasone propionate 230 2 puff inhalation QAM Dyspnea 08/28/22 08/28/22 mcg-salmeterol 21 mcg/actuation HFA inhaler (Advair HFA) fluticasone propionate 50 2 spray intranasal BID PRN 08/28/22 08/28/22 mcg/actuation nasal Congestion spray,suspension ipratropium 20 mcg-albuterol 100 1 puff inhalation Q4H PRN Dyspnea 08/28/22 08/28/22 mcg/actuation mist for inhalation (Combivent Respimat) levothyroxine 100 mcg tablet 100 mcg PO QAM 08/28/22 08/28/22 rosuvastatin 10 mg tablet 10 mg PO QAM 08/28/22 08/28/22 terbinafine HCl 250 mg tablet 250 mg PO DAILY 08/28/22 08/28/22 Allergies Allergy/AdvReac Type Severity Reaction Status Date / Time guanfacine [From Tenex] Allergy Intermediate Unknown-PT Verified 09/06/22 07:52 UNABLE TO RECALL propoxyphene Allergy Mild RASH Verified 09/06/22 07:52 adhesive tape Allergy Unknown REDNESS, Verified 09/06/22 07:52 RASH latex Allergy Unknown Rash Verified 09/06/22 07:52 ondansetron Allergy Unknown Unknown-PT Verified 09/06/22 07:52 UNABLE TO RECALL Penicillins Allergy Unknown Rash Verified 09/06/22 07:52 Sulfa (Sulfonamide Allergy Unknown Unknown-PT Verified 09/06/22 07:52 Antibiotics) UNALBE TO RECALL verapamil Allergy Unknown Unknown-PT Verified 09/06/22 07:52 UNALBE TO RECALL citalopram [From Celexa] AdvReac Intermediate Unknown-PT Yosvany
[2022-10-26] MEDS: ALBUTEROL SULFATE NEB 2.5 MG/3 ML INH INHALATION (01:06)
[2022-10-26] MEDS: IPRATROPIUM BR 0.02% INH SOLN 0.5 MG/2.5 ML VIAL INHALATION (01:07)
[2022-10-26] MEDS: PROCHLORPERAZINE EDISYLATE 10 MG/2 ML VIAL IV PUSH (01:28)
[2022-10-26] MEDS: diphenhydrAMINE HCl INJ 50 MG/ML VIAL 25 MG IV PUSH (01:28)
[2022-10-26] MEDS: SODIUM CHLORIDE 0.9% IV 1,000 ML 999 ML IV CONT (01:28)
[2022-10-26] MEDS: ACETAMINOPHEN 500 MG TABLET 1000 MG PO (01:30)
[2022-10-26 01:42] LABS: Basophils Absolute Auto 0.1 K/mm3 (0.0-0.1); Basophils Percent Auto 0.7 % (0.2-1.2); Eosinophils Absolute Auto 0.1 K/mm3 (0-0.3); Hematocrit 44.6 % (37.0-47.0); Hemoglobin 14.3 g/dL (12.0-15.0); Immature Granulocyte Absolute 0.03 K/mm3 (0.00-0.031); Immature Granulocyte Percent A 0.4 % (0-0.5); Lymphocytes Absolute Auto 1.46 K/mm3 (0.9-3.2); Lymphocytes Percent Auto 20.7 % (18.3-44.2); Mean Corpuscular HGB Conc 32.1 g/dl (32-36); Mean Corpuscular Hemoglobin 30.7 pg (26-34); Mean Corpuscular Volume 95.7 fl (80-100); Mean Platelet Volume 11.8 fl (7.4-10.4); Monocytes Absolute Auto 0.8 K/mm3 (0.1-0.6); Neutrophils Absolute Auto 4.6 K/mm3 (1.3-6.7); Neutrophils Percent Auto 65.2 % (45.5-73.1); Platelet Count Result 152 k/mm3 (150-375); Red Blood Count 4.66 M/mm3 (4.2-5.4); Red Cell Distribution Width 13.4 % (11.5-14.5); White Blood Count 7.1 K/mm3 (4.5-10.0)
[2022-10-26 01:54] LABS: Alanine Aminotransferase 29 U/L (6-35); Albumin Level 4.1 g/dL (3.5-5.1); Alkaline Phosphatase 64 U/L (38-126); Anion Gap 7 mmol/L (8-16); Aspartate Amino Transferase 39 U/L (14-36); Bilirubin,Total 0.4 mg/dL (0.2-1.3); Blood Urea Nitrogen 24 mg/dL (7-17); Calcium 9.1 mg/dL (8.4-10.2); Carbon Dioxide 27 mmol/L (22-30); Chloride 105 mmol/L (98-107); Estimated CRCL calculation 59 ml/min; Estimated Glomerular Filt Rate > 60; Glucose 111 mg/dL (65-110); Potassium 3.6 mmol/L (3.4-5.0); Sodium 139 mmol/L (137-145)
== END 2022-10-26 04:30 | disposition home or self-care (01) ==
PROVIDERS: Emergency Provider Physician Assistant; PCP Internal Medicine
DX: I13.0 Hypertensive heart and chronic kidney disease with heart failure and stage 1 through stage 4 chronic kidney disease, or unspecified chronic kidney disease (principal); G44.209 Tension-type headache, unspecified, not intractable; I50.9 Heart failure, unspecified; E11.22 Type 2 diabetes mellitus with diabetic chronic kidney disease; N18.9 Chronic kidney disease, unspecified; F03.90 Unspecified dementia, unspecified severity, without behavioral disturbance, psychotic disturbance, mood disturbance, and anxiety; J82.83 Eosinophilic asthma; F41.9 Anxiety disorder, unspecified; E78.5 Hyperlipidemia, unspecified; E03.9 Hypothyroidism, unspecified; F33.9 Major depressive disorder, recurrent, unspecified; G47.33 Obstructive sleep apnea (adult) (pediatric); Z86.73 Personal history of transient ischemic attack (TIA), and cerebral infarction without residual deficits; Z87.891 Personal history of nicotine dependence; Z79.82 Long term (current) use of aspirin; Z79.51 Long term (current) use of inhaled steroids; Z79.620 Long term (current) use of immunosuppressive biologic
CPT/HCPCS: 36415; 70450; 71045; 80053; 85025; 93005; 94640; 96361; 96374; 96375; 99284; A9270; J0780; J1200; J7030

== ENCOUNTER 2022-11-30 11:54 | Emergency (ER) | payer MEDICARE, OTHER, SELFPAY ==
--- NOTE | ~2022-11-30 | XR_ITS ---
XR chest 2V 11/30/2022 12:23 Indication: Cough and asthma Procedure: 2 view chest Comparison: Comparison to multiple prior studies sequentially, with oldest reviewed study dated 04/03/2021. Findings: Heart size normal. No focal air space disease, pulmonary edema, pleural effusion or suspect ed pneumothorax. There is atherosclerosis and ectasia of the aorta. Impression: 1: No acute cardiopulmonary disease. Reviewed, dictated and finalized at location A. Impression: 1: No acute cardiopulmonary disease.
[2022-11-30 11:56] VITALS: BP 127/62; PULSE 57; RESP 16; TEMP 36.9; O2SAT 96
--- NOTE | 2022-11-30 11:59 | ED.HA ---
HPI - Headache General Chief Complaint: Headache Stated Complaint: migraine Time Seen by Provider: 11/30/22 11:59 History of Present Illness HPI Narrative: Patient is an 82 year old female with history of HTN, LBBB, CKD stage 3, recurrent headaches here with multiple symptoms including headache, cough and fatigue. Patient notes that symptoms began yesterday evening. She has noted some bilateral lower back pain, lower abdominal pain, dysuria and increased urinary frequency. She notes a prior history of UTIs however it has been quite some time since she has required antibiotics for one. She notes headache is located posteriorly and wraps around to her forehead. It is associated with some light sensitivity. She denies numbness or weakness in arms or legs, denies vision changes, denies trauma. Patient takes tylenol BID, last took about 650 mg this morning around 6:30 AM with minimal relief of symptoms. No associated nausea. Son at bedside has also noticed she has been coughing a bit more this morning than usual. She denies any productivity with the cough. Has been using her inhalers at home, including albuterol rescue inhaler and recently was started on trelegy. No fever or chills. No chest pain or shortness of breath. Related Data Home Medications Medication Instructions Recorded Confirmed epinephrine 0.3 mg/0.3 mL 0.3 mg IM ONCE PRN Allergic 10/19/20 11/11/22 injection, auto-injector Reaction vit C 226 mg-vit E 90 mg-copper 1 cap PO DAILY 10/19/20 11/11/22 0.8 mg-zinc oxide-lutein 5 mg capsule (PreserVision Lutein) aspirin 81 mg tablet,delayed 81 mg PO DAILY 04/16/21 11/11/22 release (Jose Low Dose Aspirin) azelastine 205.5 mcg (0.15 %) 2 spray intranasal QAM 11/01/21 11/11/22 nasal spray (Astepro Allergy) calcium carbonate 600 mg calcium 600 mg PO BID 04/02/22 11/11/22 (1,500 mg) tablet (Calcium) donepezil 5 mg tablet 5 mg PO QHS 04/23/22 11/11/22 losartan 50 mg tablet 50 mg PO QAM 06/12/22 11/11/22 acetaminophen 650 mg 650 mg PO QAM 08/28/22 11/11/22 tablet,extended release calcitriol 0.25 mcg capsule 0.25 mcg PO QAM 08/28/22 11/11/22 ergocalciferol (vitamin D2) 1,250 1,250 mcg PO WEEKLY 08/28/22 11/11/22 mcg (50,000 unit) capsule escitalopram oxalate 20 mg tablet 20 mg PO HS 08/28/22 11/11/22 fluticasone propionate 230 2 puff inhalation QAM Dyspnea 08/28/22 11/11/22 mcg-salmeterol 21 mcg/actuation HFA inhaler (Advair HFA) levothyroxine 100 mcg tablet 100 mcg PO QAM 08/28/22 11/11/22 rosuvastatin 10 mg tablet 10 mg PO QAM 08/28/22 11/11/22 terbinafine HCl 250 mg tablet 250 mg PO DAILY 08/28/22 11/11/22 Allergies Allergy/AdvReac Type Severity Reaction Status Date / Time guanfacine [From Tenex] Allergy Intermediate Unknown-PT Verified 11/30/22 12:04 UNABLE TO RECALL propoxyphene Allergy Mild RASH Verified 11/30/22 12:04 adhesive tape Allergy Unknown REDNESS, Verified 11/30/22 12:04 RASH latex Allergy Unknown Rash Verified 11/30/22 12:04 ondansetron Allergy Unknown Unknown-PT Verified 11/30/22 12:04 UNABLE TO RECALL Penicillins Allergy Unknown Rash Verified 11/30/22 12:04 Sulfa (Sulfonamide Allergy Unknown Unknown-PT Verified 11/30/22 12:04 Antibiotics) UNALBE TO RECALL verapamil Allergy Unknown Unknown-PT Verified 11/30/22 12:04 UNALBE TO RECALL citalopram [From Celexa] AdvReac Intermediate Unknown-PT Verified 11/30/22 12:04 UNALBE TO RECALL gabapentin AdvReac Intermediate DAVIS, NAUSEA Verified 11/30/22 12:04 diclofenac AdvReac Unknown Gastrointestinal Verified 11/30/22 12:04 Upset tramadol AdvReac Unknown Gastrointestinal Verified 11/30/22 12:04 Upset Review of Systems Review of Systems: All systems reviewed & are unremarkable except as noted in HPI and below PMFSH Past Medical History Medical History Abscess of groin, left Anxiety Asthma Asthmatic pulmonary eosinophilia Benign ess
--- NOTE | 2022-11-30 12:14 | ECG_ITS ---
Measurements Intervals [place] Rate: 54 P: 21 OR: 206 QRS: -14 QRSD: 144 T: 37 QT: 489 QTc: 466 Interpretive Statements SINUS BRADYCARDIA LEFT BUNDLE BRANCH BLOCK [120+ ms QRS DURATION, 80+ ms Q/S IN V1/V2, 85+ ms R IN I/aVL/V5/V6] ABNORMAL ECG COMPARED TO ECG 10/26/2022 02:06:18 NO SIGNIFICANT CHANGES Electronically Signed On 12-01-2022 8:18:13 CDT by Aristeo Moura M.D.
[2022-11-30] MEDS: ACETAMINOPHEN 325 MG TABLET 650 MG PO (12:28)
[2022-11-30 12:47] LABS: Basophils Absolute Auto 0.1 K/mm3 (0.0-0.1); Basophils Percent Auto 0.7 % (0.2-1.2); Eosinophils Absolute Auto 0.1 K/mm3 (0-0.3); Eosinophils Percent Auto 1.8 % (0-4.4); Hematocrit 45.2 % (37.0-47.0); Hemoglobin 14.3 g/dL (12.0-15.0); Immature Granulocyte Absolute 0.02 K/mm3 (0.00-0.031); Immature Granulocyte Percent A 0.3 % (0-0.5); Lymphocytes Absolute Auto 1.24 K/mm3 (0.9-3.2); Lymphocytes Percent Auto 16.9 % (18.3-44.2); Mean Corpuscular HGB Conc 31.6 g/dl (32-36); Mean Platelet Volume 11.5 fl (7.4-10.4); Monocytes Absolute Auto 0.8 K/mm3 (0.1-0.6); Monocytes Percent Auto 11.2 % (2.6-8.5); Neutrophils Absolute Auto 5.1 K/mm3 (1.3-6.7); Neutrophils Percent Auto 69.1 % (45.5-73.1); Platelet Count Result 148 k/mm3 (150-375); Red Blood Count 4.76 M/mm3 (4.2-5.4); White Blood Count 7.3 K/mm3 (4.5-10.0)
[2022-11-30] MEDS: SODIUM CHLORIDE 0.9% IV 1,000 ML 999 ML IV CONT (12:51)
[2022-11-30 12:54] VITALS: BP 145/76; PULSE 55; RESP 18; O2SAT 96
[2022-11-30 12:58] LABS: Alanine Aminotransferase 31 U/L (6-35); Albumin Level 4.5 g/dL (3.5-5.1); Alkaline Phosphatase 56 U/L (38-126); Anion Gap 6 mmol/L (8-16); Aspartate Amino Transferase 35 U/L (14-36); Bilirubin,Total 0.5 mg/dL (0.2-1.3); Blood Urea Nitrogen 27 mg/dL (7-17); Calcium 9.6 mg/dL (8.4-10.2); Carbon Dioxide 29 mmol/L (22-30); Chloride 104 mmol/L (98-107); Estimated CRCL calculation 51 ml/min; Estimated Glomerular Filt Rate > 60; Glucose 92 mg/dL (65-110); Potassium 4.1 mmol/L (3.4-5.0); Sodium 139 mmol/L (137-145)
[2022-11-30 13:02] LABS: Appearance Urine Clear (Clear); Bilirubin Urine Negative (Negative); Blood Urine Negative (Negative); Color Urine Yellow (Yellow); Glucose Urine UA Negative (Negative); Ketones Urine Negative (Negative); Leukocyte Esterase Ur Negative LEU/UL (Negative); Nitrate Urine Negative (Negative); Protein Urine Negative (Negative); Specific Grav Ur 1.009 (1.001-1.035); Urobilinogen Urine 0.2 mg/dL (<2.0); pH Urine 5.5 (5.0-9.0)
[2022-11-30 13:31] LABS: Influenza A QL RT-PCR Negative (Negative); Influenza B QL RT-PCR Negative (Negative); RSV RNA, RT-PCR Negative (Negative); SARS-CoV-2 RNA PCR Negative (Negative)
[2022-11-30 13:44] LABS: Add Urine Microscopic? NO
[2022-11-30 14:20] VITALS: BP 155/85; PULSE 57; RESP 18; O2SAT 96
== END 2022-11-30 15:00 | disposition home or self-care (01) ==
LOC: ANHED 14:29
PROVIDERS: Emergency Provider Student in an Organized Health Care Education/Training Program; PCP Internal Medicine
DX: R51.9 Headache, unspecified (principal); Z20.822 Contact with and (suspected) exposure to COVID-19; I13.0 Hypertensive heart and chronic kidney disease with heart failure and stage 1 through stage 4 chronic kidney disease, or unspecified chronic kidney disease; E11.22 Type 2 diabetes mellitus with diabetic chronic kidney disease; N18.30 Chronic kidney disease, stage 3 unspecified; I50.9 Heart failure, unspecified; J82.83 Eosinophilic asthma; F03.90 Unspecified dementia, unspecified severity, without behavioral disturbance, psychotic disturbance, mood disturbance, and anxiety; E78.5 Hyperlipidemia, unspecified; G47.33 Obstructive sleep apnea (adult) (pediatric); M47.812 Spondylosis without myelopathy or radiculopathy, cervical region; F33.9 Major depressive disorder, recurrent, unspecified; F41.9 Anxiety disorder, unspecified; Z96.652 Presence of left artificial knee joint; Z86.73 Personal history of transient ischemic attack (TIA), and cerebral infarction without residual deficits; Z86.010 Personal history of colon polyps; Z85.820 Personal history of malignant melanoma of skin; Z86.16 Personal history of COVID-19; Z87.440 Personal history of urinary (tract) infections; Z87.891 Personal history of nicotine dependence; Z90.710 Acquired absence of both cervix and uterus; R00.1 Bradycardia, unspecified; I44.7 Left bundle-branch block, unspecified
CPT/HCPCS: 36415; 71046; 80053; 81003; 85025; 87637; 93005; 96360; 99283; A9270; J7030

== ENCOUNTER 2023-02-05 12:59 | Outpatient (CLI) | payer MEDICARE, OTHER, SELFPAY ==
--- NOTE | ~2023-02-05 | MR_ITS ---
EXAMINATION: MR abdomen wo/w con DATE: 02/05/2023 14:49 INDICATION: Renal mass TECHNIQUE: Magnetic resonance imaging (MRI) of the abdomen was performed without and with 16 mL Multi iris intravenous contrast. Sequences included coronal T2-weighted SS-FSE, coronal and axial FS 2D-F IESTA, axial STIR FSE, axial T2-weighted SS-FSE, axial T2-weighted FS SS-FSE, axial diffusion-weighte d SE, axial dual-echo T1-weighted FSPGR, and axial and coronal T1-weighted LAVA. Postcontrast axial T 1-weighted LAVA images were obtained in a time course. Postcontrast coronal T1-weighted LAVA images w ere obtained. COMPARISON: CT abdomen pelvis dated 08/31/2018 FINDINGS: Heart size is normal. Small pericardial effusion. Mild discoid atelectasis at the left lung base. No pleural effusion. Status post cholecystectomy with mild intrahepatic biliary ductal dilation but more prominent dilation of the common bile duct which measures up to 2.3 cm diameter decreasing to 11 mm in the distal duct without evident obstructing stone at the distal common bile duct. The main pancrea tic duct measures up to 7 mm at its confluence with the common bile duct, tapering to 3 mm in diamete r at the body of the pancreas and 1.5 mm at the tail. Spleen and bilateral adrenal glands are normal. Multiple bilateral simple appearing T2 hyperintense nonenhancing renal cysts, the largest on the lef t measuring 6.2 cm. No abnormally enhancing renal lesions identified. Multiple diverticula are seen i n the coronal images along the sigmoid colon without adjacent from trace stranding to suggest diverti culitis. Visualized portions of bowels are otherwise unremarkable. No pathologically enlarged abdomin al or upper pelvic lymphadenopathy. Moderate to severe thoracolumbar spondylosis. IMPRESSION: 1. Couple bilateral nonenhancing simple appearing renal cysts. No abnormally enhancing brain lesions identified. 2. Mild dilation of the intrahepatic biliary tree and main pancreatic duct and more prominent dilatio n of common bile duct without evident obstructing stone or mass which may relate to prior cholecystec arun. 3. Sigmoid diverticulosis. Reviewed, dictated and finalized at location A. TECHNICIAN IMPRESSION: 1. Couple bilateral nonenhancing simple appearing renal cysts. No abnormally en hancing brain lesions identified. 2. Mild dilation of the intrahepatic biliary tree and main pancreatic duct and more prominent dilation of common bile duct without evident obstructing stone o r mass which may relate to prior cholecystectomy. 3. Sigmoid diverticulosis.
== END 2023-02-05 13:00 | disposition home or self-care (01) ==
PROVIDERS: PCP Internal Medicine; Visit Provider Physician Assistant
DX: N28.89 Other specified disorders of kidney and ureter (principal); K57.30 Diverticulosis of large intestine without perforation or abscess without bleeding
CPT/HCPCS: 74183; A9577

== ENCOUNTER 2023-06-19 21:18 | Emergency (ER) | payer MEDICARE, OTHER, SELFPAY ==
[2023-06-19] VITALS (8 sets, daily range): BP systolic 162–181; BP diastolic 78–82; PULSE 62–69; RESP 17–23; TEMP 36.4; O2SAT 94–96
--- NOTE | ~2023-06-19 | XR_ITS ---
EXAMINATION: XR hand RT min 3V DATE: 06/19/2023 21:42 INDICATION: Right hand pain post fall TECHNIQUE: Posteroanterior, oblique and lateral views of the right hand were obtained. COMPARISON: 03/24/2018 FINDINGS: Spiral versus mildly comminuted oblique fracture of the diaphysis of the right fourth metacarpal with 1 mm ulnar displacement and 3 mm proximal migration. No other fractures identified. There is chronic widening of the scapholunate interval suggestive of scapholunate ligament insufficiency. Severe oste oarthritis at the radiolunate articulation which could be due to secondary scapholunate advanced russ apse (SLAC) wrist. Additional polyarticular osteoarthritis, severe at the first carpal metacarpal randal nts, moderate at the distal radioulnar joint, first interphalangeal and third metacarpophalangeal radnal nts and mild at the midcarpal, triscaphe and many additional metacarpophalangeal and interphalangeal joints. IMPRESSION: 1. Mildly displaced potentially mildly comminuted diaphyseal fracture of the right fourth metacarpal. 2. 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 Reviewed, dictated and finalized at location A. IMPRESSION: 1. Mildly displaced potentially mildly comminuted diaphyseal fracture of the ri t fourth metacarpal. 2. 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
--- NOTE | ~2023-06-19 | CT_ITS ---
EXAMINATION: CT brain wo con DATE: 06/19/2023 22:27 INDICATION: Trauma TECHNIQUE: Computed tomography (CT) of the head was performed without intravenous contrast. Sagittal and coronal reconstructions were performed. The mA was adjusted according to patient size. Iterative reconstruction technique was employed. The dose-length product was 605.33 mGy-cm. COMPARISON: head CT dated 10/26/2022 FINDINGS: High left parietal scalp hematoma. No fracture. No acute intracranial hemorrhage, acute infarction or abnormal extra axial fluid collection. There is mild scattered white matter hypoattenuation consiste nt with chronic small vessel ischemic disease. Symmetric prominence of the sulci and subarachnoid spa antony overlying the bilateral frontal lobes consistent with moderate age-appropriate diffuse cerebral v olume loss. Ventricles are normal and symmetric. No mass/mass effect. Changes of bilateral intraocula r lens replacement. The orbits and mastoid air cells are normal. Mild mucosal thickening the paranasa l sinuses with change of prior bilateral antral window procedures. Thickened sclerotic evangelista to the r ight maxillary sinus consistent with chronic sinusitis. IMPRESSION: 1. No fracture or acute intracranial process. 2. Age-related changes including moderate diffuse volume loss and mild scattered white matter hypoatt enuation consistent with chronic small vessel ischemic disease. Reviewed, dictated and finalized at location A. IMPRESSION: 1. No fracture or acute intracranial process. 2. Age-related changes including moderate diffuse volume loss and mild scattere d white matter hypoattenuation consistent with chronic small vessel ischemic di sease.
--- NOTE | 2023-06-19 22:15 | ED.FALL ---
HPI - Fall General Chief Complaint: Fall Stated Complaint: FALL Time Seen by Provider: 06/19/23 22:04 Source: patient Mode of arrival: EMS Limitations: no limitations History of Present Illness HPI Narrative: 82-year-old female presenting after fall today. Mechanical trip and fall. Tripped over the carpet. History fell on her right hand. Also struck her head on the ground. Has a hematoma over the left parietal region and is having pain over her right hand. Denies any lightheadedness, weakness. Pain is improved at this point. Related Data Home Medications Medication Instructions Recorded Confirmed epinephrine 0.3 mg/0.3 mL 0.3 mg IM ONCE PRN Allergic 10/19/20 11/11/22 injection, auto-injector Reaction vit C 226 mg-vit E 90 mg-copper 1 cap PO DAILY 10/19/20 11/11/22 0.8 mg-zinc oxide-lutein 5 mg capsule (PreserVision Lutein) aspirin 81 mg tablet,delayed 81 mg PO DAILY 04/16/21 11/11/22 release (Jose Low Dose Aspirin) azelastine 205.5 mcg (0.15 %) 2 spray intranasal QA 11/01/21 11/11/22 nasal spray (Astepro Allergy) calcium carbonate (Calcium 600) 600 mg PO BID 04/02/22 11/11/22 donepezil 5 mg tablet 5 mg PO QHS 04/23/22 11/11/22 losartan 50 mg tablet 50 mg PO QA 06/12/22 11/11/22 acetaminophen 650 mg 650 mg PO QAM 08/28/22 11/11/22 tablet,extended release calcitriol 0.25 mcg capsule 0.25 mcg PO QAM 08/28/22 11/11/22 ergocalciferol (vitamin D2) 1,250 1,250 mcg PO WEEKLY 08/28/22 11/11/22 mcg (50,000 unit) capsule escitalopram oxalate 20 mg tablet 20 mg PO HS 08/28/22 11/11/22 fluticasone propionate 230 2 puff inhalation QAM Dyspnea 08/28/22 11/11/22 mcg-salmeterol 21 mcg/actuation HFA inhaler (Advair HFA) levothyroxine 100 mcg tablet 100 mcg PO QAM 08/28/22 11/11/22 rosuvastatin 10 mg tablet 10 mg PO QAM 08/28/22 11/11/22 terbinafine HCl 250 mg tablet 250 mg PO DAILY 08/28/22 11/11/22 Allergies Allergy/AdvReac Type Severity Reaction Status Date / Time guanfacine [From Tenex] Allergy Intermediate Unknown-PT Verified 11/30/22 12:04 UNABLE TO RECALL propoxyphene Allergy Mild RASH Verified 11/30/22 12:04 adhesive tape Allergy Unknown REDNESS, Verified 11/30/22 12:04 RASH latex Allergy Unknown Rash Verified 11/30/22 12:04 ondansetron Allergy Unknown Unknown-PT Verified 11/30/22 12:04 UNABLE TO RECALL Penicillins Allergy Unknown Rash Verified 11/30/22 12:04 Sulfa (Sulfonamide Allergy Unknown Unknown-PT Verified 11/30/22 12:04 Antibiotics) UNALBE TO RECALL verapamil Allergy Unknown Unknown-PT Verified 11/30/22 12:04 UNALBE TO RECALL citalopram [From Celexa] AdvReac Intermediate Unknown-PT Verified 11/30/22 12:04 UNALBE TO RECALL gabapentin AdvReac Intermediate DAVIS, NAUSEA Verified 11/30/22 12:04 diclofenac AdvReac Unknown Gastrointestinal Verified 11/30/22 12:04 Upset tramadol AdvReac Unknown Gastrointestinal Verified 11/30/22 12:04 Upset Review of Systems Review of Systems: All systems reviewed & are unremarkable except as noted in HPI and below PMFSH Past Medical History Medical History Abscess of groin, left Anxiety Asthma Asthmatic pulmonary eosinophilia Benign essential hypertension BMI 28.0-28.9,adult BMI 29.0-29.9,adult BMI 30.0-30.9,adult BMI 31.0-31.9,adult Candidiasis of other urogenital sites Carotid stenosis Cellulitis Cervicalgia CHF (congestive heart failure) EF 65-70%, grade 1 diastolic dysfunction CKD (chronic kidney disease) Cognitive dysfunction Cough CVA (cerebral vascular accident) Dementia Diastolic dysfunction 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
--- NOTE | 2023-06-19 23:16 | PC.NURSE ---
Pt discharged by by BAEL Nicole.
--- NOTE | 2023-07-01 23:45 | PC.NURSE ---
Addendum entered by Alexia Patricia RN 07/03/23 10:05: The order should be for a short arm/ulnar gutter splint to R lower arm. Original Note: VORB by Dr. Chow for splint to right middle finger.
== END 2023-06-19 23:24 | disposition home or self-care (01) ==
PROVIDERS: Emergency Provider Emergency Medicine; PCP Internal Medicine
DX: S62.324A Displaced fracture of shaft of fourth metacarpal bone, right hand, initial encounter for closed fracture (principal); F03.90 Unspecified dementia, unspecified severity, without behavioral disturbance, psychotic disturbance, mood disturbance, and anxiety; J82.83 Eosinophilic asthma; I13.0 Hypertensive heart and chronic kidney disease with heart failure and stage 1 through stage 4 chronic kidney disease, or unspecified chronic kidney disease; E11.22 Type 2 diabetes mellitus with diabetic chronic kidney disease; N18.9 Chronic kidney disease, unspecified; I50.9 Heart failure, unspecified; E78.5 Hyperlipidemia, unspecified; E03.9 Hypothyroidism, unspecified; G47.33 Obstructive sleep apnea (adult) (pediatric); M47.812 Spondylosis without myelopathy or radiculopathy, cervical region; F41.9 Anxiety disorder, unspecified; F33.9 Major depressive disorder, recurrent, unspecified; Z96.652 Presence of left artificial knee joint; Z86.16 Personal history of COVID-19; Z85.840 Personal history of malignant neoplasm of eye; Z86.73 Personal history of transient ischemic attack (TIA), and cerebral infarction without residual deficits; Z86.010 Personal history of colon polyps; Z87.440 Personal history of urinary (tract) infections; Z87.891 Personal history of nicotine dependence; Z90.49 Acquired absence of other specified parts of digestive tract; Z90.710 Acquired absence of both cervix and uterus; Z79.899 Other long term (current) drug therapy; Z79.82 Long term (current) use of aspirin; W18.09XA Striking against other object with subsequent fall, initial encounter
CPT/HCPCS: 29125; 70450; 73130; 99284

== ENCOUNTER 2023-07-15 16:27 | Emergency (ER) | payer MEDICARE, OTHER, SELFPAY ==
--- NOTE | 2023-07-15 16:36 | ED.EXTPRO ---
HPI - Extremity Problem General Chief complaint: Extremity Injury, Upper Stated complaint: cast came off right arm today Time Seen by Provider: 07/15/23 16:38 Source: patient, RN notes reviewed and old records reviewed Mode of arrival: ambulatory Limitations: no limitations History of Present Illness HPI Narrative: 83-year-old female presents to the [facility] with concerns that her cast just fell off just prior to arrival. States they tried calling ortho but his office was already closed. Patient sensation intact in all 5 fingers. Capillary refill under 2 seconds. Full range of motion. Discussed with patient and family most likely her swelling went down the nail the cast is loose. Patient denies any new injury, was able to place a cast right back on. Related Data Home Medications Medication Instructions Recorded Confirmed epinephrine 0.3 mg/0.3 mL 0.3 mg IM ONCE PRN Allergic 10/19/20 07/15/23 injection, auto-injector Reaction vit C 226 mg-vit E 90 mg-copper 1 cap PO DAILY 10/19/20 07/15/23 0.8 mg-zinc oxide-lutein 5 mg capsule (PreserVision Lutein) aspirin 81 mg tablet,delayed 81 mg PO DAILY 04/16/21 07/15/23 release (Jose Low Dose Aspirin) azelastine 205.5 mcg (0.15 %) 2 spray intranasal QAM 11/01/21 07/15/23 nasal spray (Astepro Allergy) calcium carbonate (Calcium 600) 600 mg PO BID 04/02/22 07/15/23 donepezil 5 mg tablet 5 mg PO QHS 04/23/22 07/15/23 losartan 50 mg tablet 50 mg PO QAM 06/12/22 07/15/23 acetaminophen 650 mg 650 mg PO QAM 08/28/22 07/15/23 tablet,extended release calcitriol 0.25 mcg capsule 0.25 mcg PO QAM 08/28/22 07/15/23 ergocalciferol (vitamin D2) 1,250 1,250 mcg PO WEEKLY 08/28/22 07/15/23 mcg (50,000 unit) capsule escitalopram oxalate 20 mg tablet 20 mg PO HS 08/28/22 07/15/23 fluticasone propionate 230 2 puff inhalation QAM Dyspnea 08/28/22 07/15/23 mcg-salmeterol 21 mcg/actuation HFA inhaler (Advair HFA) levothyroxine 100 mcg tablet 100 mcg PO QAM 08/28/22 07/15/23 rosuvastatin 10 mg tablet 10 mg PO QAM 08/28/22 07/15/23 terbinafine HCl 250 mg tablet 250 mg PO DAILY 08/28/22 07/15/23 Allergies Allergy/AdvReac Type Severity Reaction Status Date / Time guanfacine [From Tenex] Allergy Intermediate Unknown-PT Verified 07/15/23 16:31 UNABLE TO RECALL propoxyphene Allergy Mild RASH Verified 07/15/23 16:31 adhesive tape Allergy Unknown REDNESS, Verified 07/15/23 16:31 RASH latex Allergy Unknown Rash Verified 07/15/23 16:31 ondansetron Allergy Unknown Unknown-PT Verified 07/15/23 16:31 UNABLE TO RECALL Penicillins Allergy Unknown Rash Verified 07/15/23 16:31 Sulfa (Sulfonamide Allergy Unknown Unknown-PT Verified 07/15/23 16:31 Antibiotics) UNALBE TO RECALL verapamil Allergy Unknown Unknown-PT Verified 07/15/23 16:31 UNALBE TO RECALL citalopram [From Celexa] AdvReac Intermediate Unknown-PT Verified 07/15/23 16:31 UNALBE TO RECALL gabapentin AdvReac Intermediate DAVIS, NAUSEA Verified 07/15/23 16:31 diclofenac AdvReac Unknown Gastrointestinal Verified 07/15/23 16:31 Upset tramadol AdvReac Unknown Gastrointestinal Verified 07/15/23 16:31 Upset Review of Systems Review of Systems: All systems reviewed & are unremarkable except as noted in HPI and below Constitutional: Constitutional: Reports no additional constitutional complaints Eyes: Eyes: Reports no additional eye complaints ENT: Reports system reviewed and no additional complaints, except as documented Cardiovascular: Cardiovascular: Reports no additional cardiovascular complaints, Denies chest pain and Denies dyspnea Respiratory: Respiratory: Reports no additional respiratory complaints, Denies chest congestion, Denies cough and Denies dyspnea Gastrointestinal: Gastrointestinal: Reports no additional gastrointestinal complaints, Denies abdominal pain, Denies nausea and Denies vomiting Musculoskeletal: Musculoskeletal: Reports no additional musculoskele
[2023-07-15 16:39] VITALS: BP 122/72; PULSE 70; RESP 18; TEMP 36.2; O2SAT 97
== END 2023-07-15 16:50 | disposition home or self-care (01) ==
PROVIDERS: Emergency Provider Nurse Practitioner; PCP Internal Medicine
DX: Z46.89 Encounter for fitting and adjustment of other specified devices (principal); Z87.891 Personal history of nicotine dependence; F41.9 Anxiety disorder, unspecified; J45.909 Unspecified asthma, uncomplicated; I50.9 Heart failure, unspecified; Z86.73 Personal history of transient ischemic attack (TIA), and cerebral infarction without residual deficits; F03.90 Unspecified dementia, unspecified severity, without behavioral disturbance, psychotic disturbance, mood disturbance, and anxiety; E11.22 Type 2 diabetes mellitus with diabetic chronic kidney disease; N18.9 Chronic kidney disease, unspecified; E78.5 Hyperlipidemia, unspecified; E03.9 Hypothyroidism, unspecified; F33.8 Other recurrent depressive disorders; G47.33 Obstructive sleep apnea (adult) (pediatric); Z85.820 Personal history of malignant melanoma of skin; Z96.651 Presence of right artificial knee joint; Z79.82 Long term (current) use of aspirin
CPT/HCPCS: 99211; G0463

== ENCOUNTER 2023-07-16 13:34 | Outpatient (CLI) | payer MEDICARE, OTHER, SELFPAY ==
--- NOTE | ~2023-07-16 | XR_ITS ---
XR hand RT min 3V Ordering provider: Ty Fierro MD History: . S62.329A - Displaced fracture of shaft. 4TH. FOLLOW UP . Comparison: June 19, 2023 FINDINGS: BONES: Oblique fracture of the midshaft of the fourth. Metacarpal bone possibility of a fracture in t he distal ulna cannot be excluded. JOINT SPACES: Widening of the distance between the lunate and scaphoid is again demonstrated. Osteoar thritic changes of the first carpometacarpal joint is noted. Osteoarthritic changes of the radiocarpa l joint is also seen. SOFT TISSUES: Normal. IMPRESSION: Healing fracture of the fourth metacarpal bone. Reviewed, dictated and finalized at location A.
== END 2023-07-16 13:35 | disposition home or self-care (01) ==
PROVIDERS: PCP Internal Medicine; Visit Provider Orthopaedic Surgery
DX: S62.324D Displaced fracture of shaft of fourth metacarpal bone, right hand, subsequent encounter for fracture with routine healing (principal); X58.XXXD Exposure to other specified factors, subsequent encounter
CPT/HCPCS: 73130

== ENCOUNTER 2023-08-16 21:30 | Emergency (ER) | payer MEDICARE, OTHER, SELFPAY ==
[2023-08-16 21:34] VITALS: BP 183/89; PULSE 57; RESP 18; TEMP 36.4; O2SAT 99
--- NOTE | 2023-08-16 21:41 | ECG_ITS ---
Test Date: 2023-08-16 21:43:11 Measurements Intervals Icard Rate: 52 P: 51 GA: 209 QRS: -20 QRSD: 157 T: 74 QT: 495 QTc: 462 Interpretive Statements SINUS BRADYCARDIA WITH FIRST DEGREE AV BLOCK LEFT BUNDLE BRANCH BLOCK BASELINE ARTIFACT- I, II, AVR, AVL, AVF ABNORMAL ECG No previous ECG available for comparison Electronically Signed On 08-17-2023 07:44:33 CDT by Chuy Hernandez D.O.
[2023-08-16 21:51] LABS: Basophils Absolute Auto 0.1 K/mm3 (0.0-0.1); Basophils Percent Auto 0.7 % (0.2-1.2); Eosinophils Absolute Auto 0.3 K/mm3 (0-0.3); Eosinophils Percent Auto 4.1 % (0-4.4); Hematocrit 43.5 % (37.0-47.0); Hemoglobin 14.2 g/dL (12.0-15.0); Immature Granulocyte Absolute 0.01 K/mm3 (0.00-0.031); Immature Granulocyte Percent A 0.1 % (0-0.5); Mean Corpuscular HGB Conc 32.6 g/dl (32-36); Mean Corpuscular Hemoglobin 31.5 pg (26-34); Mean Corpuscular Volume 96.5 fl (80-100); Mean Platelet Volume 11.7 fl (7.4-10.4); Monocytes Absolute Auto 0.9 K/mm3 (0.1-0.6); Monocytes Percent Auto 13.6 % (2.6-8.5); Neutrophils Absolute Auto 4.1 K/mm3 (1.3-6.7); Neutrophils Percent Auto 59.5 % (45.5-73.1); Platelet Count Result 147 k/mm3 (150-375); Red Blood Count 4.51 M/mm3 (4.2-5.4); Red Cell Distribution Width 13.9 % (11.5-14.5); White Blood Count 6.8 K/mm3 (4.5-10.0)
[2023-08-16 22:00] VITALS: BP 149/97; PULSE 54; RESP 20; O2SAT 95
[2023-08-16 22:01] LABS: Alanine Aminotransferase 22 U/L (6-35); Albumin Level 4.7 g/dL (3.5-5.1); Alkaline Phosphatase 68 U/L (38-126); Anion Gap 10 mmol/L (4-12); Aspartate Amino Transferase 32 U/L (14-36); Bilirubin,Total 0.6 mg/dL (0.2-1.3); Blood Urea Nitrogen 28 mg/dL (7-17); Calcium 9.5 mg/dL (8.4-10.2); Carbon Dioxide 28 mmol/L (22-30); Chloride 105 mmol/L (98-107); Estimated CRCL calculation 44 ml/min; Estimated Glomerular Filt Rate 53; Glucose 105 mg/dL (65-110); Potassium 3.4 mmol/L (3.4-5.0); Sodium 143 mmol/L (137-145)
--- NOTE | 2023-08-16 22:12 | ED.RECABL ---
HPI - Recheck/Abnormal Lab/Rx General Chief Complaint: Recheck/Abnormal Lab/Rx Stated Complaint: HTN Time Seen by Provider: 08/16/23 22:03 History of Present Illness HPI narrative: Patient with history of chronic hypertension on Coreg and felodipine presents here due to concerned that her blood pressure was high, so she took extra dose of her Coreg. Denies any symptoms Related Data Home Medications Medication Instructions Recorded Confirmed epinephrine 0.3 mg/0.3 mL 0.3 mg IM ONCE PRN Allergic 10/19/20 08/11/23 injection, auto-injector Reaction vit C 226 mg-vit E 90 mg-copper 1 cap PO DAILY 10/19/20 08/11/23 0.8 mg-zinc oxide-lutein 5 mg capsule (PreserVision Lutein) aspirin 81 mg tablet,delayed 81 mg PO DAILY 04/16/21 08/11/23 release (Jose Low Dose Aspirin) azelastine 205.5 mcg (0.15 %) 2 spray intranasal QAM 11/01/21 08/11/23 nasal spray (Astepro Allergy) calcium carbonate (Calcium 600) 600 mg PO BID 04/02/22 08/11/23 donepezil 5 mg tablet 5 mg PO QHS 04/23/22 08/11/23 losartan 50 mg tablet 50 mg PO QAM 06/12/22 08/11/23 acetaminophen 650 mg 650 mg PO QAM 08/28/22 08/11/23 tablet,extended release calcitriol 0.25 mcg capsule 0.25 mcg PO QAM 08/28/22 08/11/23 ergocalciferol (vitamin D2) 1,250 1,250 mcg PO WEEKLY 08/28/22 08/11/23 mcg (50,000 unit) capsule escitalopram oxalate 20 mg tablet 20 mg PO HS 08/28/22 08/11/23 fluticasone propionate 230 2 puff inhalation QAM Dyspnea 08/28/22 08/11/23 mcg-salmeterol 21 mcg/actuation HFA inhaler (Advair HFA) levothyroxine 100 mcg tablet 100 mcg PO QAM 08/28/22 08/11/23 rosuvastatin 10 mg tablet 10 mg PO QAM 08/28/22 08/11/23 terbinafine HCl 250 mg tablet 250 mg PO DAILY 08/28/22 08/11/23 Allergies Allergy/AdvReac Type Severity Reaction Status Date / Time guanfacine [From Tenex] Allergy Intermediate Unknown-PT Verified 08/11/23 08:30 UNABLE TO RECALL propoxyphene Allergy Mild RASH Verified 08/11/23 08:30 adhesive tape Allergy Unknown REDNESS, Verified 08/11/23 08:30 RASH latex Allergy Unknown Rash Verified 08/11/23 08:30 ondansetron Allergy Unknown Unknown-PT Verified 08/11/23 08:30 UNABLE TO RECALL Penicillins Allergy Unknown Rash Verified 08/11/23 08:30 Sulfa (Sulfonamide Allergy Unknown Unknown-PT Verified 08/11/23 08:30 Antibiotics) UNALBE TO RECALL verapamil Allergy Unknown Unknown-PT Verified 08/11/23 08:30 UNALBE TO RECALL citalopram [From Celexa] AdvReac Intermediate Unknown-PT Verified 08/11/23 08:30 UNALBE TO RECALL gabapentin AdvReac Intermediate DAVIS, NAUSEA Verified 08/11/23 08:30 diclofenac AdvReac Unknown Gastrointestinal Verified 08/11/23 08:30 Upset tramadol AdvReac Unknown Gastrointestinal Verified 08/11/23 08:30 Upset Review of Systems Review of Systems: All systems reviewed & are unremarkable except as noted in HPI and below PMFSH Past Medical History Medical History Abscess of groin, left Anxiety Asthma Asthmatic pulmonary eosinophilia Benign essential hypertension BMI 28.0-28.9,adult BMI 29.0-29.9,adult BMI 30.0-30.9,adult BMI 31.0-31.9,adult Candidiasis of other urogenital sites Carotid stenosis Cellulitis Cervicalgia CHF (congestive heart failure) EF 65-70%, grade 1 diastolic dysfunction CKD (chronic kidney disease) Cognitive dysfunction Cough CVA (cerebral vascular accident) Dementia Diastolic dysfunction 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 Eosinophilic asthma Fatigue Follow up Hearing loss Hunner's ulcer Hx of colonic polyps Hyperlipidemia Hypersomnolence Hypothyroidism (acquired) Insomnia I
[2023-08-16 22:19] VITALS: BP 139/77; PULSE 55; RESP 18; O2SAT 95
== END 2023-08-16 22:26 ==
PROVIDERS: Emergency Provider Emergency Medicine; PCP Internal Medicine
DX: I13.0 Hypertensive heart and chronic kidney disease with heart failure and stage 1 through stage 4 chronic kidney disease, or unspecified chronic kidney disease (principal); I50.9 Heart failure, unspecified; E11.22 Type 2 diabetes mellitus with diabetic chronic kidney disease; N18.9 Chronic kidney disease, unspecified; F03.90 Unspecified dementia, unspecified severity, without behavioral disturbance, psychotic disturbance, mood disturbance, and anxiety; I65.29 Occlusion and stenosis of unspecified carotid artery; J82.83 Eosinophilic asthma; J45.901 Unspecified asthma with (acute) exacerbation; G47.33 Obstructive sleep apnea (adult) (pediatric); M47.812 Spondylosis without myelopathy or radiculopathy, cervical region; F41.9 Anxiety disorder, unspecified; F33.9 Major depressive disorder, recurrent, unspecified; Z96.652 Presence of left artificial knee joint; Z86.16 Personal history of COVID-19; Z87.440 Personal history of urinary (tract) infections; Z85.820 Personal history of malignant melanoma of skin; Z86.010 Personal history of colon polyps; Z87.891 Personal history of nicotine dependence; Z90.49 Acquired absence of other specified parts of digestive tract; Z90.710 Acquired absence of both cervix and uterus; Z79.82 Long term (current) use of aspirin; Z79.899 Other long term (current) drug therapy
CPT/HCPCS: 36415; 80053; 85025; 93005; 99283

== ENCOUNTER 2023-08-25 19:16 | Emergency (ER) | payer MEDICARE, OTHER, SELFPAY ==
--- NOTE | ~2023-08-25 | CT_ITS ---
Non-contrast Head CT History: Headache COMPARISON: 06/19/2023 Technique: Axial non-contrast imaging of the brain was performed. Dose reduction technique was used on this scan by utilizing automated exposure control and iterative reconstruction technique. The dose -length product (DLP) was 605.33 mGy-cm. Findings: There is no evidence of intracranial hemorrhage, mass lesion, or acute infarct. Brain par enchyma appears normal. The ventricles and subarachnoid spaces are normal in size. The calvarium ap pears normal. The visualized paranasal sinuses and mastoid air cells are clear. Impression: No significant abnormality seen. Reviewed, dictated and finalized at location . Impression: No significant abnormality seen.
--- NOTE | ~2023-08-25 | XR_ITS ---
Portable chest x-ray Comparison: 11/30/2022 Clinical History: Cough Findings: Lungs are clear, without focal consolidation or pleural effusion. Stable small calcified r ight hilar lymph nodes. Cardiomediastinal silhouette is stable. Bones and soft tissues are unremarka ble. Impression: Clear lungs. Reviewed, dictated and finalized at location . Impression: Clear lungs.
[2023-08-25 19:20] VITALS: BP 150/70; PULSE 64; RESP 15; TEMP 37.3; O2SAT 96
[2023-08-25 19:51] LABS: Basophils Percent Auto 0.6 % (0.2-1.2); Eosinophils Absolute Auto 0.1 K/mm3 (0-0.3); Eosinophils Percent Auto 1.5 % (0-4.4); Hemoglobin 13.5 g/dL (12.0-15.0); Immature Granulocyte Absolute 0.02 K/mm3 (0.00-0.031); Immature Granulocyte Percent A 0.3 % (0-0.5); Lymphocytes Absolute Auto 0.89 K/mm3 (0.9-3.2); Lymphocytes Percent Auto 13.7 % (18.3-44.2); Mean Corpuscular HGB Conc 32.9 g/dl (32-36); Mean Corpuscular Hemoglobin 31.5 pg (26-34); Mean Corpuscular Volume 95.8 fl (80-100); Monocytes Absolute Auto 1.1 K/mm3 (0.1-0.6); Monocytes Percent Auto 16.2 % (2.6-8.5); Neutrophils Absolute Auto 4.4 K/mm3 (1.3-6.7); Neutrophils Percent Auto 67.7 % (45.5-73.1); Platelet Count Result 118 k/mm3 (150-375); Red Blood Count 4.28 M/mm3 (4.2-5.4); Red Cell Distribution Width 13.9 % (11.5-14.5); White Blood Count 6.5 K/mm3 (4.5-10.0)
[2023-08-25 20:05] LABS: Alanine Aminotransferase 20 U/L (6-35); Albumin Level 4.4 g/dL (3.5-5.1); Alkaline Phosphatase 73 U/L (38-126); Anion Gap 10 mmol/L (4-12); Aspartate Amino Transferase 32 U/L (14-36); Bilirubin,Total 0.7 mg/dL (0.2-1.3); Blood Urea Nitrogen 27 mg/dL (7-17); Calcium 9.3 mg/dL (8.4-10.2); Carbon Dioxide 25 mmol/L (22-30); Chloride 102 mmol/L (98-107); Estimated CRCL calculation 41 ml/min; Estimated Glomerular Filt Rate 47; Glucose 97 mg/dL (65-110); Potassium 4.2 mmol/L (3.4-5.0); Sodium 137 mmol/L (137-145)
--- NOTE | 2023-08-26 01:22 | ED.GENADULT ---
HPI - General Adult General Chief complaint: Environmental Exposure Stated complaint: Weakness Time Seen by Provider: 08/26/23 00:02 History of Present Illness HPI narrative: Patient is a 83-year-old female who presents emergency department with chief complaint of acting different this evening. The patient reports she has chronic sinusitis saddle bit of a cough had a eye exam and then the family noticed that she was extremely hot and had the room set between 85 and 95? the patient reports she does feels weak and a little bit of a headache Related Data Home Medications Medication Instructions Recorded Confirmed epinephrine 0.3 mg/0.3 mL 0.3 mg IM ONCE PRN Allergic 10/19/20 08/11/23 injection, auto-injector Reaction vit C 226 mg-vit E 90 mg-copper 1 cap PO DAILY 10/19/20 08/11/23 0.8 mg-zinc oxide-lutein 5 mg capsule (PreserVision Lutein) aspirin 81 mg tablet,delayed 81 mg PO DAILY 04/16/21 08/11/23 release (Jose Low Dose Aspirin) azelastine 205.5 mcg (0.15 %) 2 spray intranasal QAM 11/01/21 08/11/23 nasal spray (Astepro Allergy) calcium carbonate (Calcium 600) 600 mg PO BID 04/02/22 08/11/23 donepezil 5 mg tablet 5 mg PO QHS 04/23/22 08/11/23 losartan 50 mg tablet 50 mg PO QAM 06/12/22 08/11/23 acetaminophen 650 mg 650 mg PO QAM 08/28/22 08/11/23 tablet,extended release calcitriol 0.25 mcg capsule 0.25 mcg PO QAM 08/28/22 08/11/23 ergocalciferol (vitamin D2) 1,250 1,250 mcg PO WEEKLY 08/28/22 08/11/23 mcg (50,000 unit) capsule escitalopram oxalate 20 mg tablet 20 mg PO HS 08/28/22 08/11/23 fluticasone propionate 230 2 puff inhalation QAM Dyspnea 08/28/22 08/11/23 mcg-salmeterol 21 mcg/actuation HFA inhaler (Advair HFA) levothyroxine 100 mcg tablet 100 mcg PO QAM 08/28/22 08/11/23 rosuvastatin 10 mg tablet 10 mg PO QAM 08/28/22 08/11/23 terbinafine HCl 250 mg tablet 250 mg PO DAILY 08/28/22 08/11/23 Allergies Allergy/AdvReac Type Severity Reaction Status Date / Time guanfacine [From Tenex] Allergy Intermediate Unknown-PT Verified 08/25/23 19:18 UNABLE TO RECALL propoxyphene Allergy Mild RASH Verified 08/25/23 19:18 adhesive tape Allergy Unknown REDNESS, Verified 08/25/23 19:18 RASH latex Allergy Unknown Rash Verified 08/25/23 19:18 ondansetron Allergy Unknown Unknown-PT Verified 08/25/23 19:18 UNABLE TO RECALL Penicillins Allergy Unknown Rash Verified 08/25/23 19:18 Sulfa (Sulfonamide Allergy Unknown Unknown-PT Verified 08/25/23 19:18 Antibiotics) UNALBE TO RECALL verapamil Allergy Unknown Unknown-PT Verified 08/25/23 19:18 UNALBE TO RECALL citalopram [From Celexa] AdvReac Intermediate Unknown-PT Verified 08/25/23 19:18 UNALBE TO RECALL gabapentin AdvReac Intermediate DAVIS, NAUSEA Verified 08/25/23 19:18 diclofenac AdvReac Unknown Gastrointestinal Verified 08/11/23 08:30 Upset tramadol AdvReac Unknown Gastrointestinal Verified 08/11/23 08:30 Upset Review of Systems Review of Systems: A 10 system review of systems was completed on the patient and is negative except for what is stated in the HPI. Nursing and ancillary documentation was reviewed. [facility] Past Medical History Medical History Abscess of groin, left Anxiety Asthma Asthmatic pulmonary eosinophilia Benign essential hypertension BMI 28.0-28.9,adult BMI 29.0-29.9,adult BMI 30.0-30.9,adult BMI 31.0-31.9,adult Candidiasis of other urogenital sites Carotid stenosis Cellulitis Cervicalgia CHF (congestive heart failure) EF 65-70%, grade 1 diastolic dysfunction CKD (chronic kidney disease) Cognitive dysfunction Cough CVA (cerebral vascular accident) Dementia Diastolic dysfunction DJD (degenerative joint disease) DJD (degenerative joint disease) of cervical spine DM type 2 (diabetes mellitus, type 2) Encounter for Medicare annual wellness exam Encounter for routine adult health examination with abnormal
[2023-08-26 01:38] VITALS: BP 162/78; PULSE 60; RESP 17; O2SAT 95
[2023-08-26] MEDS: SODIUM CHLORIDE 0.9% IV 1,000 ML 999 ML IV CONT (01:38)
[2023-08-26 02:21] LABS: Appearance Urine Clear (Clear); Bacteria Urine 4+ /hpf; Bilirubin Urine Negative (Negative); Blood Urine Negative (Negative); Color Urine Yellow (Yellow); Glucose Urine UA Negative (Negative); Ketones Urine Negative (Negative); Leukocyte Esterase Ur 2+ LEU/UL (Negative); Nitrate Urine Positive (Negative); Non Pathogenic Casts 0-2; Protein Urine Trace mg/dL (Negative); RBC Urine 0-2 /hpf (0-2); Specific Grav Ur 1.015 (1.001-1.035); Squamous Epithelial Cell Urine None Seen /hpf (Few); WBC Urine 51-100 /hpf (0-3)
[2023-08-26 02:27] LABS: Add Urine Microscopic? YES
[2023-08-26 04:00] VITALS: BP 143/70; PULSE 60; RESP 17; O2SAT 97
== END 2023-08-26 04:18 ==
PROVIDERS: Student in an Organized Health Care Education/Training Program; Emergency Provider Emergency Medicine; PCP Internal Medicine
DX: N39.0 Urinary tract infection, site not specified (principal); I50.9 Heart failure, unspecified; I13.0 Hypertensive heart and chronic kidney disease with heart failure and stage 1 through stage 4 chronic kidney disease, or unspecified chronic kidney disease; E11.22 Type 2 diabetes mellitus with diabetic chronic kidney disease; N18.9 Chronic kidney disease, unspecified; F03.90 Unspecified dementia, unspecified severity, without behavioral disturbance, psychotic disturbance, mood disturbance, and anxiety; J82.83 Eosinophilic asthma; J32.0 Chronic maxillary sinusitis; E78.5 Hyperlipidemia, unspecified; E03.9 Hypothyroidism, unspecified; G47.33 Obstructive sleep apnea (adult) (pediatric); M47.812 Spondylosis without myelopathy or radiculopathy, cervical region; F33.9 Major depressive disorder, recurrent, unspecified; F41.9 Anxiety disorder, unspecified; Z96.652 Presence of left artificial knee joint; Z86.73 Personal history of transient ischemic attack (TIA), and cerebral infarction without residual deficits; Z86.16 Personal history of COVID-19; Z87.891 Personal history of nicotine dependence; Z86.010 Personal history of colon polyps; Z90.49 Acquired absence of other specified parts of digestive tract; Z90.710 Acquired absence of both cervix and uterus; Z79.899 Other long term (current) drug therapy; Z79.82 Long term (current) use of aspirin
CPT/HCPCS: 36415; 70450; 71045; 80053; 81001; 85025; 87077; 87086; 87186; 96361; 96365; 99284; J0696; J7030

== ENCOUNTER 2024-04-03 10:54 | Emergency (ER) | payer MEDICARE, OTHER, SELFPAY ==
--- NOTE | ~2024-04-03 | CT_ITS ---
EXAMINATION: CT brain wo con DATE: 04/03/2024 14:46 INDICATION: Headache. TECHNIQUE: Computed tomography (CT) of the head was performed without intravenous contrast. The mA wa s adjusted according to patient size. Iterative reconstruction technique was employed. The dose-lengt h product was 605.33 mGy-cm. COMPARISON: Head CT 08/26/2023 FINDINGS: There is no intracranial hemorrhage, acute infarction, or abnormal intracranial mass lesion . The ventricles are normal in size. There are likely changes of ocular lens replacement surgeries. T here is mild mucosal thickening in the ethmoid sinuses. The mastoid air cells are normal. IMPRESSION: 1. Normal aging brain. Reviewed, dictated and finalized at location A. LATORY SPECIALIST IMPRESSION: 1. Normal aging brain.
--- NOTE | ~2024-04-03 | CT_ITS ---
EXAMINATION: CT cervical spine wo con DATE: 04/03/2024 14:46 INDICATION: Neck pain. TECHNIQUE: Computed tomography (CT) of the cervical spine was performed without intravenous contrast. Automated exposure control and iterative reconstruction technique were employed. The dose-length pro duct was 308.77 mGy-cm. COMPARISON: CT cervical spine 12/26/2021 FINDINGS: There is 2 mm anterolisthesis of C3 on C4, C4 on C5, and C6 on C7. Vertebral body heights a re normal. There are changes of anterior fusion procedure at C5-C6 with healed interbody bone graft a nd anterior plate and screws. There is moderately decreased disc height at C6-C7 and C7-T1. The follo wing disc levels are specifically discussed: C2-C3: There is no uncovertebral joint osteoarthritis. There is severe bilateral facet joint osteoart hritis. There is mild bilateral neural foraminal stenosis. There is no central canal stenosis. C3-C4: There is moderate bilateral uncovertebral joint osteoarthritis. There is severe bilateral face t joint osteoarthritis. There is moderate bilateral neural foraminal stenosis. There is mild central canal stenosis. C4-C5: There is mild bilateral uncovertebral joint osteoarthritis. There is severe bilateral facet german int osteoarthritis. There is moderate bilateral neural foraminal stenosis. There is no central canal stenosis. C5-C6: There is moderate bilateral uncovertebral joint hypertrophy. There is no facet joint hypertrop hy. There is mild bilateral neural foraminal stenosis. There is no central canal stenosis. C6-C7: There is mild right and severe left uncovertebral joint osteoarthritis. There is severe bilate ral facet joint osteoarthritis. There is mild bilateral neural foraminal stenosis. There is mild cent ral canal stenosis. C7-T1: There is severe right and mild left uncovertebral joint osteoarthritis. There is severe bilate ral facet joint osteoarthritis. There is mild bilateral neural foraminal stenosis. There is no centra l canal stenosis. IMPRESSION: 1. Moderate cervical spondylosis. 2. Anterior fusion procedure at C5-C6. Reviewed, dictated and finalized at location A. MOBILE PARKER
--- OUTSIDE RECORDS SUMMARY | 2024-04-03 10:58 | XMS_ITS | Encounter Summary ---
Author Organization [facility] Address [address] [place] [address] Phone Care Team Providers Care Hand Cell Tuber Name Role Phone Ezio Vance MD Primary Care Provider Ezio Vance MD Primary Care Provider [phone] Ezio Vance MD Unavailable [phone] Barbara Ho MD Unavailable [phone] Breonna Robin MD Unavailable [phone] Unknown, Notinfile Primary Care Provider Unavail able Sky Jones MD Primary Care Provider [phone] Cornelius nSider MD Primary Care Provider [phone] Femi Blas MD Primary Care Provider [phone] Cornelius Snider MD Primary Care Provider [phone] Cornelius Snider MD Primary Care Provider [phone] Encounter Details Date Type Department Care Team (Late st Contact Info) Description 04/28/2017 Orders Only [facility] ProviderBlack MD [address] [place] [address] Social History Tobacco Use Types Packs/Day Years Used Date Smoking Tobacco: Former Comments Unknown Sex and Gender Information Value Date Recorded Sex Assigned at Not on file Legal Sex Female 2:36 AM SPINNER BOX Gender Identity Female 02/23/2020 1:36 PM SPINNER BOX Sexual Orientation Straight 02/23/2020 1: 36 PM [facility]OX documented as of this encounter Plan of Treatment Not on file documented as of this encounter Procedures Procedure Name Priority Date/Time Associated Diagnosis Comments DISCHARGE LABORATORY CUMULATIVE REPORT 04/28/2017 12:00 AM CDT documented in this encounter Results * DISCHARGE LABORATORY CUMULATIVE REPORT (04/28/2017 12:00 AM CDT) Narrative 04/28/2017 12:00 AM CDT Ordered by an unspecified provider. Historical Provider LAB BLOOD ORDERABLES Alida l Result documented in this encounter Visit Diagnoses Not on filedocumented in this encounter Additional Health Concerns Infection Onset Date Last Indicated Resolved Time COVID: Suspected 02/20/2021 02/20/2021 02/20/2021 8:50 AM [facility] COVID19 02/20/2021 02/20/2021 03/02/2021 3:05 AM SPIN[facility]OX COVID: Recovered Comment:Added based on recent COVID infection. 03/02/2021 03/23/2021 2021 3:05 AM C DT documented as of this encounter Care Teams Hand Cell Tuber Relationship Specialty Start Date End Date Ezio Vance MD [address] [address] PCP - General 06/10/16 07/09/18 Ezio Vance MD [address] [address] PCP - General 07/10/18 11/15/18 Unknown, Notinfile PCP - General 11/16/18 11/25/18 Sky Jones MD [address] [place] [address] PCP - General Family Medicine 11/26/18 08/04/19 Cornelius Snider MD [address] [place] [address] PCP - General Internal Medicine 08/05/19 10/25/20 Femi Blas MD [address] [place] [address] PCP - General Internal Medicine 10/26/20 05/07/22 Cornelius Snider MD [address] [place] [address] PCP - General Internal Medicine 05/08/22 05/08/22 Cornelius Snider MD [address] [place] [address] PCP - General Internal Medicine 05/09/22 Ezio Vance MD [address] [address] 07/10/18 11/15/18 Barbara Ho MD [address] [facility] [address] [place] [address] Surgeon Ophthalmology 07/31/17 [place] [address] [facility] [address] [place] [address] Consulting Physician Endocrinology 11/16/18 documented as of this encounter
--- OUTSIDE RECORDS SUMMARY | 2024-04-03 10:58 | XMS_ITS | Clinical Summary ---
Author Organization [facility] Address [address] [place] [address] Care Team Providers Care Food Sampler Name Role Phone Unavailable Primary Care Provider Unavailabl e Social History Tobacco Use Types Packs/Day Years Used Date Smoking Tobacco: Never Assessed Comments Unknown Sex and Gender Information Value Date Recorded Sex Assigned at Not on file Legal Sex Female 7:25 PM CDT Gender Identity Not on file Sexual Orientation Not on file Plan of Treatment Health Maintenance Due Date Last Done Comments DTaP, Tdap and Td Vaccines ( 1 - Tdap) 06/29/1958 Zoster Vaccines (1 of 2) 06/29/1989 Dexa Scan (General) 06/29/2004 Pneumococcal Vaccine: 65+ Ye ars (1 of 1 - PCV) 06/29/2004 RSV Immunization or 60+ Years (1 - 1-dose 75+ series) 06/29/2014 COVID-19 Vaccine ( - 2023-2 5 season) 2023 Influenza Adult (#1) 2023 Meningococcal B Vaccine Aged Out No l onger eligible based on patient's age to complete this topic Meningococcal Vaccine Aged Out No tamar nico eligible based on patient's age to complete this topic RSV Immunizations Under 20 Months Aged Out No longer eligible based on patient's age to complete this topic
--- OUTSIDE RECORDS SUMMARY | 2024-04-03 10:58 | XMS_ITS ---
Author Organization [facility] Address [address] [address] [place] [address] Care Team Providers Care Automatic Clipper Name Role Phone BrianDcTodd Unavailable [phone] MEDICATIONS Medication SIG (Take, Route, Frequency, Duration) Notes Start Date End Date Status Allopurinol 100 MG 1 tablet Orally Once a day for 90 day(s) 01/08/2023 10/05/2023 Active Ergocalciferol 1.25 MG (65242 UT) 1 capsule Orally Once a week for 90 day(s) 01/08/2023 10/05/2023 Active SOCIAL HISTORY Sex Assigned At : Social History Observation Description Sex Assigned At Female Encounters Encounter Location Date Provider Diagnosis [facility] [address] [facility] [address] [place] [address] 01/08/2023 Todd Torres PLAN OF TREATMENT Medication Medication Name Sig Start Date Stop Date Notes Allopurinol 100 MG 1 tablet Orally Once a day for 90 day(s) 01/08/2023 10/05/2023 Ergocalciferol 1.25 MG (5000 0 UT) 1 capsule Orally Once a week for 90 day(s) 01/08/2023 10/05/2023 Progress Notes * Nadine BURDENDOB:1940 (82 yo F)Acc No.[id number]:01/08/2023 Patient: Nadine BURDEN :1940 Age:82 Y Sex:Female Address:[address] [place] [address] * Refills Start Ergocalciferol Capsule, 1.25 MG (79796 UT), Orally, 13, 1 capsule, Once a week, 90 day(s), Refills=2 Start Allopurinol Tablet, 100 MG, Orally, 90 Tablet, 1 tablet, Once a day, 90 day(s), Refills=2 * true * Date:
--- OUTSIDE RECORDS SUMMARY | 2024-04-03 10:58 | XMS_ITS | Clinical Summary ---
Author Organization [facility] Address [address] [place] [address] Care Team Providers Care Production Internship Name Role Phone Barbara Ho MD Unavailable [phone] Breonna Robin MD Unavailable [phone] Cornelius Snider MD Primary Care Provider Allergies Active Allergy Reactions Criticality Noted Date Comments Adhesive Tape-Silicones Hives,Rash Medium Celecoxib Other (See comments) Low Abdominal pain Citalopram Unknown 02/06/2023 Diclofenac Other (See comments) Low Stomach Cramp Duloxetine Nausea only Low 04/27/2020 Gabapentin Other (See comments) Low 08/02/2019 Feelings of passing out/ loss of appetite Guanfacine Rash Medium 06/01/2015 Latex Rash Medium 07/17/2018 Memantine Headache Low 11/20/2023 Penicillins Rash Medium Fluoxetine Anxiety Low 09/25/2020 Sulfa (Sulfonamide Antibiotics) Rash Medium Tramadol Nausea only Low 06/01/2015 Verapamil Stomach upset Low 06/01/2015 Ondansetron Hcl Other (See comments) Low 06/01/2015 Medications fluticasone propion-salmetero L (ADVAIR HFA) 230-21 mcg/actuation inhaler Active VOLTAREN 1 % gel 06/21/19 18 Active fluticasone propionate (FLONASE NASL) Activ e COMBIVENT RESPIMAT 20-100 mcg/actuation inhalerIndication s:Chronic Obstructive Pulmonary Disease with Bronchospasms Inhale 1 puff 2 (two) times a day 06/25/19 18 Active levothyroxine (SYNTHROID, LEVOTHROID) 100 mcg tablet Take 1 tablet (100 mcg total) by mouth Active montelukast (SINGULAIR) 10 mg tablet Take 1 tablet (10 mg total) by mouth Active multivitamin tabletIndications :Vitamin Deficiency Prevention Active potassium chloride ER (KLOR-CON) 10 mEq CR tablet Active furosemide (LASIX) 40 mg tablet Take 1 tablet (40 mg total) by mouth daily 09/16/19 19 Active losartan (COZAAR) 100 mg tablet Take 1 tablet (100 mg total) by mouth daily Active vit C/vit E ac/lut/copper/zin c (PRESERVISION LUTEIN ORAL) Take 1 tablet by mouth daily Active EPINEPHrine 0.3 mg/0.3 mL auto-injection syringeIndication s:Anaphylaxis Inject 0.3 mL (0.3 mg total) under the skin as needed for anaphylaxis Active acetaminophen ER (Tylenol Arthritis Pain) 650 mg 8 hr tablet Take 2 tablets every 8 hours by oral route. 05/25/19 22 Active Ca-D3-mag hr-cgod-ojs-mayte- bor (Calcium 600-D3 Plus, mag-zinc,) 600 mg calcium- 20 mcg-50 mg tablet 04/02/19 22 Active calcitRIOL (ROCALTROL) 0.25 mcg capsule Take 1 capsule every day by oral route. 07/20/19 23 Active carvediloL (COREG) 12.5 mg tablet 07/02/19 23 Active ergocalciferol (VITAMIN D) 50,000 unit capsule 06/03/19 23 Active memantine (NAMENDA) 10 mg tablet memantine 10 mg tablet TAKE 1 TABLET BY MOUTH TWICE A DAY Active phenazopyridine (PYRIDIUM) 200 mg tablet TAKE 1 TABLET BY MOUTH THREE TIMES A DAY NEEDED FOR PAIN 09/07/19 23 Active rosuvastatin (CRESTOR) 10 mg tablet 06/18/19 23 Active aspirin 81 MG oral suspension 04/22/[address] (CYMBALTA) 20 mg capsule Take 1 capsule every day by oral route. Active terbinafine (LamiSIL) 250 mg tablet Take 1 tablet (250 mg total) by mouth daily 10/01/19 23 Active felodipine (PLENDIL) 5 mg 24 hr tablet Take 1 tablet (5 mg total) by mouth daily 10/29/19 23 Active loperamide (IMODIUM) 2 mg capsule 10/01/19 23 Active donepeziL (Aricept) 5 mg tabletIndications :Mild to Moderate Alzheimer's Type Dementia Take 1 tablet (5 mg total) by mouth nightly 90 tablet 3 11/15/19 23 Active escitalopram (LEXAPRO) 20 mg tabletIndications :Anxiety with Depression Take 1 tablet (20 mg total) by mouth daily 90 tablet 3 11/15/19 23 Active aspirin 81 mg enteric coated tablet 10/15/19 24 Active albuterol HFA (PROVENTIL HFA,VENTOLIN HFA,PROAIR HFA) 90 mcg/actuation inhaler 10/15/19 24 Active allopurinoL (ZYLOPRIM) 100 mg tablet 10/15/19 24 Active Astepro Allergy 205.5 mcg (0.15 %) spray,non-aerosol 09/12/19 24 Active Refresh Tears 0.5 % ophthalmic solution APPLY 1 DROP EVERY DAY BY OPHTHALMIC ROUTE NEEDED FOR DRY EYES. 10/28/19 24 Active cetirizine (ZyrTEC) 10 mg tablet 09/22/19 24 Active Trelegy Ellipta 100-62.5-25 mcg inhaler INHALE 1 PUFF EVERY DAY 10/16/19 24 Active bacitracin 500 unit/gram ointment Apply topically 2 (two) times a day 28 g 12/11/19 24 Active oxyBUTYnin XL (DITROPAN-XL) 10 mg 24 hr tablet 01/05/20 24 Active lidocaine (ASPERCREME) 4 % adhesive patch,medicatedIn dications:Neck pain Place 1 patch on the skin daily as needed (neck pain) Apply in the am, 12 hours on and 12 hours off 30 patch 03/31/19 25 Active irbesartan (AVAPRO) 300 mg tablet 020 Discontin ued(Other ) alendronate (FOSAMAX) 70 mg tablet Take 70 mg by mouth every 7 days Take in the morning with a full glass of water, on an empty stomach, and do not take anything else by mouth or lie down for the next 30 min. 020 Discontin ued(Thera py completed ) QUEtiapine (SEROquel) 25 mg tablet Take 1 tablet (25 mg total) by mouth 2 (two) times a day 60 tablet 6 02/11/19 25 025 Discontin ued(Thera py completed ) Hospital, Clinic, or Other Facility Administered Medication Ordered Dose Route Frequency Start Date End Date Status aflibercept syringe (EYLEA) 2 mg/0.05 mL intraocular syringe 2 mgIndications:Cystoi d macular edema of left eye 2 mg One-Time Injection 03/11/2024 03/11/2024 Ended Active Problems Problem Noted Date Diagnosed Date Alzheimer's disease with late onset 03/12/2022 Assessment & Plan (12/16/2023 8:49 AM HAM STRIPPER): Continue donepezil/Aricept 10 mg daily. She did not tolerate memantine/Namenda. Continue escitalopram/Lexapro 20 mg daily. We will trial a dose of quetiapine/Seroquel 25 mg nightly to help with the skin picking. We went over relevant side effects. We can increase this to 25 mg BID if we see benefit after 3-4 weeks. We briefly discussed lecanemab/Leqembi and the START study. Family would like to converse with other family members about it and will get back to us if they would like patient to pursue it. She is not driving. I support this decision. Follow-up in 6 months or sooner if need be. Head injury without skull fracture 01/24/2022 Memory loss or impairment 01/24/2022 Pseudophakia, both eyes 01/14/2020 Conjunctival hemorrhage of left eye 01/14/2020 Radiation retinopathy, subsequent encounter 08/2019 Assessment & Plan (06/07/2021 3:19 PM CDT): Worsened ME with out tx. Will resume monthly Eylea OS and will re-evaluate in 6 months. Assessment & Plan (12/07/2020 2:41 PM CDT): Was getting injections q month, doing well. Last KATE OS 09/21/20 w/ continued/stable near resolution of CME today. Will continue drug holiday and re-eval in 8 weeks. Assessment & Plan (10/26/2020 2:56 PM CDT): Was getting injections q month, doing well, will try a drug holiday to see if ME returns, will re-eval in 6 weeks with OCT OS. Assessment & Plan (02/17/2020 2:12 PM HAM STRIPPER): Pt was able to attain assistance from [employer] for cost of Eylea - will inject Eylea today and then again in Mar. Will re-eval tumor and rad retinopathy in April. Assessment & Plan (01/13/2020 2:32 PM HAM STRIPPER): Macular edema is improved, following 3 injections of Avastin. Recommend continuing anti-VEGF therapy. She would to try and get [employer] assistance for the cost of the medication. We may need to switch to a different medicine if [employer] will support her getting the medication for free. If not we will continue with Avastin. Will inject a Avastin to the left eye today and reinject monthly for in February and then again in March, then re-evaluate the tumor and macular edema with OCT color photographs and ultrasound in April. Cystoid macular edema of left eye 10/13/2019 Assessment & Plan (03/11/2024 4:26 PM HAM STRIPPER): Radiation retinopathy with cystoid macular edema, responsive to eylea. Last KATE 11/20/23. Previously minimal improvement in VA after resolution of IRF. Today IRF has worsened and VA is decreased. Discussed treatment vs observation. We had tried to increase interval from 2-3 months, and with an interval 3 months has worsening CME. Recommend repeat injection with Eylea today. Risks, benefits, alternatives reviewed with the patient. Recommend decreasing intervals to 2 months. 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 Transitioned to q2 months regimen about 6 months ago. Last KATE 08/07/23, minimal improvement in vision after resolution of IRF. Today with trace IRF OS. Can consider anti-VEGF with longer follow up interval versus observation. She would like repeat injection today with re-evaluation in 3 months time. If remains stable with next visit can consider longer intervals. 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 Transitioned to q2 months regimen about 6 months ago. Last KATE 08/07/23, essentially resolved/minimal IRF at this time. Minimal improvement in vision per patient. We will hold off another injection at this time, we will re-evaluate in roughly 6 weeks' time. If she continues to have no fluid, we will continue to spread out her visits without therapy. If however she develops recurrent macular edema will reconsider the need for anti VEGF therapy. Assessment & Plan (03/06/2023 11:32 AM HAM STRIPPER): Radiation retinopathy with cystoid macular edema, responsive to eylea. Last AKTE 02/06/23 Essentially resolved/minimal IRF at this time. Will change to q 2months regimen and re-eval in 6 months. Will inject today to start the process. Assessment & Plan (09/13/2022 11:40 AM CDT): Here one week too early - will reschedule. 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 She has received a series of 6 in the past and has noticed return of symptoms the last few weeks - she was evaluated for these symptoms and given an injection on 07/04/22 OS. 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 She has received a series of 6 in the past and has noticed return of symptoms the last few weeks. Plan for eylea today and again in 1 month, plan to return in between for B scan of choroidal melanoma on a noninjection day. Return 4 weeks for injection left eye, 2 weeks for B scan Assessment & Plan (03/28/2022 2:19 PM HAM STRIPPER): Last KATE 12/06/21. Resolved cystoid macular edema (CME) left eye (OS) after latest injection, visual acuity (VA) stable at 20/30. Recommend observation. RTC in 2 months. Assessment & Plan (01/30/2022 2:00 PM HAM STRIPPER): Last KATE 12/06/21. Resolved cystoid macular edema (CME) left eye (OS) after latest injection, subjectively better, visual acuity (VA) stable at 20/40. Will defer injection today left eye she elects to observe instead given good response. RTC in 2 months. Last A/B scan done in 06/01- will repeat in 2 months. Assessment & Plan (09/06/2021 2:29 PM CDT): Repeat KATE OS today as schedule Return 1 month for KATE OS as scheduled Assessment & Plan (08/09/2021 2:56 PM CDT): Repeat KATE OS today as schedule Return 1 month for KATE OS as scheduled Assessment & Plan (02/01/2021 1:46 PM HAM STRIPPER): Previously on KATE monthly. Last KATE OS 09/21/20 w/ essential resolved CME today. Cont observation. Assessment & Plan (12/07/2020 2:40 PM CDT): Likely due to Radiation Retinopathy - Changed from Avastin to Eylea in 10/2019, and ME had much improved. Today w/ stable nearly resolved CME w/ anti-VEGF holiday - last injection was 09/30. Will continue to observe for now - re-eval in 8 weeks. Assessment & Plan (10/26/2020 2:57 PM CDT): Likely due to Radiation Retinopathy - Changed from Avastin to Eylea in 10/2019, and ME had much improved. Assessment & Plan (06/29/2020 1:35 PM CDT): Likely due to Radiation Retinopathy. Changed from Avastin to Eylea in 10/2019, ME much improved. Now doing well have Eylea x2. Plan is to repeat KATE qmonthly for 6 months. 1st injection for this period in 04/2020. OCT OS w/ stable small cystic changes. No significant change from prior. Unclear if contributing to patient's recent visual symptoms. But BCVA improved today. Recommend continuing with KATE OS monthly as planned until 10/2020. R/B/A reviewed with pt. Assessment & Plan (04/27/2020 4:00 PM CDT): Likely due to Radiation Retinopathy - Changed from Avastin to Eylea in 10/2019, ME much improved. Now doing well have Eylea x2. Recommend repeat Eylea q month for 6 months then re-evaluate. R/B/A reviewed with pt. Assessment & Plan (10/13/2019 10:23 AM CDT): Differential includes radiation retinopathy (status post (s/p) plaque 04/2017), diabetic macular edema (although not technically diabetic, A1C 5.3%), AMD (although OCT only with few scattered small drusen). Suspect related to radiation retinopathy. Could consider a trial of anti-VEGF v. observation Radiation retinopathy, initial encounter 020 Assessment & Plan (10/13/2019 10:32 AM CDT): We discussed interventions such as anti-VEGF therapy. After thorough discussion risks and benefits which include infection, bleeding, vision loss, need for multiple injections, retinal detachment and tears patient wished to proceed with an a Avastin injection to the right eye today. (FDA status was reviewed with the patient.). Will do an injection once a month for 3 months and then re-evaluate. Left eye. Hypertension associated with diabetes 02/28/2019 Assessment & Plan (05/17/2019 1:05 PM CDT): Chronic , Well controlled Assessment & Plan (02/28/2019 11:10 AM HAM STRIPPER): Choric, well controlled continue current medication regimen Polyneuropathy associated with underlying diseas e 11/22/2018 Assessment & Plan (02/28/2019 11:09 AM HAM STRIPPER): Chronic, stable Pt off gabapentin Assessment & Plan (11/22/2018 9:50 PM CDT): Chronic, worsening Advised to start Gabapentin therapy Acquired hypothyroidism 11/22/2018 Assessment & Plan (05/17/2019 1:04 PM CDT): Continue current dose of levothyroxine Check TSH Assessment & Plan (02/28/2019 11:09 AM HAM STRIPPER): Continue current Levothyroxine dose Check TSH Further plans based on the lab results Instructions for taking levothyroxine Brand name is preferred Take thyroid pill all by itself Take thyroid pill one hour before food or 2 to 3 hours after food Heat, humidity, and direct sunlight will cause a loss of potency Never store thyroid pill in the bathroom The medication should be taken daily. If one or more pills are missing in a week, they can be taken all together at once, making sure at the end of the week, 7 tabs have been taken. Instructions for taking levothyroxine Brand name is preferred Take thyroid pill all by itself Take thyroid pill one hour before food or 2 to 3 hours after food Heat, humidity, and direct sunlight will cause a loss of potency Never store thyroid pill in the bathroom The medication should be taken daily. If one or more pills are missing in a week, they can be taken all together at once, making sure at the end of the week, 7 tabs have been taken. Assessment & Plan (11/22/2018 9:50 PM CDT): Continue current Levothyroxine dose Check TSH Further plans based on the lab results Instructions for taking levothyroxine Brand name is preferred Take thyroid pill all by itself Take thyroid pill one hour before food or 2 to 3 hours after food Heat, humidity, and direct sunlight will cause a loss of potency Never store thyroid pill in the bathroom The medication should be taken daily. If one or more pills are missing in a week, they can be taken all together at once, making sure at the end of the week, 7 tabs have been taken. Instructions for taking levothyroxine Brand name is preferred Take thyroid pill all by itself Take thyroid pill one hour before food or 2 to 3 hours after food Heat, humidity, and direct sunlight will cause a loss of potency Never store thyroid pill in the bathroom The medication should be taken daily. If one or more pills are missing in a week, they can be taken all together at once, making sure at the end of the week, 7 tabs have been taken. 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 Assessment & Plan (11/20/2023 3:21 PM CDT): Remains stable, recommend observation status post external plaque radiation.. Assessment & Plan (09/11/2023 11:55 AM CDT): Remains stable, recommend observation status post external plaque radiation. Assessment & Plan (03/06/2023 11:22 AM HAM STRIPPER): S/p plaque tx 2018 - here today for fundus photos which are stable. Will re-eval in aprox 1 year Assessment & Plan (07/18/2022 1:31 PM CDT): S/p plaque tx 2018 - here today for U/S - appears stable, flat Will re-eval in aprox 1 year Assessment & Plan (03/28/2022 2:20 PM HAM STRIPPER): S/p plaque tx 2017 - appears stable. 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 Stable today, recommend observation. Assessment & Plan (02/01/2021 1:49 PM HAM STRIPPER): Stable exam today. Monitoring with ultasound q6m. Next A/B scan due 04/2021. Pt sees oncology for met screening. Assessment & Plan (12/07/2020 2:33 PM CDT): Stable in size per exam today, stable on a-/b-scan measurements/photos from 10/26/20. Doing well. Cont monitoring. Sees oncology for met screening. Assessment & Plan (10/26/2020 2:55 PM CDT): Stable in size per a-/b-scan measurements, photos, and exam. Doing well. Cont monitoring. Sees oncology for met screening. Assessment & Plan (04/27/2020 3:39 PM CDT): Appears stable on U/S and photos today in appearance, unchanged in size, without EOE. Assessment & Plan (01/13/2020 2:28 PM HAM STRIPPER): Remains stable. Recommend observation. 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 Due for A/B scan in January. Assessment & Plan (08/05/2019 3:14 PM CDT): Stable today, recommend observation. Pt sees oncology for met screening in [place]. Pt notes occasional headache, no GCA symptoms, recommended follow up with her PMD. Patient was told she may have some early macular degeneration, she has a few drusen in the macula both eyes she is currently taking multivitamin therapy. I have encouraged her monitor vision using an Amsler grid. Assessment & Plan (12/03/2018 1:43 PM CDT): Stable today, recommend observation. See oncology for met screening Patient was told she may have some early macular degeneration, she has a few drusen in the macula both eyes she is currently taking multivitamin therapy. I have encouraged her monitor vision using an Amsler grid. 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 Assessment & Plan (11/06/2017 11:09 AM CDT): Regressing choroidal melanoma, stable. Assessment & Plan (07/30/2017 12:46 PM CDT): Regressing following external plaque radiation in April of 2017. Recommend evaluation with oncology for metastatic screening. RTC 3 months. Diabetes mellitus 07/29/2017 Assessment & Plan (05/17/2019 1:04 PM CDT): Chronic, well controlled Once done with Janumet advised to stop Start metformin 1000 mg oral twice a day with meals Labs in 3 months Follow-up in 6 months Assessment & Plan (02/28/2019 11:08 AM HAM STRIPPER): Chronic, A1c today 5.3 % Over tight controlled given pt age , plan to loosen the control to avoid hypoglycemia Advised to stop Janumet change to Metformin 1000 mg oral BID with meals Recheck A1c in 3 months Assessment & Plan (11/22/2018 9:48 PM CDT): Chronic, well controlled A1c today - 5.4 % Continue current medication regimen Recommend annual dilated eye exam Daily foot care Increase physical activity as tolerated Vitreous floater, bilateral 07/29/2017 Resolved Problems Problem Noted Date Diagnosed Date Resolved Date Nuclear age-related cataract, both eyes 07/30/2017 10/13/2019 Assessment & Plan (11/06/2017 11:09 AM CDT): Stable today, recommend observation. Assessment & Plan (07/30/2017 12:46 PM CDT): Stable today, recommend observation. 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 [place] [address] Monae Fischer RN 02/13/2024 Documentation [facility] [address] [place] [address] Pradeep Lin 02/12/2024 Telephone [facility] [address] [place] [address] Pradeep Lin Med Management from Last 3 Months Immunizations Immunization Administration Dates Next Due Hep A, Adult 08/22/2006 Hep A, Unspecified 02/24/2007,08/22/2006 Hep B Vaccine 02/24/2007,10/27/2006,09/24/2006 Influenza, Quad, Adjuvantate d, Intramuscular 09/24/2019 Influenza, Quadrivalent, Spl it, Intramuscular 09/24/2019,10/19/2018 Influenza, Trivalent, Adjuva nted, Intramuscular 10/19/2018,11/14/2017 Influenza, Trivalent, High D ose, Split, Preservative Free, Intramuscular 10/16/2016,10/10/2015,10/28/2014 Influenza, Trivalent, IM (MDV) 11/02/2012 Influenza, Unspecified 10/22/2021,2017,10/16/2016,10/19,11/09/2012,11/20/2011 Pneumococcal Polysaccharide PPV23 10/10/2015 Pneumococcal, Unspecified 11/12/2021,,11/11/2007,12/05 Sars-CoV-2, Unspecified 05/01/2020,03/16/2020 Tdap 09/24/2006,12/08/2000 ZOSTER LIVE 11/19/2005 ZOSTER Recombinant 10/19/2018,10/17/2018, 019 Zoster, unspecified 10/19/2018, 9,09/24/2006,11/19 Surgical History Surgery Date Site/Laterality Comments RADIOACTIVE PLAQUE INSERTION 04/10/2017 - 05/10/2017 Left RADIOACTIVE PLAQUE REMOVAL 04/10/2017 - 05/10/2017 Left INTRAOCULAR LENS INSERTION EYE SURGERY 04/10/2017 - 05/10/2017 Left EPR for melanoma CATARACT EXTRACTION 09/10/2018 - 10/10/2018 Bilateral PCIOL HYSTERECTOMY MENISCECTOMY CHOLECYSTECTOMY TOTAL KNEE ARTHROPLASTY Left SINUS SURGERY Medical History Medical History Date Comments Cataract Choroidal malignant melanoma, left (HCC) Asthma Hypertension Heart disease Diabetes (HCC) Sinusitis Family History Medical History Relation Name Comments Liver cancer Brother 1 Skin cancer Brother 1 Cancer Brother 2 Breast cancer Sister Relation Name Status Comments Brother 1 Brother 2 Sister Social History Tobacco Use Types Packs/Day Years Used Date Smoking Tobacco: Former Smokeless Tobacco: Former Tobacco Cessation:Counseling Given: Not Answered Alcohol Use Standard Drinks/Week Comments Yes 0 (1 standard drink = 0.6 oz pur e alcohol) PHQ-2 Answer Date Recorded PHQ-2 Score 1 11/16/2018 Comments Unknown Sex and Gender Information Value Date Recorded Sex Assigned at Not on file Legal Sex Female 2:36 AM HAM STRIPPER Gender Identity Female 02/23/2020 1:36 PM HAM STRIPPER Sexual Orientation Straight 02/23/2020 1: 36 PM HAM STRIPPER Obstetrics History Last Filed Vital Signs Vital Sign Reading Time Taken Comments Blood Pressure 142/88 03/31/2024 10:31 AM HAM STRIPPER Pulse 85 03/31/2024 10:31 AM HAM STRIPPER Temperature 37.2 C (98.9 F) 03/31/2024 10:31 AM HAM STRIPPER Respiratory Rate 20 03/31/2024 10:31 AM HAM STRIPPER Oxygen Saturation 95% 03/31/2024 10:31 AM HAM STRIPPER Inhaled Oxygen Concentration - - Weight 89.8 kg (198 lb) 03/31/2024 10:31 AM HAM STRIPPER Height 170.2 cm (5' 7 ) 12/16/2023 7:46 AM HAM STRIPPER Body Mass Index 31.01 12/16/2023 7:46 AM HAM STRIPPER Plan of Treatment Health Maintenance Due Date Last Done Comments Well Visit 65+ 06/29/2004 DTaP/Tdap/Td Vaccine (3 - Td or Tdap) 09/24/2016 09/24/2006, 12/08/2000 Hemoglobin A1C 08/23/2019 02/22/2019, 100 08/2018, 11/13/2018 Fall Risk Assessment 12/11/2019 12/10/2018, 10/15/2018, 09/17/2018, Additional history exists Depression Screening 02/23/2020 02/22/2019, 11/17/19 19 Foot Exam 02/23/2020 02/22/2019, 11/16/2018 Albumin Creatinine Ratio, Urine 05/27/2020 0 Lipid Panel 07/14/2021 07/14/2020, 05/11, 11/16/2018 Osteoporosis Screening-Bone Density Scan 06/22/2022 06/22/2020 Pneumococcal vaccine 65+ (2 of 2 - PCV) 11/12/2022 11/12/2021, 10/10/2015, 10/10/2015, Additional history exists Influenza Vaccine (#1) 2023 , 09/24/2019, 09/24/2019, Additional history exists eGFR 11/23/2024 11/24/2023, 11/11, 12/03/2021, Additional history exists Dilated Eye Exam 03/11/2025 03/11/2024, 11/2023, 09/11/2023, Additional history exists Hepatitis B Screening Completed 02/24/2007 , 10/27/2006, 09/24/2006 Zoster Vaccine Completed 10/19/2018, 10/2018, 10/17/2018, Additional history exists Medical Devices Implanted Type Area Bailer Operators Supervisor Device Identifier Shelf Expiration Date Model / Serial / Lot Knee Left: Knee Procedures Procedure Name Priority Date/Time Associated Diagnosis Comments INTRAVITREAL INJECTION, PHARMACOLOGIC AGENT - OS - LEFT EYE Routine 03/11/2024 4:44 PM HAM STRIPPER Cystoid macular edema of left eye OCT, RETINA - OS - LEFT EYE Routine 03/11/2024 4:24 PM HAM STRIPPER Cystoid macular edema of left eye EGFR Routine 11/24/2023 11:44 AM CDT Ocular melanoma, left (HCC) LIPID PANEL Routine 07/14/2020 8:53 AM CDT ALBUMIN CREATININE RATIO, URINE Routine 05/28/2019 8:52 AM CDT Type 2 diabetes mellitus with hyperglycemia, without long-term current use of insulin ([facility]) POCT HEMOGLOBIN A1C Routine 02/22/2019 1 1:08 AM HAM STRIPPER Type 2 diabetes mellitus with hyperglycemia, without long-term current use of insulin ([facility]) from Last 3 Months or Most Recently Relevant to Health Maintenance Results * Intravitreal Injection, Pharmacologic Agent - OS - Left Eye (03/11/2024 4:44 PM HAM STRIPPER) Anatomical Region Laterality Modality Head Other Narrative 03/11/2024 4:44 PM HAM STRIPPER Time Out Informed consent was obtained after all risks, benefits and alternatives were explained to the patient. The patient understood, agreed and wished to proceed. Timeout was completed verifying the patient, procedure, laterality and allergies. Anesthesia Subconjunctival anesthesia was used, Topical anesthesia was used. Anesthetic medications included Lidocaine 2%, Proparacaine 0.5%. The anesthesia lot number is [id number]. The expiration date is 03/12/2025. The manufacture of the medication is [employer]. Intravitreal Injection, Pharmacologic Agent Preparation included 5% betadine to ocular surface, 10% betadine to eyelids. A 30 gauge needle was used. Pharmaceutical Medication: 2 mg aflibercept syringe 2 mg/0.05 mL Route: intravitreal, Site: Left Eye [facility]: 18449-585-71, Lot: [id number], Expiration date: 05/10/2024, Waste: 0 mL The medication administered today was not supplied by the patient or insurance. The medication administered today was not a sample. Post-op Post injection exam found visual acuity is at least hand motion, no retinal detachment, perfused optic nerve. the patient tolerated the procedure. there were no complications during today's treatment. The patient received written and verbal post procedure care education. Post injection medications were not given. The attending physician was present for the entire procedure. Notes Consent signed: Eylea OS 03/11/24 Barbara Ho MD OPHTH CLINIC PROCEDURES Fi nal Result * OCT, Retina - OS - Left Eye (03/11/2024 4:24 PM HAM STRIPPER) Anatomical Region Laterality Modality Head Optical Coherenc e Tomography Narrative 03/11/2024 4:24 PM HAM STRIPPER Quality was good. Scan locations included subfoveal. Progression has worsened. Notes New IRF nasally, reticular drusen, pigment migration. Stacy Shelby MD PhD OPHTH TOMOGRAPHY Final Result * (ABNORMAL) eGFR (11/24/2023 11:44 AM CDT) eGFR 53(L) >=60 mL/min/1. 73 m2 Comment: Interpretive Data Reference Interval Normal >/= 90 mL/min/1.73m2 Mildly decreased* 60 - 89 mL/min/1.73m2 Mildly to moderately decreased 45 - 59 mL/min/1.73m2 Moderately to severely decreased 30 - 44 mL/min/1.73m2 Severely decreased 15 - 29 mL/min/1.73m2 Kidney Failure < 15 mL/min/1.73m2 *Relative to young adult level Estimated glomerular filtration rate is determined by the 2020 CKD-EPI equation recommended by the National Kidney Foundation (A Unifying Approach to GFR Estimation: Recommendations of the NKF-ASK Task Force on Reassessing the Inclusion of Race in Diagnosing Kidney Disease, JASN 2020). The CKD-EPI equation should not be used for patients with unstable renal function and has not been validated in children and those over 70. Current interpretive data was last reviewed 2020. Blood 11/24/2023 11:4 4 AM CDT 11/24/2023 11:51 AM CDT Lalo Miller MD LAB BLOOD ORDERABLES Final Res ult [facility] Department [place] [address] * Lipid panel (07/14/2020 8:53 AM CDT) SCRIBED Cholesterol, Total 144 100 - 199 EXTERNAL LAB SCRIBED HDL 52 >39 - NA EXTERNAL LAB SCRIBED LDL 69 0 - 99 EXTERNAL LAB SCRIBED Triglycerides 128 0 - 149 EXTERNAL LAB Blood specimen (specimen) 07/14/2020 8:53 AM CDT us Historical Provider LAB BLOOD ORDERABLES Edit ed Result - Final EXTERNAL LAB * Albumin Creatinine Ratio, Urine (05/28/2019 8:52 AM CDT) Creatinine, ur 130 20 - 275 mg/dL [facility] [place] Microalbumin, ur 2.1 See Note: mg/dL [facility] [place] Comment: Reference Range: Reference Range Not established Microalbumin/creat ratio 16 <30 mcg/mg creat [facility] [place] Comment: The ADA defines abnormalities in albumin excretion as follows: Category Result (mcg/mg creatinine) Normal <30 Microalbuminuria 30-299 Clinical albuminuria > OR = 300 The ADA recommends that at least two of three specimens collected within a 3-6 month period be abnormal before considering a patient to be within a diagnostic category. Urine 05/28/2019 8:52 AM CDT 05/28/2019 8:53 AM CDT Narrative [facility] - 05/29/2019 4:36 PM CDT FASTING:YES FASTING: YES Resulting Agency Comment Performing Organization Information: Site ID: [id number] Name: [facility] Address: [address] [place] [address] Director: Wilbert Murphy D.O., MPH us Breonna Miller MD LAB URINE ORDERABLE S Final Result [facility] [place] * POCT hemoglobin A1c (02/22/2019 11:08 AM HAM STRIPPER) Hemoglobin A1C, POC 5.3 Blood specimen (specimen) 02/22/2019 11:08 AM HAM STRIPPER Breonna Miller MD POINT OF CARE TEST ORDERABLES Final Result from Last 3 Months or Most Recently Relevant to Health Maintenance Insurance [employer] MEDICARE FOR LIFE FOR LIFE MEDICARE [facility] Address: [address] [address] [place] [address] MEDICARE FOR LIFE Advance Directives For more information, please contact: [phone] Documents on File Type Date Recorded Patient Fabrication Manager Expl anation ADVANCE DIRECTIVE 05/09/2017 12:00 AM Care Teams Production Internship Relationship Specialty Start Date End Date Cornelius Snider MD [address] [place] [address] PCP - General Internal Medicine 05/09/22 Barbara Ho MD [address] [facility] [address] [place] [address] Surgeon Ophthalmology 07/31/17 [place] [address] [facility] [address] [place] [address] Consulting Physician Endocrinology 11/16/18
--- OUTSIDE RECORDS SUMMARY | 2024-04-03 10:58 | XMS_ITS | Encounter Summary ---
Author Organization [facility] Address [address] [place] [address] Phone Care Team Providers Care Advanced Nursing Professor Name Role Phone Ezio Vance MD Primary Care Provider Ezio Vance MD Primary Care Provider [phone] Ezio Vance MD Unavailable [phone] Barbara Ho MD Unavailable [phone] Breonna Robin MD Unavailable [phone] Unknown, Notinfile Primary Care Provider Unavail able Sky Jones MD Primary Care Provider [phone] Cornelius Snider MD Primary Care Provider [phone] Femi Blas MD Primary Care Provider [phone] Cornelius Snider MD Primary Care Provider [phone] Cornelius Snider MD Primary Care Provider [phone] Encounter Details Date Type Department Care Team (Late st Contact Info) Description 03/24/2017 Orders Only [facility] ProviderBlack MD [address] [place] [address] Social History Tobacco Use Types Packs/Day Years Used Date Smoking Tobacco: Former Comments Unknown Sex and Gender Information Value Date Recorded Sex Assigned at Not on file Legal Sex Female 2:36 AM OFFICE MOVER Gender Identity Female 02/23/2020 1:36 PM OFFICE MOVER Sexual Orientation Straight 02/23/2020 1: 36 PM OFFICE MOVER documented as of this encounter Plan of Treatment Not on file documented as of this encounter Procedures Procedure Name Priority Date/Time Associated Diagnosis Comments PROCEDURE REPORT 03/24/2017 documented in this encounter Results * PROCEDURE REPORT (03/24/2017) Narrative 03/24/2017 Ordered by an unspecified provider. us Historical Provider NURSING COMMUNICATION Fin al Result documented in this encounter Visit Diagnoses Not on filedocumented in this encounter Additional Health Concerns Infection Onset Date Last Indicated Resolved Time COVID: Suspected 02/20/2021 02/20/2021 02/20/2021 8:50 AM OFFICE MOVER COVID19 02/20/2021 02/20/2021 03/02/2021 3:05 AM OFFICE MOVER COVID: Recovered Comment:Added based on recent COVID infection. 03/02/2021 03/23/2021 2021 3:05 AM C DT documented as of this encounter Care Teams Advanced Nursing Professor Relationship Specialty Start Date End Date Ezio Vance MD [address] [address] PCP - General 06/10/16 07/09/18 Ezio Vance MD [address] [address] PCP - General 07/10/18 11/15/18 Unknown, Notinfile PCP - General 11/16/18 11/25/18 Sky Jones MD [address] [place] [address] PCP - General Family Medicine 11/26/18 08/04/19 Cornelius Snider MD [address] [place] [address] PCP - General Internal Medicine 08/05/19 10/25/20 Femi Blas MD [address] [place] [address] PCP - General Internal Medicine 10/26/20 05/07/22 Cornelius Snider MD [address] [place] [address] PCP - General Internal Medicine 05/08/22 05/08/22 Cornelius Snider MD [address] [place] [address] PCP - General Internal Medicine 05/09/22 Ezio Vance MD [address] [address] 07/10/18 11/15/18 Barbara Ho MD [address] [facility] [address] [place] [address] Surgeon Ophthalmology 07/31/17 [place] [address] [facility] [address] [place] [address] Consulting Physician Endocrinology 11/16/18 documented as of this encounter
--- OUTSIDE RECORDS SUMMARY | 2024-04-03 10:58 | XMS_ITS ---
Author Organization [facility] Address [address] [place] [address] Care Team Providers Care Hydrogeology Professor Name Role Phone Barbara Ho MD Unavailable [phone] Breonna Robin MD Unavailable [phone] Cornelius Snider MD Primary Care Provider Active Problems Problem Noted Date Diagnosed Date Alzheimer's disease with late onset 03/12/2022 Assessment & Plan (12/16/2023 8:49 AM MARKER MACHINE ATTENDANT): Continue donepezil/Aricept 10 mg daily. She did [...] OS. Assessment & Plan (02/17/2020 2:12 PM MARKER MACHINE ATTENDANT): Pt was able to attain assistance from [facility] for cost of Eylea - will inject Eylea today and then again in Mar. Will re-eval tumor and rad retinopathy in April. Assessment & Plan (01/13/2020 2:32 PM MARKER MACHINE ATTENDANT): Macular edema is improved, following 3 injections of Avastin. Recommend continuing anti-VEGF therapy. She would to try and get [facility] assistance for the cost of the medication. We may need to switch to a different medicine if [facility] will support her getting the medication for free. If not we will continue with Avastin. Will inject a Avastin to the left eye today and reinject monthly for in February and then again in March, then re-evaluate the tumor and macular edema with OCT color photographs and ultrasound in April. Cystoid macular edema of left eye 10/13/2019 Assessment & Plan (03/11/2024 4:26 PM MARKER MACHINE ATTENDANT): Radiation retinopathy with cystoid macular edema, responsive [...] therapy. 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 Last KATE 02/06/23 Essentially resolved/minimal IRF at this time. [...] scan Assessment & Plan (03/28/2022 2:19 PM MARKER MACHINE ATTENDANT): Last KATE 12/06/21. Resolved cystoid macular edema (CME) left eye (OS) after latest injection, visual acuity (VA) stable at 20/30. Recommend observation. RTC in 2 months. Assessment & Plan (01/30/2022 2:00 PM MARKER MACHINE ATTENDANT): Last AKTE 12/06/21. Resolved cystoid macular edema (CME) left [...] scheduled Assessment & Plan (02/01/2021 1:46 PM MARKER MACHINE ATTENDANT): Previously on KATE monthly. Last KATE OS [...] controlled Assessment & Plan (02/28/2019 11:10 AM MARKER MACHINE ATTENDANT): Choric, well controlled continue current medication regimen Polyneuropathy associated with underlying diseas e 11/22/2018 Assessment & Plan (02/28/2019 11:09 AM MARKER MACHINE ATTENDANT): Chronic, stable Pt off gabapentin Assessment & Plan (11/22/2018 9:50 PM CDT): Chronic, worsening Advised to start Gabapentin therapy Acquired hypothyroidism 11/22/2018 Assessment & Plan (05/17/2019 1:04 PM CDT): Continue current dose of levothyroxine Check TSH Assessment & Plan (02/28/2019 11:09 AM MARKER MACHINE ATTENDANT): Continue current Levothyroxine dose Check TSH Further [...] radiation. Assessment & Plan (03/06/2023 11:22 AM MARKER MACHINE ATTENDANT): S/p plaque tx 2018 - here today for fundus photos which are stable. Will re-eval in aprox 1 year Assessment & Plan (07/18/2022 1:31 PM CDT): S/p plaque tx 2018 - here today for U/S - appears stable, flat Will re-eval in aprox 1 year Assessment & Plan (03/28/2022 2:20 PM MARKER MACHINE ATTENDANT): S/p plaque tx 2017 - appears stable. 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 Stable today, recommend observation. Assessment & Plan (02/01/2021 1:49 PM MARKER MACHINE ATTENDANT): Stable exam today. Monitoring with ultasound q6m. [...] EOE. Assessment & Plan (01/13/2020 2:28 PM MARKER MACHINE ATTENDANT): Remains stable. Recommend observation. 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 Due for A/B scan in January. Assessment & Plan (08/05/2019 3:14 PM CDT): Stable today, recommend observation. Pt sees oncology for met screening in [place]. Pt notes occasional headache, no GCA symptoms, [...] months Assessment & Plan (02/28/2019 11:08 AM MARKER MACHINE ATTENDANT): Chronic, A1c today 5.3 % Over tight [...] activity as tolerated Vitreous floater, bilateral 07/29/2017 Current Treatment and Therapy Plans No current plan information found. Past Treatment and Therapy Plans Lifetime Dose Tracking * Chemical Lifetime Dose Automatic Entry Manual Entr y DLP 10,518 mGycm 10,518 mGycm 0 mGycm Resolved Problems Problem Noted Date Diagnosed Date Resolved Date Nuclear age-related cataract, both eyes 07/30/2017 10/13/2019 Assessment & Plan (11/06/2017 11:09 AM CDT): Stable today, recommend observation. Assessment & Plan (07/30/2017 12:46 PM CDT): Stable today, recommend observation. 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
--- OUTSIDE RECORDS SUMMARY | 2024-04-03 10:58 | XMS_ITS | Data Portability ---
Author Organization [place] [facility], Main Office Address [address] [place] [address] Care Team Providers Care Nurse Staff [facility] Name Role Phone BRENT HINES Primary Care Provider Assessment No assessment recorded. Plan of Treatment Reminders Order Date Submit Date Provider Last Modified By Organization Details Last Modified Time Details Appointments Any 15 2024 10:15A Carmine Hines MD Not available Not available Not available Medicare Wellness 15 2024 10:30A Carmine Hines MD Not available Not available Not available Lab None recorded. Referral None recorded. Procedures None recorded. Surgeries None recorded. Imaging None recorded. Medication Orders carvedilo l 6.25 mg tablet 2023 024 [email or web address] [id number], [address] [place], [address], 12/16/2023 13:38:39 benzonata te 200 mg capsule 2023 024 [email or web address] 2 [facility], [address] [place] [address], [address] [place] [address], [address], 08/19/2023 14:24:25 Patient TargetsNo targets recorded. Patient InstructionsNo instructions recorded. Reason for Referral None Reported. Results Created Date Observation Date Name Description Value Unit Range Abnormal Flag Note LastModifiedBy Organization Detail LastModifiedTime 06/18/19 24 06/18/2023 CBC/C OMPLE TE BLD COUNT W/DIF F white blood cells 7.2 x10'3 /uL 4.2-10 .8 Not Available [facility] (Lab) [address] [place], [address], 06/18/2023 20:13:09 06/18/19 24 06/18/2023 CBC/C OMPLE TE BLD COUNT W/DIF F red blood cells 4.46 x10'6 /uL 3.80-5 .20 Not Available [facility] (Lab) [address] [place], [address], 06/18/2023 20:13:09 06/18/19 24 06/18/2023 CBC/C OMPLE TE BLD COUNT W/DIF F hemoglobin 14.1 g/dL 12.0-1 5.6 Not Available [facility] (Lab) [address] [place], [address], 06/18/2023 20:13:09 06/18/19 24 06/18/2023 CBC/C OMPLE TE BLD COUNT W/DIF F hematocrit 43.8 % 35.7-4 5.7 Not Available [facility] (Lab) [address] [place], [address], 06/18/2023 20:13:09 06/18/19 24 06/18/2023 CBC/C OMPLE TE BLD COUNT W/DIF F mean red cell volume 98.2 fL 82.0-9 9.0 Not Available [facility] (Lab) [address] [place], [address], 06/18/2023 20:13:09 06/18/19 24 06/18/2023 CBC/C OMPLE TE BLD COUNT W/DIF F mean red cell hemoglobin 31.6 pg 27.0-3 3.0 Not Available [facility] (Lab) [address] [place], [address], 06/18/2023 20:13:09 06/18/19 24 06/18/2023 CBC/C OMPLE TE BLD COUNT W/DIF F mean RBC HGB concentratio n 32.2 g/dL 31.0-3 6.0 Not Available [facility] (Lab) [address] [facility] [place], [address], 06/18/2023 20:13:09 06/18/19 24 06/18/2023 CBC/C OMPLE TE BLD COUNT W/DIF F red cell distribution width 13.8 % 11.8-1 5.5 Not Available [facility] (Lab) [address] [facility] [place], [address], 06/18/2023 20:13:09 06/18/19 24 06/18/2023 CBC/C OMPLE TE BLD COUNT W/DIF F platelets 152 x10'3 /uL 150-40 0 Not Available [facility] (Lab) [address] [place], [address], 06/18/2023 20:13:09 06/18/19 24 06/18/2023 CBC/C OMPLE TE BLD COUNT W/DIF F mean platelet volume 12.6 fL 9.0-12 .4 high Not Available [facility] (Lab) [address] [place], [address], 06/18/2023 20:13:09 06/18/19 24 06/18/2023 CBC/C OMPLE TE BLD COUNT W/DIF F neutrophils 68.1 % 39.0-7 2.0 Not Available [facility] (Lab) [address] [place], [address], 06/18/2023 20:13:09 06/18/19 24 06/18/2023 CBC/C OMPLE TE BLD COUNT W/DIF F lymphocytes 17.8 % 16.0-4 7.0 Not Available [facility] (Lab) [address] [place], [address], 06/18/2023 20:13:09 06/18/19 24 06/18/2023 CBC/C OMPLE TE BLD COUNT W/DIF F monocytes 10.1 % 5.0-12 .0 Not Available [facility] (Lab) [address] [place], [address], 06/18/2023 20:13:09 06/18/19 24 06/18/2023 CBC/C OMPLE TE BLD COUNT W/DIF F eosinophils 3.2 % 1.0-7. 0 Not Available [facility] (Lab) [address] [place], [address], 06/18/2023 20:13:06/18/19 24 06/18/2023 CBC/C OMPLE TE BLD COUNT W/DIF F basophils 0.7 % 0.0-2. 0 Not Available [facility] (Lab) [address] [place], [address], 06/18/2023 20:13:06/18/19 24 06/18/2023 CBC/C OMPLE TE BLD COUNT W/DIF F immature granulocytes 0.1 % 0.00-0 .50 Not Available [facility] (Lab) [address] [place], [address], 06/18/2023 20:13:06/18/19 24 06/18/2023 CBC/C OMPLE TE BLD COUNT W/DIF F neutrophils, absolute count 4.93 x10'3 /uL 1.5-8. 0 Not Available [facility] (Lab) [address] [place], [address], 06/18/2023 20:13:06/18/19 24 06/18/2023 CBC/C OMPLE TE BLD COUNT W/DIF F lymphocytes, absolute count 1.29 x10'3 /uL 1.07-3 .43 Not Available [facility] (Lab) [address] [place], [address], 06/18/2023 20:13:09 06/18/19 24 06/18/2023 CBC/C OMPLE TE BLD COUNT W/DIF F monocytes, absolute count 0.73 x10'3 /uL 0.29-0 .99 Not Available [facility] (Lab) [address] [place], [address], 06/18/2023 20:13:09 06/18/19 24 06/18/2023 CBC/C OMPLE TE BLD COUNT W/DIF F eosinophils, absolute count 0.23 x10'3 /uL 0.02-0 .53 Not Available [facility] (Lab) [address] [place], [address], 06/18/2023 20:13:06/18/19 24 06/18/2023 CBC/C OMPLE TE BLD COUNT W/DIF F basophils, absolute count 0.05 x10'3 /uL 0.01-0 .08 Not Available [facility] (Lab) [address] [place], [address], 06/18/2023 20:13:09 06/18/19 24 06/18/2023 CBC/C OMPLE TE BLD COUNT W/DIF F immature granulocytes ,absolute 0.01 x10'3 /uL 0.00-0 .05 Not Available [facility] (Lab) [address] [place], [address], 06/18/2023 20:13:09 06/18/19 24 06/18/2023 CBC/C OMPLE TE BLD COUNT W/DIF F nucleated red blood cells 0.0 % -[address] [facility] (Lab) [address] [place], [address], 06/18/2023 20:13:09 06/18/19 24 06/18/2023 CBC/C OMPLE TE BLD COUNT W/DIF F NRBC# 0.00 x10'3 /uL Not Available [facility] (Lab) [address] [place], [address], 06/18/2023 20:13:09 06/18/19 24 06/18/2023 COMPR EHENS KATE METAB OLIC PANEL sodium 139 mmol/ L 137-14 5 Not Available [facility] (Lab) [address] [place], [address], 06/18/2023 20:17:46 06/18/19 24 06/18/2023 COMPR EHENS KATE METAB OLIC PANEL potassium 4.1 mmol/ L 3.5-5. 1 Not Available [facility] (Lab) [address] [place], [address], 06/18/2023 20:17:46 06/18/19 24 06/18/2023 COMPR EHENS KATE METAB OLIC PANEL chloride 106 mmol/ L 98-107 Not Available [facility] (Lab) [address] [place], [address], 06/18/2023 20:17:46 06/18/19 24 06/18/2023 COMPR EHENS KATE METAB OLIC PANEL carbon dioxide 26 mmol/ L 22-30 Not Available [facility] (Lab) [address] [place], [address], 06/18/2023 20:17:46 06/18/19 24 06/18/2023 COMPR EHENS KATE METAB OLIC PANEL anion gap 11.1 mmol/ L 14-22 low Not Available [facility] (Lab) [address] [place], [address], 06/18/2023 20:17:46 06/18/19 24 06/18/2023 COMPR EHENS KATE METAB OLIC PANEL glucose 108 mg/dL 70-99 high Not Available [facility] (Lab) [address] [place], [address], 06/18/2023 20:17:46 06/18/19 24 06/18/2023 COMPR EHENS KATE METAB OLIC PANEL BUN 25 mg/dL 8-19 high Not Available [facility] (Lab) [address] [place], [address], 06/18/2023 20:17:46 06/18/19 24 06/18/2023 COMPR EHENS KATE METAB OLIC PANEL creatinine 0.86 mg/dL 0.66-1 .25 Not Available [facility] (Lab) [address] [place], [address], 06/18/2023 20:17:46 06/18/19 24 06/18/2023 COMPR EHENS KATE METAB OLIC PANEL GFR >60 Refer ence Range : [place] ge GFR Healt hy Adult : >60 mL/mi n/1.7 3 m2 Chron ic Kidne y Disea se: 15-60 mL/mi n/1.7 3 m2 Kidne y Failu re: <15/m L/min /1.73 m2 www.n iddk. nih.g ov The MDRD study equat ion has not been valid ated in child raven <18 years of age; pregn ant women ; the elder ly >85 years of age; or in some racia l or ethni c subgr oups, such as Hispa nics. Outsi de the valid ated lidia eters , estim ated GFR is less accur ate, requi ring clini ginny judgm ent on a case- by-ca se basis . Clini ginny inter preta tion for other races and ages must be made by the clini jarad. The MDRD study equat ion has not been valid ated for the evalu ation of serum creat inine relat ed to nutri anita l statu s or medic ation usage . For perso ns <18 years of age, a pedia tric GFR calcu lator is avail able on the NKF websi te: https ://rosalva browne.elizabeth shea/pr susan ibrahimal s/kdo qi/gf r_cal culat or Not Available [facility] (Lab) [address] [place], [address], 06/18/2023 20:17:46 06/18/19 24 06/18/2023 COMPR EHENS KATE METAB OLIC PANEL alkaline phosphatase 69 U/L 38-126 Not Available [facility] (Lab) [address] [place], [address], 06/18/2023 20:17:46 06/18/19 24 06/18/2023 COMPR EHENS KATE METAB OLIC PANEL alanine aminotransfe rase 24 U/L 0-[address] [facility] (Lab) [address] [place], [address], 06/18/2023 20:17:46 06/18/19 24 06/18/2023 COMPR EHENS KATE METAB OLIC PANEL aspartate aminotransfe rase 36 U/L 15-[address] [facility] (Lab) [address] [place], [address], 06/18/2023 20:17:46 06/18/19 24 06/18/2023 COMPR EHENS KATE METAB OLIC PANEL bilirubin, total 0.60 mg/dL 0.20-1 .30 Not Available [facility] (Lab) [address] [place], [address], 06/18/2023 20:17:46 06/18/19 24 06/18/2023 COMPR EHENS KATE METAB OLIC PANEL calcium 9.7 mg/dL 8.4-10 .2 Not Available [facility] (Lab) [address] [place], [address], 06/18/2023 20:17:46 06/18/19 24 06/18/2023 COMPR EHENS KATE METAB OLIC PANEL total protein 6.8 g/dL 6.3-8. 2 Not Available [facility] (Lab) [address] [place], [address], 06/18/2023 20:17:46 06/18/19 24 06/18/2023 COMPR EHENS KATE METAB OLIC PANEL albumin 4.4 g/dL 3.0-4. 4 Not Available [facility] (Lab) [address] [place], [address], 06/18/2023 20:17:46 06/18/19 24 06/18/2023 COMPR EHENS KATE METAB OLIC PANEL globulin 2.4 g/dL 2.6-4. 2 low Not Available [facility] (Lab) [address] [place], [address], 06/18/2023 20:17:46 06/18/19 24 06/18/2023 COMPR EHENS KATE METAB OLIC PANEL A/G ratio 1.8 ratio 1.0-2. 0 Not Available [facility] (Lab) [address] [place], [address], 06/18/2023 20:17:46 06/18/19 24 06/18/2023 LIPID PANEL cholesterol 136 mg/dL 140-19 9 low NIH YESSI NSUS RECOM MENDA TION FOR KATHIA STERO L: ADULT CHILD LOW RISK: <200 <170 BORDE RLINE : <200- 239 ----- HIGH RISK: >240 >200 Not Available [facility] (Lab) [address] [place], [address], 06/18/2023 20:17:51 06/18/19 24 06/18/2023 LIPID PANEL triglyceride s 233 mg/dL 0-150 high NIH YESSI NSUS REPOR T RECOM MENDA TION FOR TRIGL YCERI CARISSA: ADULT CHILD LOW RISK: <150 ----- BODER LINE: 150-1 99 ----- HIGH RISK: >200 ----- Not Available [facility] (Lab) [address] [place], [address], 06/18/2023 20:17:51 06/18/19 24 06/18/2023 LIPID PANEL HDL cholesterol 43 mg/dL 40- Not Available [facility] (Lab) [address] [place], [address], 06/18/2023 20:17:51 06/18/19 24 06/18/2023 LIPID PANEL LDL cholesterol, calculated 46 mg/dL 0-130 NIH YESSI NSUS REPOR T RECOM MENDA TIONS FOR LDL: ADULT CHILD LOW RISK <130 <110 (OPTI MAL LDL) <100 ----- BORDE RLINE : 130-1 59 ----- HIGH RISK: >160 >130 A TRIGL YCERI DE RESUL T >400 INVAL IDATE S THE CALCU LATIO N FOR LDL FRACT IONAT ION - THE LDL RESUL T WILL NOT BE REPOR BRYN. Not Available [facility] (Lab) [address] [place], [address], 06/18/2023 20:17:51 06/18/19 24 06/18/2023 TSH thyroid-stim ulating hormone 1.730 uIU/m L 0.465- 4.680 Not Available [facility] (Lab) [address] [place], [address], 06/18/2023 21:28:06 06/18/19 24 06/18/2023 VITAM IN D 25-HY DROXY vd25oh 36.2 NG/mL 30-100 Vitam in D Statu s: Defic ient: <20 ng/mL Insuf ficie nt: 20-29 ng/mL Suffi cient : 30-10 0 ng/mL Not Available [facility] (Lab) [address] [place], [address], 06/18/2023 21:28:32 08/20/19 24 08/20/2023 HEMOG LOBIN A1C HA1C 5.9 % 4.0-6. 0 Diabe connor Scree dagoberto Crite nidhi: <5.7% Consi stent with absen ce of diabe connor 5.7-6 .4% Consi stent with incre ased risk for diabe connor (pred iabet es) >OR=6 .5% Consi stent with diabe connor REFER ENCE: Diabe connor Care 2016, 39(Pruitt ppl.1 ):s13 -s22 Not Available [facility] (Lab) [address], [place], [address], 08/20/2023 20:29:37 06/23/19 24 06/19/2023 XR, hand, 3 or more view No observ ation record ed. [email or web address] Not Available 2023 12:03:59 06/23/19 24 06/19/2023 CT, brain , w/o contr ast No observ ation record ed. [email or web address] Not Available 2023 12:03:59 07/17/19 24 07/16/2023 XR, hand, 3 or more view No observ ation record ed. [email or web address] Not Available 2023 12:03:58 Result Notes None recorded. Problems Name Problem SNOMED Code Status Onset Date Resolution Date Notes Provider Name and Address Organization Details Recorded Time Alzheimer's disease 44731792 Active 2022 Summer weber RMJoanna null, [place] [facility] 3 12:35:39 Hearing loss 75418182 Active 2022 Summer weber RMA null, [place] [facility] 3 12:35:16 Kidney disease 00858091 Active 2022 Brent Hines MD [address], [place], [address] [facility] [place] [facility] 3 08:42:32 Pain of left hip joint 9548198251871 00 Active 2022 DIEGO López null, [place] [facility] 3 11:05:47 Bilateral shoulder joint pain 0749304010815 9104 Active 2022 DIEGO López null, [place] [facility] 3 11:05:56 Arthritis 4140562 Active 2022 Blanca Nolasco LPN null, [place] [facility] 3 09:53:09 Chronic obstructive pulmonary disease 67076713 Active 2022 Blanca Nolasco LPN null, [place] [facility] 3 09:58:09 Cough 99880538 Active 2022 Blanca Nolasco LPN null, [place] [facility] 3 16:34:25 Overactive urinary bladder 236064304 Active 2023 Blanca Nolasco LPN null, [place] [facility] 4 14:14:49 Depressive disorder 07107887 Active 2023 Summer weber RMA null, [place] [facility] 4 15:30:08 Unsteady when walking 12182947 Active 2023 Brent Hines MD [address] [facility] [facility] [address], [place], [address] , [facility] 4 11:45:03 Seasonal allergy 270732317 Active 2023 Blanca Nolasco LPN null, [place] [facility] 4 12:07:14 Upper respiratory infection 44237878 Active 2023 Blanca Nolasco LPN null, [place] [facility] 4 15:24:29 Blood glucose outside reference range 437269728 Active 2023 Summer weber RMA null, [place] [facility] 4 11:46:02 Eruption 281104951 Active 2023 Blanca Nolasco LPN null, [place] [facility] 4 12:34:45 Diarrhea 58347551 Active 2023 Summer weber RMA null, [place] [facility] 4 16:45:08 Dry eyes 197947142 Active 2023 Elizabet Mueller MA null, [place] [facility] 4 12:35:28 Sinus bradycardia 96062219 Active 2023 Brent Hines MD [address] [facility], [place], [address], [place] [facility] 4 15:30:56 Laceration of skin 763813526 Active 2023 Brent Hines MD [address] [facility], [facility] [address], [place], [address], [facility] [place] [facility] 4 11:25:51 Repetitive self-excori ation 276588673 Active 2023 Brent Hines MD [address] [facility], [facility] [address], [place], [address], [facility] [place] [facility] 4 11:57:23 Neck pain 86526472 Active 2024 Blanca Nolasco LPN null, [place] [facility] [place] [facility] 5 14:33:37 Irritable bowel syndrome 00266285 Active 2020 Summer weber, RMA null, [place] [facility] [place] [facility] 3 12:35:06 Backache 364197051 Active 2020 Summer Strosariobe an, RMA null, [place] [facility] [place] [facility] 3 12:35:32 Spinal stenosis of lumbar region 91175925 Active Summer Stjamila an, RMA null, [place] [facility] [place] [facility] 3 12:34:55 Asthma 887993797 Active 2020 Summer Strosariobe an, RMA null, [place] [facility] 3 12:35:35 Gastroesoph ageal reflux disease 542767430 Active 2020 Summer Stufflebe an, RMA null, [place] [facility] [place] [facility] 3 12:35:18 Cervical spondylosis without myelopathy 635002342 Active Summer Stufflebe an, RMA null, [place] [facility] [place] [facility] 3 12:35:31 Adult health examination Active 2020 Summer weber, RMA null, [place] [facility] [place] [facility] 3 12:34:50 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 Summer weber RMA null, [facility] 3 12:35:05 Vitamin D deficiency 39849135 Active 2020 Summer weber, RMA null, [facility] 3 12:34:53 Neuropathy 787217480 Active 2020 Summer weber RMA null, [facility] 3 12:35:02 Osteoarthri tis 933523279 Active 2020 Summer weber, RMA null, [facility] 3 12:35:00 Hypothyroid ism 43821760 Active 2020 Summer weber RMA null, [facility] 3 12:35:08 Hypokalemia 55672702 Active 2020 Summer weber RMA null, [facility] 3 12:35:10 Anxiety 80604442 Active 2020 Summer weber RMA null, [facility] 3 12:35:36 Hyperlipide ale 41593222 Active 2020 Summer weber, RMA null, [facility] 3 12:35:13 Essential hypertensio n 81915988 Active 2020 Summer weber RMA null, [facility] 3 12:35:20 Allergic rhinitis 54680509 Active 2020 Summer weber, RMA null, [facility] 3 12:35:41 Osteoporosi s 47624087 Active 2020 Summer Quintanilla an, RMA null, [facility] 3 12:34:57 Degeneratio n of cervical interverteb ral disc 87402477 Active Summer DIEGO Preciado, [facility] [employer] [facility] 12:35:29 Diabetes mellitus 55181256 Active 2020 DIEGO Patterson, [facility] [employer] [facility] 12:35:22 Problem Notes None recorded. Procedures Surgical History Date Name Laterality Status Provider Name and Address Organization Details Recorded Time 06/18/19 24 Medicare Wellness CPT Code, subsequent completed Stacia Dominguez RN [facility] 06/18/2023 11:16:55 06/11/19 23 Medicare Wellness CPT Code, subsequent completed Ewa Alfonso RN [facility] 06/10/2022 12:38:04 06/23/19 21 Most Recent Bone Density completed Not Available [facility] 04/10/2022 04:41:35 Orthopedic Surgery completed Not Available [facility] 04/10/2022 04:41:40 cholecystectomy completed Not Available [facility] 04/10/2022 04:41:40 Hysterectomy completed Not Available [facility] 04/10/2022 04:41:40 Imaging Results Imaging Date Name Status LastModified by Organiz ation Details LastModified Time 06/19/2023 XR, hand, 3 or more view completed Information not available 09/15/2023 12:03:59 06/19/2023 CT, brain, w/o contrast completed Information not available 09/15/2023 12:03:59 07/16/2023 XR, hand, 3 or more view completed Information not available 09/15/2023 12:03:58 Procedure Notes None recorded. Medical Equipment None Reported. Allergies Allergen ID Allergen Name Allergen Category Reaction Reaction Severity Criticality Documentation Date Start Date Code Code System Note Provider Name and Address Organization Details Recorded Time 89902 memantine medicatio n headache Not available Not available 06/18/2023 6719 RxNorm Brent Hines MD [address] [place] [address], [place] [address], [place], [address] [place] [address] [employer] [facility] 4 11:36:06 8708 Zofran medicatio n Not available Not available Not available 04/10/2022 44277 RxNorm Not Available [facility] 3 05:06:08 8709 verapamil medicatio n Not available Not available Not available 04/10/2022 65642 RxNorm Not Available [facility] 3 05:06:08 8710 tramadol medicatio n Not available Not available Not available 04/10/2022 02453 RxNorm Not Available [facility] 3 05:06:09 8711 Tenex medicatio n Not available Not available Not available 04/10/2022 43037 RxNorm Not Available [facility] 3 05:06:09 8712 Substance with sulfonami de structure and antibacte rial mechanism of action (substanc e) medicatio n Not available Not available Not available 04/10/2022 12609 8003 SNOMED Not Available [facility] 3 05:06:09 8713 Product containin g penicilli n (product) medicatio n Not available Not available Not available 04/10/2022 75869 8001 SNOMED Not Available [facility] 3 05:06:09 8714 latex environme nt,medica tion rash Not available Not available 04/10/2022 80378 91 RxNorm Not Available [facility] 3 05:06:09 8715 duloxetin e medicatio n nausea Not available Not available 04/10/2022 05318 RxNorm dizzi ness Not Available [facility] 3 05:06:09 8716 diclofena c Not available nausea Not available Not available 04/10/2022 3355 RxNorm Not Available [facility] 3 05:06:09 8717 Celexa medicatio n Not available Not available Not available 04/10/2022 76294 8 RxNorm heada ce, weigh t loss Not Available [facility] 3 05:06:09 Medications Name Sig Start Date Stop Date Status Note LastModified by Organization Details LastModified Time Prescript ion - Change 06/17 completed Changed diclofen ac to BID Not Available Not Available Not Available multivita min tablet Take 1 tablet by oral route. active Not Available Not Available No t Available losartan 50 mg tablet Take 1 tablet every day by oral route. 11/13 completed increase d to 100mg daily recheck 2 week Not Available Not Available Not Available Refresh Tears 0.5 % eye drops APPLY 1 DROP EACH EYE TWICE A DAY BY OPHTHALM IC ROUTE FOR DRY EYES. active Not Available Not Available No t Available quetiapin e 25 mg tablet Take 1 tablet twice a day by oral route. active Not Available Not Available No t Available furosemid e 40 mg tablet Take 1 tablet every day by oral route in the morning. active Not Available Not Available No t Available monteluka st 5 mg chewable tablet 07/12 completed Not Available Not Available Not Available terbinafi ne HCl 1 % topical cream 09/14 completed Not Available Not Available Not Available potassium chloride ER 10 mEq capsule,e xtended release 11/13 completed Not Available Not Available Not Available carvedilo l 6.25 mg tablet TAKE 1 TABLET BY MOUTH TWICE A DAY active Not Available Not Available No t Available paroxetin e 10 mg tablet Take 1 tablet every day by oral route in the evening. 07/03 completed Not Available Not Available Not Available cefuroxim e axetil 250 mg tablet TK 1 T PO BID FOR 14 DAYS 09/28 completed Not Available Not Available Not Available carvedilo l 12.5 mg tablet 2 tab bid 11/23 completed Not Available Not Available Not Available donepezil 5 mg tablet Take 1 tablet every day by oral route. 06/17 completed Not Available Not Available Not Available ketoconaz ole 2 % shampoo 1 ZULEMA TOPICAL 3X/WK,X3 0 DAY(S) 09/14 completed Not Available Not Available Not Available albuterol sulfate 2.5 mg/3 mL (0.083 %) solution for nebulizat ion 2-4 times daily active Not Available Not Available No t Available loperamid e 2 mg capsule Take 2 capsules every day by oral route in the morning for 90 days. active Not Available Not Available No t Available trazodone 50 mg tablet Take 1 tablet every day by oral route as needed. 10/11 completed Not Available Not Available Not Available felodipin e ER 2.5 mg tablet,ex tended release 24 hr 07/15 completed Not Available Not Available Not Available cetirizin e 10 mg tablet Take 1 tablet every day by oral route X 1 month 11/12 completed Not Available Not Available Not Available oxybutyni n chloride ER 10 mg tablet,ex tended release 24 hr Take 1 tablet every day by oral route in the morning. active Not Available Not Available No t Available azithromy leobardo 250 mg tablet TAKE 2 TABLETS (500 MG) BY ORAL ROUTE ONCE DAILY FOR 1 DAY THEN 1 TABLET (250 MG) BY ORAL ROUTE ONCE DAILY FOR 4 DAYS 08/18 completed Not Available Not Available Not Available benzonata te 200 mg capsule Take 1 capsule 3 times a day by oral route as needed. 08/18 completed Not Available Not Available Not Available citalopra m 10 mg tablet 07/12 completed Not Available Not Available Not Available hydrocodo ne 5 mg-acetam inophen 325 mg tablet 07/12 completed Not Available Not Available Not Available donepezil 10 mg tablet Take 1 tablet every day by oral route at bedtime. active Not Available Not Available No t Available meloxicam 15 mg tablet Take 1 tablet every day PRN 07/15 completed Mobic1 tab daily Not Available Not Available Not Available phenazopy ridine 200 mg tablet TAKE 1 TABLET BY MOUTH THREE TIMES A DAY NEEDED FOR PAIN 11/13 completed Not Available Not Available Not Available prednison e 20 mg tablet TAKE 1 TABLET BY MOUTH TWICE A DAY FOR 5 DAYS 07/15 completed Not Available Not Available Not Available felodipin e ER 5 mg tablet,ex tended release 24 hr Take 1 tablet every day by oral route. 08/20 completed Not Available Not Available Not Available Synthroid 100 mcg tablet Take 1 tablet every day in the morning by oral route for 90 days. active Not Available Not Available No t Available bacitraci n 500 unit/gram topical ointment APPLY TO AFFECTED AREA TWICE A DAY active Not Available Not Available No t Available potassium chloride ER 10 mEq tablet,ex tended release Take 1 tablet every day by oral route as directed for 90 days. 05/08 completed Not Available Not Available Not Available ciproflox acin 250 mg tablet TAKE 1 TABLET BY MOUTH EVERY 12 HOURS 05/08 completed Not Available Not Available Not Available allopurin ol 100 mg tablet Take 1 tablet every day by oral route in the morning. active Not Available Not Available No t Available aspirin 81 mg tablet,de layed release Take 1 tablet every day by oral route. active Not Available Not Available No t Available acetamino phen ER 650 mg tablet,ex tended release Take 1 tablet twice a day by oral route. active Not Available Not Available No t Available terbinafi ne HCl 250 mg tablet TAKE 1 TABLET BY MOUTH ONCE DAILY 12/02 completed Not Available Not Available Not Available alprazola m 0.5 mg tablet TAKE 1 TABLET BY THREE TIMES A DAY NEEDED FOR ANXIETY 07/15 completed Not Available Not Available Not Available prednisol one acetate 1 % [facility] PLEASE SEE ATTACHED FOR DETAILED DIRECTIO NS active Not Available Not Available No t Available Fosamax 70 mg tablet Take 1 tablet every week by oral route. 07/15 completed Not Available Not Available Not Available amitripty line 10 mg tablet Take 1 tablet every day by oral route. 07/15 completed Not Available Not Available Not Available cephalexi n 500 mg capsule TAKE 1 CAPSULE BY MOUTH EVERY 12 HOURS FOR 7 DAYS 09/23 completed Not Available Not Available Not Available metformin 1,000 mg tablet Take 1 tablet twice a day by oral route for [address] Paul taveras- Not Available Not Available Not Available esomepraz ole magnesium 40 mg capsule,d elayed release 07/12 completed Not Available Not Available Not Available fluoxetin e 10 mg capsule Take 1 capsule every day by oral route. 08/10 completed Not Available Not Available Not Available gabapenti n 300 mg capsule 07/12 completed Not Available Not Available Not Available omeprazol e 20 mg capsule,d elayed release Take 1 capsule every day by oral route. 11/13 completed Not Available Not Available Not Available felodipin e ER 10 mg tablet,ex tended release 24 hr Take 1 tablet every day by oral route. 12/16 completed Not Available Not Available Not Available monteluka st 10 mg tablet Take 1 tablet daily by oral route PRN active Not Available Not Available No t Available Longs Adult Low Strength ASA 81 mg tablet,de layed release Take 1 tablet every day by oral route. 11/13 completed Not Available Not Available Not Available ergocalci ferol (vitamin D2) 1,250 mcg (50,000 unit) capsule Take 1 capsule every week by oral route. 02/12 completed Not Available Not Available Not Available epinephri ne 0.3 mg/0.3 mL injection , auto-inje ctor Take 1 auto by injectio n route as needed. 12/02 completed Not Available Not Available Not Available levofloxa leobardo 500 mg tablet TAKE 1 TABLET BY MOUTH DAILY FOR 5 DAYS 05/08 completed Not Available Not Available Not Available zolpidem 10 mg tablet TAKE 1 TABLET BY MOUTH ONCE FOR OVERNIGH T SLEEP EVAL 05/15 completed Not Available Not Available Not Available methylpre dnisolone 4 mg tablets in a dose pack TAKE BY MOUTH DIRECTED ON INSIDE OF PACKAGE 02/21 completed Not Available Not Available Not Available cefdinir 300 mg capsule TAKE 1 CAPSULE BY MOUTH TWICE A DAY 05/08 completed Not Available Not Available Not Available losartan 100 mg tablet Take 1 tablet every day by oral route. active Not Available Not Available No t Available fluoxetin e 20 mg capsule Take 1 capsule every day by oral route. 10/11 completed Not Available Not Available Not Available fluticaso ne propionat e 50 mcg/actua tion nasal spray,olesya pension 09/23 completed pulm on astelin no need for flonase Not Available Not Available Not Available calcitrio l 0.25 mcg capsule Take 1 capsule every day by oral route in the morning. active Not Available Not Available No t Available Mucinex 600 mg tablet, extended release 07/15 completed Not Available Not Available Not Available escitalop jude 10 mg tablet 07/15 completed Not Available Not Available Not Available escitalop jude 20 mg tablet Take 1 tablet every day by oral route at bedtime. active Not Available Not Available No t Available Asprin Ec Low Dose 81 mg tablet,de layed release Take 1 tablet every day by oral route. 12/[address] Hines Not Available Not Available Not Available moxifloxa leobardo 0.5 % eye drops 07/12 completed Not Available Not Available Not Available cholestyr amine (with sugar) 4 gram oral powder Take 1 scoop every day by oral route. 07/15 completed Not Available Not Available Not Available rosuvasta tin 5 mg tablet 07/15 completed Not Available Not Available Not Available rosuvasta tin 10 mg tablet Take 1 tablet every day by oral route. active Not Available Not Available No t Available rosuvasta tin 40 mg tablet Take 1 tablet by oral route. 05/15 completed T [place] Not Available Not Available Not Available memantine 10 mg tablet TAKE 1 TABLET BY MOUTH TWICE A DAY 07/15 completed Not Available Not Available Not Available memantine 5 mg tablet 06/17 completed Not Available Not Available Not Available Avastin 25 mg/mL intraveno us solution Inject by intraven ous route. 07/15 completed eyelea-- --is given once a month from Dr. Ho (eye surgeon) Not Available Not Available Not Available duloxetin e 20 mg capsule,d elayed release Take 1 capsule every day by oral route. active Not Available Not Available No t Available EpiPen uud 11/20 completed pulm Not Available Not Available Not Available multivita min 12/[address] Hines Not Available Not Available Not Available Mucinex 03/02 completed as needed Not Available Not Available Not Available PreserVis ion AREDS 11/16 completed Eye MD Not Available Not Available Not Available ProAir HFA 90 mcg/actua tion aerosol inhaler Inhale 2 puffs 3 times a day by inhalati on route for 7 days. 2023 active Not Available Not Available Not Avai lable fluticaso ne propionat e 230 mcg-salme terol 21 mcg/actua tion HFA inhaler 2 puffs bid 11/20 completed Not Available Not Available Not Available Janumet 50 mg-500 mg tablet 07/11 completed Not Available Not Available Not Available Janumet 50 mg-1,000 mg tablet 07/11 completed Not Available Not Available Not Available Cholestyr amine Light 4 gram oral powder 07/15 completed Not Available Not Available Not Available rivastigm ine 4.6 mg/24 hour transderm al patch APPLY 1 PATCH TRANSDER ROSALINA DAILY 05/15 completed Not Available Not Available Not Available diclofena c 1 % topical gel APPLY 2 GRAMS TO THE AFFECTED AREA(S) BY TOPICAL ROUTE 4 TIMES PER DAY active Not Available Not Available No t Available Besivance 0.6 % eye drops,olesya pension 07/12 completed Not Available Not Available Not Available Combivent Respimat 20 mcg-100 mcg/actua tion solution for inhalatio n 11/20 completed Not Available Not Available Not Available Ilevro 0.3 % eye drops,olesya pension active Not Available Not Available Not Available PreserVis ion AREDS-2 take 1 capsule twice daily active Not Available Not Available No t Available Caltrate- D3 Plus Minerals 300 mg-20 mcg-25 mg-0.5 mg tablet Take 1-2 daily as on packet 01/[address] Hines Not Available Not Available Not Available Nucala 100 mg subcutane ous solution 04/06 completed Not Available Not Available Not Available Nucala 04/06 completed once a month RN for asthma Not Available Not Available Not Available Trelegy Ellipta 100 mcg-62.5 mcg-25 mcg powder for inhalatio n INHALE 1 PUFF EVERY DAY active Not Available Not Available No t Available Trelegy Ellipta uud 12/02 completed pulm Not Available Not Available Not Available Shingrix (PF) 50 mcg/0.5 mL intramusc ular suspensio n, kit PHARMACI ST ADMINIST ERED IMMUNIZA TION ADMINIST ERED AT TIME OF DISPENSI NG 07/11 completed Not Available Not Available Not Available Nucala 100 mg/mL subcutane ous auto-inje ctor 11/13 completed Pulmonar y Not Available Not Available Not Available Fluad 65yr up(PF)45 mcg(15 mcgx3)/0. 5 mL intramusc ular syringe active Not Available Not Available Not Available Fluad Quad (65yr up)(PF) 60 mcg (15 mcg x 4)/0.5mL IM syringe active Not Available Not Available Not Available Gemtesa 75 mg tablet Take 1 tablet every day by oral route. 02/17 completed Not Available Not Available Not Available AsperFlex Max 4 %-1 % topical patch Apply 1 patch twice a day by topical route. 2024 active Not Available Not Available Not Avai lable Astepro Allergy 205.5 mcg (0.15 %) nasal spray [place] 1 spray twice a day by intranas al route. 2023 active Not Available Not Available Not Avai lable Caltrate- D3 Plus Minerals 600 mg-20 mcg-50 mg-1 mg tablet active Not Available Not Available Not Available Vitals Date Recorded Body height Body mass index (BMI) Body weight Body temperature Heart rate Oxygen saturation Oxygen saturation in Arterial blood by Pulse oximetry Systolic blood pressure Diastolic blood pressure Provider Name and Address Organization Details Last Updated DateTime 4 170.18 cm 32.2 kg/m2 76055.5 1 g 97.6 [degF] 58 /min 98 % 98 % 116 mm[Hg] 80 mm[Hg] Pao Alaniz Joanna [facility] 4 11:31:30 Date Recorded Body height Body mass index (BMI) Body weight Body temperature Oxygen saturation Oxygen saturation in Arterial blood by Pulse oximetry Heart rate Systolic blood pressure Diastolic blood pressure Provider Name and Address Organization Details Last Updated DateTime 4 170.18 cm 30.5 kg/m2 05520.5 1 g 98.4 [degF] 97 % 97 % 60 /min 124 mm[Hg] 76 mm[Hg] Natalie Garza [facility] 4 11:34:23 Date Recorded Body height Body mass index (BMI) Body weight Body temperature Heart rate Oxygen saturation Oxygen saturation in Arterial blood by Pulse oximetry Systolic blood pressure Diastolic blood pressure Provider Name and Address Organization Details Last Updated DateTime 4 170.18 cm 30.2 kg/m2 39351.3 3 g 97.4 [degF] 51 /min 97 % 97 % 98 mm[Hg] 70 mm[Hg] DIEGO Patterson [facility] 4 15:14:00 Date Recorded Body height Body mass index (BMI) Body weight Body temperature Heart rate Oxygen saturation Oxygen saturation in Arterial blood by Pulse oximetry Systolic blood pressure Diastolic blood pressure Provider Name and Address Organization Details Last Updated DateTime 4 170.18 cm 30.4 kg/m2 96734.9 2 g 96.8 [degF] 59 /min 93 % 93 % 94 mm[Hg] 58 mm[Hg] DIEGO Patterson [facility] [employer] [facility] 4 11:01:43 Date Recorded Body height Body mass index (BMI) Body weight Body temperature Heart rate Oxygen saturation Oxygen saturation in Arterial blood by Pulse oximetry Systolic blood pressure Diastolic blood pressure Provider Name and Address Organization Details Last Updated DateTime 4 170.18 cm 30.1 kg/m2 11841.7 4 g 98.8 [degF] 59 /min 94 % 94 % 132 mm[Hg] 80 mm[Hg] DIEGO Patterson [place] [facility] [employer] [facility] 4 11:23:42 Social History Question Answer Notes LastModified by Organizat ion Details LastModified Time Tobacco Smoking Status Former Smoker Quit in 1997 Roseline Keith wolf [facility] [employer] [facility] 11/22/2022 09:54:27 Do You Have An Advance Directive? Yes [id number] Information not available 04/10/2022 What Is Your Level Of Alcohol Consumption? None [email or web address] Information not available 06/18/2023 Are You Blind Or Do You Have Difficulty Seeing? No Information not available 11/22/2022 What Is Your Level Of Caffeine Consumption? Moderate [id number] Information not available 04/10/2022 How Much Tobacco Do You Chew? None [id number] Information not available 04/10/2022 Are You Deaf Or Do You Have Serious Difficulty Hearing? No Information not available 11/22/2022 What Type Of Diet Are You Following? REGULAR [id number] Information not available 04/10/2022 Which Illicit Or Recreational Drugs Have You Used? Medical Marijuana Information not available 11/22/2022 Do You Or Have You Ever Used E-cigarettes Or Vape? Never Used Electronic Cigarettes Information not available 11/22/2022 What Is Your Occupation? Retired Information not available 11/22/2022 What Is The Fluoride Status Of Your Home? Fluoridated Information not available 11/22/2022 When Did You Quit Smoking? 16+yearssincel astcigarette Information not available 11/22/2022 Are There Any Guns Present In Your Home? Yes Information not available 11/22/2022 Where Do You Live? Apartment Information not available 11/22/2022 Presence Of Domestic Violence No [email or web address] Information not available 06/10/2022 Are You Able To Care For Yourself? Yes [email or web address] Information not available 06/10/2022 Are You Blind Or Do Yo Have Difficulty Seeing? No [email or web address] Information not available 06/10/2022 Are You Deaf Or Do You Have Serious Difficulty Hearing? Yes Wears Aids Information not available 06/10/2022 General Stress Level? Moderate [email or web address] Information not available 06/10/2022 Live Alone Of With Others? Alone Moving Into [facility] [email or web address] Information not available 06/10/2022 What Was The Date Of Your Most Recent Tobacco Screening? 06/18/2023 [email or web address] Information not available 06/18/2023 Do You Use Your Seat Belt Or Car Seat Routinely? Yes [email or web address] Information not available 06/18/2023 Do You Have Smoke And Carbon Monoxide Detectors In Your Home? Yes Information not available 11/22/2022 At What Age Did You Start Smoking Tobacco? 29 Information not available 11/22/2022 Do You Or Have You Ever Used Smokeless Tobacco? Never Used Smokeless Tobacco [id number] Information not available 04/10/2022 How Much Tobacco Do You Smoke? 0.5 PPD [id number] Information not available 04/10/2022 Do You Use Sunscreen Routinely? Yes Information not available 11/22/2022 Sex: Female Functional Status Question Answer Note LastModified by Organizat ion Details LastModified Time Do you have difficulty walking or climbing stairs? No Information not available 11/22/2022 Do you have difficulty doing errands alone? No Information not available 11/22/2022 Do you have difficulty dressing or bathing? No Information not available 11/22/2022 What is your exercise level? Occasional [id number] Information not available 04/10/2022 Mental Status Question Answer Note LastModified by Organization D etails LastModified Time Do you have difficulty concentrating, remembering or making decisions? No Information no t available 11/22/2022 Family History Nothing Reported. Medical History No medical history recorded. Gynecological History Statement/Question Response Date of Last Pap Date of Last Mammogram 06/22/2020 Date of Last Colonoscopy Most Recent Bone Density 06/22/2020 Obstetrics History GPAL:G 0 P 0 0 0 0 Immunizations Vaccine Type Date Status Note Provider Nam e and Address Organization Details Recorded Time influenza, unspecified formulation 7 completed Grecia Arvizu null, [facility] 10/24/2022 08:58:54 influenza, unspecified formulation 8 completed Grecia Arvizu null, [facility] 10/24/2022 08:59:17 influenza, unspecified formulation 2 completed Grecia Arvizu null, [facility] 10/24/2022 08:59:35 Hep A, unspecified formulation 7 completed [facility] 10/24/2022 09:01:33 Hep A, unspecified formulation 8 completed [facility] 10/24/2022 09:12:16 Hep B, unspecified formulation 7 completed [facility] 10/24/2022 09:12:43 Hep B, unspecified formulation 8 completed [facility] 10/24/2022 09:13:05 pneumococcal, unspecified formulation 5 completed [facility] 10/24/2022 09:13:46 pneumococcal, unspecified formulation 8 completed [facility] 10/24/2022 09:14:11 pneumococcal, unspecified formulation 6 completed [facility] 10/24/2022 09:14:31 pneumococcal, unspecified formulation 2 completed Grecia Nolberto null, [facility] 10/24/2022 09:14:46 Tdap 7 completed [facility] 10/24/2022 09:15:41 Tdap 1 completed Grecia Arvizu null, [facility] 10/24/2022 09:15:54 zoster, unspecified formulation 6 completed Grecia Arvizu null, [facility] 10/24/2022 09:16:33 zoster, unspecified formulation 7 completed Grecia Arvizu null, [facility] 10/24/2022 09:16:45 zoster, unspecified formulation 9 completed Grecia Arvizu null, [facility] 10/24/2022 09:17:04 SARS-COV-2 (COVID-19) vaccine, UNSPECIFIED 1 completed Not Available [facility] 04/10/2022 05:05:42 SARS-COV-2 (COVID-19) vaccine, UNSPECIFIED 1 completed Not Available [facility] 04/10/2022 05:05:42 Influenza, split virus, quadrivalent, preservative 0 completed Not Available [facility] 04/10/2022 05:05:42 Influenza, split virus, quadrivalent, preservative 9 completed Not Available [facility] 04/10/2022 05:05:42 zoster, unspecified formulation 9 completed Not Available [facility] 04/10/2022 05:05:42 Past Encounters Encounter ID Performer Location Encounter Start Date Encounter Closed Date Diagnosis/Indication Diagnosis SNOMED-CT Code Diagnosis ICD10 Code Diagnosis Note [id number] [facility] [address] [place] [address] 2020 00:00:00 2020 12:38:44 [id number] [facility] [address] [place] [address] 08/10/2020 00:00:00 08/10/2020 13:46:53 [id number] Brent Hines MD [facility] [address] 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 [address] 06/10/2022 11:52:11 06/10/2022 13:04:30 Adult health examination 671304731 Z00.00 Screening for disorder 958023930 Z13.9 Essential hypertension 72494411 I10 STOP Felodipine , change Losartan 50 mg qd Diabetes mellitus 582637 09 E11.9 under control, Degenerati on of cervical intervertebral disc 47024364 M50.30 meds help Spinal héctor nosis of lumbar region 70866045 M48.061 not seeing pain management Neuropathy 508552423 G62 .9 mild symptoms, no meds needed Osteoarthritis 885021347 M19.90 on meloxicam and voltaren gel Asthma 894827751 J45.90 9 under control with inhalers Allergic rhinitis 221846 04 J30.9 on zyrtec and flonase Malignant melanoma of eye 856644791 C69.90 seeing ophthalmol ogy Irritable bowel syndrome 63978823 K58.9 meds help Hypothyroidism 97341032 E03.9 labs to be reviewed Hyperlipidemia 54062889 E78.5 stable Gastroesop hageal reflux disease 722960715 K21.9 meds help Osteoporosis 11802070 M8 1.0 not on meds, need to review dexa Vitamin D deficiency 347 21750 E55.9 on otc Alzheimer's disease 2692 9004 G30.9 on meds Hearing loss 41589348 H9 1.93 hearing aids [id number] Brent Hines MD [facility] [address] [place] [address] 07/15/2022 14:00:28 07/15/2022 14:49:24 Essential hypertension 77150820 I10 better Kidney disease 41874388 N08 seeing nephrology [id number] Brent Hines MD [facility] [address] [facility] [place] [address] 08/21/2022 10:44:12 08/21/2022 11:24:30 Essential hypertension 05804119 I10 under control, no need to monitor at home [id number] Brent Hines MD [facility] [address] [facility] [place] [address] 09/20/2022 11:31:20 09/20/2022 12:51:12 Adult health examination 138815023 Z00.00 Essential hypertension 04931286 I10 watch Diabetes mellitus 321639 09 E11.9 under control, no meds , keep watching diet Degenerati on of cervical intervertebral disc 45729305 M50.30 meds help Spinal héctor nosis of lumbar region 23002597 M48.061 seen pain management Neuropathy 246626337 G62 .9 mild symptoms, no meds needed Osteoarthritis 774282495 M19.90 on meloxicam and voltaren gel Asthma 963799659 J45.90 9 under control with inhalers Allergic rhinitis 924711 04 J30.9 on zyrtec and flonase Malignant melanoma of eye 945574874 C69.90 seeing ophthalmol ogy Irritable bowel syndrome 32864708 K58.9 meds help Hypothyroidism 85665518 E03.9 stable Hyperlipidemia 90220988 E78.5 stable Gastroesop hageal reflux disease 844338849 K21.9 meds help Osteoporosis 12778704 M8 1.0 Vitamin D deficiency 347 26945 E55.9 on otc Alzheimer's disease 2692 9004 G30.9 mild, on meds Hearing loss 64019717 H9 1.93 hearing aids Kidney disease 12926598 N08 seeing nephrology [id number] Brent Hines MD [facility] Internal [facility] [address] [place] [address] 10/28/2022 08:23:53 10/28/2022 09:53:01 Essential hypertension 13758507 I10 add Felopdipin e which she was taking in the past and bp was good [id number] Brent Hines MD [facility] Internal [address] [place] [place] [address] 11/22/2022 09:52:55 11/22/2022 10:28:16 Essential hypertension 70334745 I10 under good control [id number] Brent Hines MD [facility] Internal [facility] [address] [place] [address] 02/21/2023 11:51:01 02/21/2023 13:09:17 Adult health examination 941699109 Z00.00 Essential hypertension 85032470 I10 better Diabetes mellitus 019177 09 E11.9 under control, no meds , keep watching diet Degenerati on of cervical intervertebral disc 33695058 M50.30 meds help Spinal héctor nosis of lumbar region 34647287 M48.061 seen pain management Neuropathy 058471851 G62 .9 mild symptoms, no meds needed Osteoarthritis 770800230 M19.90 voltaren gel Asthma 377832224 J45.90 9 under control with inhalers Allergic rhinitis 799557 04 J30.9 on zyrtec and flonase Malignant melanoma of eye 586637046 C69.90 seeing ophthalmol ogy Irritable bowel syndrome 42429204 K58.9 meds help Hypothyroidism 78390413 E03.9 stable Hyperlipidemia 19653462 E78.5 stable Gastroesop hageal reflux disease [id number] K21.9 meds help Osteoporosis 55929424 M8 1.0 Vitamin D deficiency 347 83602 E55.9 on otc Alzheimer's disease 2692 9004 G30.9 mild, on meds Hearing loss 19756184 H9 1.93 hearing aids Kidney disease 20317771 N08 seeing nephrology , labs have improved, no need to f/u, pt does not want to [id number] Brent Hines MD [facility] Internal Med [address] [place] [address] 06/18/2023 11:04:04 06/18/2023 12:07:30 Adult health examination [id number] Z00.00 Colonoscop y-Mammogra m- 06/22/2020 Dexa- 06/22/2020 FLU- Essential hypertension 87107770 I10 under control Diabetes mellitus 387301 09 E11.9 under control, no meds , keep watching diet Degenerati on of cervical intervertebral disc 19110786 M50.30 meds help Spinal héctor nosis of lumbar region 88545994 M48.061 seen pain management Neuropathy 715033688 G62 .9 mild symptoms, no meds needed Osteoarthritis 254277160 M19.90 voltaren gel Asthma 601492922 J45.90 9 under control with inhalers Allergic rhinitis 840087 04 J30.9 on zyrtec and flonase Malignant melanoma of eye 980934343 C69.90 seeing ophthalmol ogy Irritable bowel syndrome 43746233 K58.9 on imodium Hypothyroidism 96793071 E03.9 stable Hyperlipidemia 40861166 E78.5 stable Gastroesop hageal reflux disease 619144549 K21.9 meds help Osteoporosis 98389023 M8 1.0 caltrate Vitamin D deficiency 347 30417 E55.9 on otc Alzheimer's disease 2692 9004 G30.9 mild, on meds Hearing loss 58903577 H9 1.93 hearing aids Kidney disease 47035105 N08 seeing nephrology , labs have improved, no need to f/u, pt does not want to Screening for disorder 970451225 Z13.9 Unsteady when walking 22 631402 R26.89 [id number] Madelaine Wilson NP [facility] Internal [address] [place] [address] 06/27/2023 11:26:31 06/27/2023 11:54:59 Cough 63537039 R05.9 she was seen by dr hines recently for uri and she still has lingering coughwe discussed using her albuterol inhaler and also trying tesselon perls Fall W19.XXXA she fell last week and had to go to ER, her hand is broken and she has already seen ortho, she has a cast on right handshe forgot to tell ortho her left knee was bruised but she is walking ok and does not hurther CT was negative for head injuryshe will f/u as planned with dr hines and she is scheduled to see ortho in 3 weeks.exam today benign [id number] Brent Hines MD [facility] [address] [place] [address] 09/15/2023 11:24:55 09/15/2023 12:14:30 Adult health examination [id number] Z00.00 Colonoscop y-Mammogra m- 06/22/2020 Dexa- 06/22/2020 FLU- Essential hypertension 61432285 I10 under control Diabetes mellitus 163362 09 E11.9 under control, no meds , keep watching diet, no meds needed Degenerati on of cervical intervertebral disc 95190940 M50.30 meds help Spinal héctor nosis of lumbar region 81108281 M48.061 seen pain management Neuropathy 404386974 G62 .9 mild symptoms, no meds needed Osteoarthritis 378374238 M19.90 voltaren gel Asthma 342573829 J45.90 9 under control with inhalers Allergic rhinitis 909321 04 J30.9 on zyrtec and flonase Malignant melanoma of eye 067091747 C69.90 seeing ophthalmol ogy Irritable bowel syndrome 91979914 K58.9 meds help Hypothyroidism 17336835 E03.9 stable Hyperlipidemia 08388406 E78.5 stable Gastroesop hageal reflux disease 216927320 K21.9 meds help Osteoporosis 81197599 M8 1.0 caltrate Vitamin D deficiency 347 31040 E55.9 on otc Alzheimer's disease 2692 9004 G30.9 mild, on meds Hearing loss 35321865 H9 1.93 hearing aids Kidney disease 60954856 N08 improved [id number] Brent Hines MD [facility] Internal Med [facility] [address] [place] [address] 11/24/2023 15:09:32 11/24/2023 15:41:41 Sinus bradycardia 32292815 R00.1 decrease the dose of carvedilol [id number] Brent Hines MD [facility] Internal [address] [place] [address] 12/17/2023 10:53:53 12/17/2023 11:25:45 Essential hypertension 20459803 I10 low bpstop Felodipine HR better Laceration of skin 44920 5007 T14.8XXA healing, no infectionl et it get dry and heal, don't cover [id number] Brent Hines MD [facility] Internal Med [facility] [address] [place] [address] 01/14/2024 10:50:58 01/14/2024 11:53:25 Adult health examination 527816589 Z00.00 Colonoscop y-Mammogra m- 06/22/2020 Dexa- 06/22/2020 FLU- 2023 ([facility] )RSV- 2023 ([facility])COVID - 03/16/20, 05/01/20, 2023 Essential hypertension 27360021 I10 under control Diabetes mellitus 603683 09 E11.9 under control, no meds , keep watching diet, no meds needed Degenerati on of cervical intervertebral disc 78241662 M50.30 meds help Spinal héctor nosis of lumbar region 07856442 M48.061 seen pain management Neuropathy 442175057 G62 .9 mild symptoms, no meds needed Osteoarthritis 063507891 M19.90 voltaren gel Asthma 221408159 J45.90 9 under control with inhalers Allergic rhinitis 198654 04 J30.9 on zyrtec and flonase 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.90 seeing ophthalmol ogy Irritable bowel syndrome 81824192 K58.9 meds help Hypothyroidism 13197895 E03.9 stable Hyperlipidemia 06970089 E78.5 stable Gastroesop hageal reflux disease 372476918 K21.9 meds help Osteoporosis 72937954 M8 1.0 caltrate Vitamin D deficiency 347 02023 E55.9 on otc Alzheimer's disease 2692 9004 G30.9 on meds Hearing loss 61563089 H9 1.93 hearing aids Kidney disease 15173203 N08 improved, keep drinking water 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 advised to keep the arms covered Health Concerns Section Related Observation LastModified by Organization Detai ls LastModified Time None Recorded Concern Status LastModified by Organization Details LastModified Time None Recorded Advance Directives Directive Y: Payers Encounter Date Sequence Insurance Name Policy Number Policy Hunt Covered Member ID Hunt Member ID Guarantor Name 06/27/2023 1 [place] Nadine Marshall Bertram [id number] Nadine Burden 06/27/2023 2 WPS - FOR LIFE (SECONDARY TO MEDICARE) Lalo Burden [id number] Nadine Burden 09/15/2023 1 [place] Nadine Joanna Bertram [id number] Nadine Burden 09/15/2023 2 WPS - FOR LIFE (SECONDARY TO MEDICARE) Lalo Burden [id number] Nadine Burden 11/24/2023 1 [place] Nadineelif Burden [id number] Nadine Burden 11/24/2023 2 WPS - FOR LIFE (SECONDARY TO MEDICARE) Lalo Burden [id number] Nadine Burden 12/17/2023 1 [place] Nadine Joanna Burden [id number] Nadine Burden 12/17/2023 2 [place]PS - FOR LIFE (SECONDARY TO MEDICARE) Lalo Burden [id number] Nadine Burden 01/14/2024 1 [place] Nadine Burden [id number] Nadine Burden 01/14/2024 2 WPS - FOR LIFE (SECONDARY TO MEDICARE) Lalo Burden [id number] Nadine Burden Notes Date Note Type Note Provider Name and Address Organization Details Recorded Time text/html Er fellow up from fall on her right arm,she fall on the jun 18 2023 Madelaine Wilson, SURGICAL SUPERVISOR [address], [place], [address], [place] [employer] 06/27/2023 12:00:41 4 text/html She is here today for a 4 month follow up.Pt compliant to medsPt reports having bug bites on Rt arm, left shoulder.Pt stated spots approx. 1 weekPt stated applying OTC cream for itching relief SHE LIVES AT AN ASSISTED LIVING PLACE ([facility]) HEARING LOSS, using hearing aids DISCUSSED NOT TO SEE ANY SPECIALIST ANY MORE, ( NEPHROLOGY, CARDIOLOGY, NEUROLOGY, )she has multiple problems, complicated historyAlzheimer's disease- seeing neurology at [place], on meds, not getting worse, still drives, lives alone, no psych problems, seeing dr Mathews at [facility]- Aricept 5 mg qd DM- Does not do accu checks, only when she feels badNo hypoglycemia, No neuropathyDM eye exam- Wash Patience longer on metformin Hypothyroidism- on meds,Meds- Synthroid 100 mcg daily HTN- b/p is under controlMeds- Losartan 100 mg, Carvedilol 12.5 mg 1/2 tab BID, felodipine ER 5 mg, furosemide 40 mg qd GERD- on meds and symptoms are under control.Meds- Omeprazole 20 mg dailyHyperlipidemia-- on meds, Trig were highMeds- Rosuvastatin 40 mg daily Melanoma eye left, seeing ophthalmologyStarted getting eye injections of Avastin once a month. Takes PreserVision daily Asthma- seen Orchestra Conductor , under controlMeds- Trelegy, Combivent 20 mcg/100 mcg 1 puff BID and Pro-air inhaler as needed, Zyrtec 10 mg daily and Montelukast 10 mg daily. Nucala is once a month Arthritis- She has neck and shoulder pain, on meloxicamMeds- Meloxicam 15 mg daily and uses Voltaren gel Neuropathy- WAS on gabapentin, not any more Anxiety-was on xanax from previous MD, tried celexa, had side effects and has stopped.Meds- Escitalopram 20mg dailyCHF-Seeing Casting Supervisor- Dr. Paniagua for diastolic dysfunction IBS- on meds, helpsMeds- Cholestyramine 4 g and Loperamide 2 mg as needed Ex-smoker- Quit in 1997 Osteoporosis- was on Alendronate, stopped in the past does not know why, now takes Caltrate + D, had another dexa recently Back pain/ neck pain- was seeing pain management, . MRI 10/30 , no more meds Kidney disease- started 2022, GFR was 33, now improved to over 60, has seen dr siva Hines MD [address], [facility] [address], [place], [address], [employer] 09/15/2023 12:14:09 4 text/html Pt is here today for low heart rate.She was at an appointment over at [place] and it was 50 there and they told her son that she needs to follow up with her PCP.Pt states that she feels tired but thats just because all the running around shes done. Yesterday she felt fineno cp or sob Brent Hines MD [address], [facility] [address], [place], [address], [employer] 11/24/2023 15:37:46 4 text/html She is here today for a 3 week follow up.She had bradycardia, carvedilol was decreased.Her blood pressure today is 94/58. States she feels fine.no cp or sobWould also like her nose looked at, She has a laceration on her nose(Leda said She had fallen but her daughter said she didnt) Brent Hines MD [address], [facility] [address], [place], [address], [employer] 12/17/2023 11:26:08 4 text/html She is here today for her routine follow up. Here today with her [id number] compliant to medsPt reports having bites on Rt/Lt arm, daughter states that she picks at them all the time and wants to make sure they are not getting infected SHE LIVES AT AN ASSISTED [facility]IVING PLACE ([facility]) HEARING LOSS, using hearing aids DISCUSSED NOT TO SEE ANY SPECIALIST ANY MORE, ( NEPHROLOGY, CARDIOLOGY, )she has multiple problems, complicated historyAlzheimer's disease- seeing neurology at [place], on meds, not getting worse,meds- Aricept 5 mg qd DM- Does not do accu checks, no [id number] was 5.9No hypoglycemia, No neuropathyDM eye exam- Wash Patience longer on metformin Hypothyroidism- on meds, under controlMeds- Synthroid 100 mcg daily HTN- b/p is under controlMeds- Losartan 100 mg, Carvedilol 6.25 mg 1/2 tab BID, Felodipine ER 5 mg, Furosemide 40 mg qd GERD- on meds and symptoms are under control.Meds- Omeprazole 20 mg dailyHyperlipidemia-- on meds, Trig were highMeds- Rosuvastatin 40 mg daily Melanoma eye left, seeing ophthalmology Asthma- seen Orchestra Conductor , under controlMeds- Trelegy, Combivent 20 mcg/100 mcg 1 puff BID and Pro-air inhaler as needed, Zyrtec 10 mg daily and Montelukast 10 mg daily. Nucala is once a month Arthritis- She has neck and shoulder pain, on meloxicamMeds- uses Voltaren gel Neuropathy- WAS on gabapentin, not any more Anxiety-was on xanax from previous MD, tried celexa, had side effectsMeds- Escitalopram 20mg dailyCHF-Seen Casting Supervisor- Dr. Paniagua for diastolic dysfunction IBS- on meds, helpsMeds- Cholestyramine 4 g and Loperamide 2 mg as needed Ex-smoker- Quit in 1997 Osteoporosis- was on Alendronate, stopped in the past does not know why, now takes Caltrate + D, Back pain/ neck pain- was seeing pain management, . MRI 10/30 , no more meds Kidney disease- started 2022, GFR was 33, now improved to over 60, has seen dr paniagua in the past Brent Hines MD [address] [facility], [place], [address], [place] [employer] 01/14/2024 11:58:20 OBGyn Episode No OBEpisode recorded.
--- OUTSIDE RECORDS SUMMARY | 2024-04-03 10:58 | XMS_ITS ---
Author Organization [facility] Address [address] [address] [place] [address] Care Team Providers Care Advertising Inserter Name Role Phone Brian Todd Unavailable [phone] MEDICATIONS Medication SIG (Take, Route, Frequency, Duration) Notes Start Date End Date Status Ergocalciferol 1.25 MG (81088 UT) 1 capsule Orally Once a week for 90 day(s) 07/19/2022 06/27/2023 Active Calcitriol 0.25 MCG 1 capsule Orally Onc e a day for 90 day(s) 07/19/2022 06/27/2023 Active SOCIAL HISTORY Sex Assigned At : Social History Observation Description Sex Assigned At Female Encounters Encounter Location Date Provider Diagnosis [place] [facility] [address] [facility] [address] [place] [address] 10/30/2022 Todd Torres Chronic kidney disea se, stage 3b N18.32 ; Essential (primary) hypertension I10 ; Proteinuria, unspecified R80.9 ; Renal osteodystrophy N25.0 and Secondary hyperparathyroidism, not elsewhere classified E21.1 ASSESSMENTS Encounter Date Diagnosis Assessment Notes Treatment Notes Treatment Clinical Notes Section Notes 10/30/2022 Chronic kidney disease, stage 3b (ICD-10 - N18.32) 10/30/2022 Essential (primary) hypertension (ICD-10 - I10) 10/30/2022 Proteinuria, unspecified (ICD-10 - R80.9) 10/30/2022 Renal osteodystrophy (ICD-10 - N25.0) 10/30/2022 Secondary hyperparathyroidism , not elsewhere classified (ICD-10 - E21.1) PLAN OF TREATMENT No Information Progress Notes * Nadine BURDENDOB:1940 (83 yo F)Acc No.[id number]:10/30/2022 Progress Notes Patient: BURDEN, Nadine Provider: MD RG, Florentino, F.A.S.N. :1940 Age:82 Y Sex:Female Date:10/30/2022 Address:[address] [place] [address] Subjective: * Chief Complaints: * * Medical History: * Medications: Taking Ergocalciferol 1.25 MG (43059 UT) Capsule 1 capsule Orally Once a week , stop date 06/27/2023, Taking Calcitriol 0.25 MCG Capsule 1 capsule Orally Once a day , stop date 06/27/2023 Objective: Assessment: * Assessment: 1. Chronic kidney disease, stage 3b - N18.32 2. Essential (primary) hypertension - I10 3. Proteinuria, unspecified - R80.9 4. Renal osteodystrophy - N25.0 5. Secondary hyperparathyroidism, not elsewhere classified - E21.1 Plan: * Treatment: * Billing Information: * Visit Code: [id number] Office Visit, Est Pt., Level 4. * Procedure Codes: * RMATION ARCHITECT Sign off status: Pending * Provider: MD RG, Florentino, F.A.S.N. Date: 10/30/2022
--- OUTSIDE RECORDS SUMMARY | 2024-04-03 10:58 | XMS_ITS | Referral Summary ---
Author Organization [facility] Address [address] [place] [address] Care Team Providers Care Semiconductor Dies Loader Name Role Phone Barbara Ho MD Unavailable [phone] Breonna Robin MD Unavailable [phone] Cornelius Snider MD Primary Care Provider [phone] Encounters Date Type Department Care Team Description 03/31/2024 10:30 AM MACHINE BANDER AND CELLOPHANER HELPER Office Visit [facility] Care at [address] [address] Anh Huff NP Neck pain (Primary Dx) 03/11/2024 2:20 PM MACHINE BANDER AND CELLOPHANER HELPER Office Visit [facility] Ophthalmology [address] [facility] [address]th [place] [address] Barbara Ho MD Cystoid macular edema of left eye (Primary Dx) 02/13/[address] [facility] [address] [facility] 6th [address] [place] [address] Monae Fischer, RN 02/13/[address] [facility] [address] [place] [address] Pradeep Lin 02/12/2024 Telephone [facility] [address] [place] [address] Pradeep Lin Med Management from Last 3 Months Allergies Active Allergy Reactions Criticality Noted Date [...] by oral route. 05/25/19 22 Active Ca-D3-mag vl-ybsr-cpk-mayte- bor (Calcium 600-D3 Plus, mag-zinc,) 600 mg [...] 03/12/2022 Assessment & Plan (12/16/2023 8:49 AM MACHINE BANDER AND CELLOPHANER HELPER): Continue donepezil/Aricept 10 mg daily. She did [...] OS. Assessment & Plan (02/17/2020 2:12 PM MACHINE BANDER AND CELLOPHANER HELPER): Pt was able to attain assistance from [employer] for cost of Eylea - will inject Eylea today and then again in Mar. Will re-eval tumor and rad retinopathy in April. Assessment & Plan (01/13/2020 2:32 PM MACHINE BANDER AND CELLOPHANER HELPER): Macular edema is improved, following 3 injections of Avastin. Recommend continuing anti-VEGF therapy. She would to try and get drug company assistance for the cost of the medication. We may need to switch to a different medicine if drug company will support her getting the medication for free. If not we will continue with Avastin. Will inject a Avastin to the left eye today and reinject monthly for in February and then again in March, then re-evaluate the tumor and macular edema with OCT color photographs and ultrasound in April. Cystoid macular edema of left eye 10/13/2019 Assessment & Plan (03/11/2024 4:26 PM MACHINE BANDER AND CELLOPHANER HELPER): Radiation retinopathy with cystoid macular edema, responsive [...] therapy. Assessment & Plan (03/06/2023 11:32 AM MACHINE BANDER AND CELLOPHANER HELPER): Radiation retinopathy with cystoid macular edema, responsive [...] scan Assessment & Plan (03/28/2022 2:19 PM MACHINE BANDER AND CELLOPHANER HELPER): Last KATE 12/06/21. Resolved cystoid macular edema (CME) left eye (OS) after latest injection, visual acuity (VA) stable at 20/30. Recommend observation. RTC in 2 months. Assessment & Plan (01/30/2022 2:00 PM MACHINE BANDER AND CELLOPHANER HELPER): Last KATE 12/06/21. Resolved cystoid macular edema [...] scheduled Assessment & Plan (02/01/2021 1:46 PM MACHINE BANDER AND CELLOPHANER HELPER): Previously on KATE monthly. Last KATE OS [...] controlled Assessment & Plan (02/28/2019 11:10 AM MACHINE BANDER AND CELLOPHANER HELPER): Choric, well controlled continue current medication regimen Polyneuropathy associated with underlying diseas e 11/22/2018 Assessment & Plan (02/28/2019 11:09 AM MACHINE BANDER AND CELLOPHANER HELPER): Chronic, stable Pt off gabapentin Assessment & Plan (11/22/2018 9:50 PM CDT): Chronic, worsening Advised to start Gabapentin therapy Acquired hypothyroidism 11/22/2018 Assessment & Plan (05/17/2019 1:04 PM CDT): Continue current dose of levothyroxine Check TSH Assessment & Plan (02/28/2019 11:09 AM MACHINE BANDER AND CELLOPHANER HELPER): Continue current Levothyroxine dose Check TSH Further [...] radiation. Assessment & Plan (03/06/2023 11:22 AM MACHINE BANDER AND CELLOPHANER HELPER): S/p plaque tx 2018 - here today for fundus photos which are stable. Will re-eval in aprox 1 year Assessment & Plan (07/18/2022 1:31 PM CDT): S/p plaque tx 2018 - here today for U/S - appears stable, flat Will re-eval in aprox 1 year Assessment & Plan (03/28/2022 2:20 PM MACHINE BANDER AND CELLOPHANER HELPER): S/p plaque tx 2017 - appears stable. 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 Stable today, recommend observation. Assessment & Plan (02/01/2021 1:49 PM MACHINE BANDER AND CELLOPHANER HELPER): Stable exam today. Monitoring with ultasound q6m. [...] EOE. Assessment & Plan (01/13/2020 2:28 PM MACHINE BANDER AND CELLOPHANER HELPER): Remains stable. Recommend observation. 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 Due for A/B scan in January. Assessment & Plan (08/05/2019 3:14 PM CDT): Stable today, recommend observation. Pt sees oncology for met screening in [place]. 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/2017 Immunizations Immunization Administration Dates Next Due Hep [...] Recombinant 10/19/2018,10/17/2018, 019 Zoster, unspecified 10/19/2018, 9,09/24/2006,11/19 Social History Tobacco Use Types Packs/Day Years [...] on file Legal Sex Female 2:36 AM MACHINE BANDER AND CELLOPHANER HELPER Gender Identity Female 02/23/2020 1:36 PM MACHINE BANDER AND CELLOPHANER HELPER Sexual Orientation Straight 02/23/2020 1: 36 PM MACHINE BANDER AND CELLOPHANER HELPER Last Filed Vital Signs Vital Sign Reading Time Taken Comments Blood Pressure 142/88 03/31/2024 10:31 AM MACHINE BANDER AND CELLOPHANER HELPER Pulse 85 03/31/2024 10:31 AM MACHINE BANDER AND CELLOPHANER HELPER Temperature 37.2 C (98.9 F) 03/31/2024 10:31 AM MACHINE BANDER AND CELLOPHANER HELPER Respiratory Rate 20 03/31/2024 10:31 AM MACHINE BANDER AND CELLOPHANER HELPER Oxygen Saturation 95% 03/31/2024 10:31 AM MACHINE BANDER AND CELLOPHANER HELPER Inhaled Oxygen Concentration - - Weight 89.8 kg (198 lb) 03/31/2024 10:31 AM MACHINE BANDER AND CELLOPHANER HELPER Height 170.2 cm (5' 7 ) 12/16/2023 7:46 AM MACHINE BANDER AND CELLOPHANER HELPER Body Mass Index 31.01 12/16/2023 7:46 AM MACHINE BANDER AND CELLOPHANER HELPER Plan of Treatment Not on file Medical Devices Implanted Type Area Flight Inspector Device Identifier Shelf Expiration Date Model / Serial / Lot Knee Left: Knee Procedures Procedure Name Priority Date/Time Associated Diagnosis Comments INTRAVITREAL INJECTION, PHARMACOLOGIC AGENT - OS - LEFT EYE Routine 03/11/2024 4:44 PM MACHINE BANDER AND CELLOPHANER HELPER Cystoid macular edema of left eye OCT, RETINA - OS - LEFT EYE Routine 03/11/2024 4:24 PM MACHINE BANDER AND CELLOPHANER HELPER Cystoid macular edema of left eye EGFR Routine 11/24/2023 11:44 AM CDT Ocular melanoma, left (HCC) LIPID PANEL Routine 07/14/2020 8:53 AM CDT ALBUMIN CREATININE RATIO, URINE Routine 05/28/2019 8:52 AM CDT Type 2 diabetes mellitus with hyperglycemia, without long-term current use of insulin ([facility]) POCT HEMOGLOBIN A1C Routine 02/22/2019 1 1:08 AM MACHINE BANDER AND CELLOPHANER HELPER Type 2 diabetes mellitus with hyperglycemia, without long-term current use of insulin ([facility]) from Last 3 Months or Most Recently Relevant to Health Maintenance Results * Intravitreal Injection, Pharmacologic Agent - OS - Left Eye (03/11/2024 4:44 PM MACHINE BANDER AND CELLOPHANER HELPER) Anatomical Region Laterality Modality Head Other Narrative 03/11/2024 4:44 PM MACHINE BANDER AND CELLOPHANER HELPER Time Out Informed consent was obtained after all risks, benefits and alternatives were explained to the patient. The patient understood, agreed and wished to proceed. Timeout was completed verifying the patient, procedure, laterality and allergies. Anesthesia Subconjunctival anesthesia was used, Topical anesthesia was used. Anesthetic medications included Lidocaine 2%, Proparacaine 0.5%. The anesthesia lot number is [id number]. The expiration date is 03/12/2025. The manufacture of the medication is [employer]. Intravitreal Injection, Pharmacologic Agent Preparation included 5% betadine to ocular surface, 10% betadine to eyelids. A 30 gauge needle was used. Pharmaceutical Medication: 2 mg aflibercept syringe 2 mg/0.05 mL Route: intravitreal, Site: Left Eye [facility]: [id number], Lot: [id number], Expiration date: 05/10/2024, Waste: 0 mL The [...] procedure. Notes Consent signed: Eylea OS 03/11/24 us Barbara Ho MD OPHTH CLINIC PROCEDURES Fi nal Result * OCT, Retina - OS - Left Eye (03/11/2024 4:24 PM MACHINE BANDER AND CELLOPHANER HELPER) Anatomical Region Laterality Modality Head Optical Coherenc e Tomography Narrative 03/11/2024 4:24 PM MACHINE BANDER AND CELLOPHANER HELPER Quality was good. Scan locations included subfoveal. [...] LAB BLOOD ORDERABLES Final Res ult [facility] Department [place] [address] * Lipid panel (07/14/2020 8:53 AM CDT) [...] Creatinine, ur 130 20 - 275 mg/dL [facility] [place] Microalbumin, ur 2.1 See Note: mg/dL [facility] [place] Comment: Reference Range: Reference Range Not established Microalbumin/creat ratio 16 <30 mcg/mg creat [facility] [place] Comment: The ADA defines [...] Agency Comment Performing Organization Information: Site ID: [place] Name: [email or web address] Address: [address] [address] Director: Wilbert Murphy D.O., MPH Breonna Miller MD LAB URINE ORDERABLE S Final Result [facility] [place] * POCT hemoglobin A1c (02/22/2019 11:08 AM MACHINE BANDER AND CELLOPHANER HELPER) Hemoglobin A1C, POC 5.3 Blood specimen (specimen) 02/22/2019 11:08 AM MACHINE BANDER AND CELLOPHANER HELPER Breonna Miller MD POINT OF CARE TEST ORDERABLES Final Result from Last 3 Months or Most Recently Relevant to Health Maintenance Insurance MEDICARE [email or web address] FOR LIFE MEDICARE [email or web address] FOR LIFE Member Subscriber Plan / Payer (Ef fective 2018-Present) Name:Nadine Burden Relation to Subscriber:Self Name:Nadine Burden Payer ID:[id number] (NAIC) Type: Address: [place] [id number] [place] [address] LIFE MEDICARE MEDICARE FOR LIFE Advance Directives For more information, please contact: [phone] Documents on File Type Date Recorded Patient Web Press Roll Tender Expl anation ADVANCE DIRECTIVE 05/09/2017 12:00 AM Care Teams Semiconductor Dies Loader Relationship Specialty Start Date End Date Cornelius Snider MD [address] [place] [address] PCP - General Internal Medicine 05/09/22 Barbara Ho MD [address] [facility] [address] [place] [address] Surgeon Ophthalmology 07/31/17 [place] [address] [facility] [address] [place] [address] Consulting Physician Endocrinology 11/16/18
--- OUTSIDE RECORDS SUMMARY | 2024-04-03 10:59 | XMS_ITS | Patient Health Record ---
Author Organization [facility] Address [address] [place] [address] REASON FOR REFERRAL No Information SOCIAL HISTORY Sex Assigned At : Social History Observation Description Sex Assigned At Female PROBLEMS Problem Type ICD Code Onset Dates Problem Status W/U Status Risk SNOMED Code Notes Problem Secondary hyperparathyroid ism, not elsewhere classified (E21.1) Active confirmed Secondary hyperparathyroidism (72021472) Problem Essential (primary) hypertension (I10) Active confirmed Essential hypertension (16193464) Problem Renal osteodystrophy (N25.0) Active confirmed Renal osteodyst rophy (31517874) Problem Proteinuria, unspecified (R80.9) Active confirmed Proteinuria (23859097) Problem Chronic kidney disease, stage 3b (N18.32) Active confirmed Chronic kidney disease stage 3B (disorder) (223429810) PLAN OF TREATMENT No Information
--- OUTSIDE RECORDS SUMMARY | 2024-04-03 10:59 | XMS_ITS | Clinical Summary ---
Author Organization [facility] Address [address] [place] [address] Phone Care Team Providers Care Scrap Hooker Name Role Phone Ezio Vance MD Primary Care Provider [phone] Allergies Active Allergy Reactions Criticality Noted Date Comments Adhesive Rash Medium 10/27/2014 Rash with adhesive tape Guanfacine Anxiety,Dizziness Medium 10/27/2014 Penicillins Rash Medium 10/27/2014 Tramadol Anxiety,Dizziness Medium 10/27/2014 Verapamil Unknown 10/27/2014 Medications furosemide (LASIX) 40 mg tablet Take 40 mg by mouth daily. Active carvedilol (COREG) 6.25 mg tablet Take 6.25 mg by mouth 2 times daily. Active potassium chloride (KLOR-CON) 10 mEq Extended Release tablet Take 10 mEq by mouth one time only. Active rosuvastatin (CRESTOR) 40 mg tablet Take 40 mg by mouth daily at bedtime. Active Irbesartan (AVAPRO) 300 mg tablet Take 300 mg by mouth daily. Active ALPRAZolam (XANAX) 0.5 mg tablet Take 0.5 mg by mouth 3 times daily as needed for Anxiety. Active diclofenac sodium (VOLTAREN) 1 % gel Apply 2 Gram to affected area 4 times daily. Active meloxicam (MOBIC) 15 mg tablet Take 15 mg by mouth daily. Active levothyroxine 100 mcg tablet Take 100 mcg by mouth daily early childhood education worker. Active cetirizine (ZYRTEC) 10 mg tablet Take 10 mg by mouth 1 time daily as needed for Allergies. Active montelukast (SINGULAIR) 10 mg tablet Take 10 mg by mouth daily at bedtime. Active ipratropium-alb uterol (COMBIVENT RESPIMAT) 20-100 mcg/actuation Mist Take 1 Puff by inhalation 4 times daily. Active fluticasone-josafat meterol (ADVAIR HFA) 230-21 mcg/actuation HFA Aerosol Inhaler Take 2 Puffs by inhalation 2 times daily. Active felodipine (PLENDIL) 5 mg Extended Release 24 hour tablet Take 5 mg by mouth daily. Active albuterol HFA 90 mcg inhaler Take 2 Puffs by inhalation every 4 hours as needed for Shortness of Breath. Active sitaGLIPtin (JANUVIA) 50 mg Tablet Take 50 mg by mouth 2 times daily. Active esomeprazole (NEXIUM) 20 mg Capsule, Delayed Release(E.C.) Take 40 mg by mouth daily before breakfast. Active cholestyramine aspartame (PREVALITE,QUES TRINIDAD LIGHT) 4 gram Powder in Packet Take 4 Gram by mouth daily at bedtime. Active loperamide (IMODIUM) 2 mg Tablet Take 2 mg by mouth daily. Active vitamin B complex Tablet Sustained Release Take 1 Tablet by mouth daily. Active multivitamins-m inerals-lutein (CENTRUM SILVER) Tablet Take 1 Tablet by mouth daily. Active ergocalciferol, vitamin D2, 2,000 unit Tablet Take 2,000 Units by mouth daily. Active aspirin (ECOTRIN EC) 81 mg Tablet, Delayed Release (E.C.) Take 81 mg by mouth daily. Active sitaGLIPtin-Met FORMIN (JANUMET) 50-500 mg tablet Take 1 Tablet by mouth 2 times daily with meals. Active Social History Tobacco Use Types Packs/Day Years Used Date Smoking Tobacco: Former Comments:Quit 15 yrs ago Alcohol Use Standard Drinks/Week Comments Yes 0 (1 standard drink = 0.6 oz pur e alcohol) occasional Comments Unknown Sex and Gender Information Value Date Recorded Sex Assigned at Not on file Legal Sex Female 11:25 AM CDT Gender Identity Not on file Sexual Orientation Not on file Last Filed Vital Signs Vital Sign Reading Time Taken Comments Blood Pressure 125/69 10/31/2014 3:26 PM CDT Pulse 69 10/31/2014 10:04 AM CDT Temperature 36.6 C (97.8 F) 10/31/2014 1:48 PM CDT Respiratory Rate 15 10/31/2014 3:00 PM CDT Oxygen Saturation 93% 10/31/2014 3:26 PM CDT Inhaled Oxygen Concentration - - Weight 88.9 kg (196 lb) 10/31/2014 10:04 AM CDT Height 168.9 cm (5' 6.5 ) 10/31/2014 10:04 AM CD T Body Mass Index 31.16 10/31/2014 10:04 AM CDT Plan of Treatment Health Maintenance Due Date Last Done Comments DTAP/TDAP/TD VACCINES (1 - Tdap) 06/29/1959 PNEUMOCOCCAL VACCINE 65+ YEARS (1 of 1 - PCV) 06/29/18 90 ZOSTER VACCINE (1 of 2) 06/29/1989 OSTEOPOROSIS SCREENING 06/29/2004 RSV VACCINE (60+ or ) (1 - 1-dose 75+ series) 06/29/2014 INFLUENZA VACCINE (#1) 2023 Medical Devices Implanted Type Area Life Skills Coordinator Device Identifier Shelf Expiration Date Model / Serial / Lot Biceps Distal Repair Kt [id number] - [id number] Implanted:Qty: 1 on 10/31/2014 by Americo Umana MD at [facility] Other Left: Shoulder [employer] 08/31/2019 AR-2260 / AR-[id number] / [id number] Insurance MEDICARE PART A AND B [email or web address] Advance Directives For more information, please contact: [phone] Documents on File Type Date Recorded Patient Director Of Employer Services Expl anation Advance Directive Living Will 11/16/2014 10:40 AM Advance Directive POA 11/06/2014 8:38 AM A dvance Directive POA * Full Code (Latest Code Status on File) Date Activated Date Inactivated Comments 10/31/2014 10:13 AM 10/31/2014 5:52 PM Care Teams Scrap Hooker Relationship Specialty Start Date End Date Ezio Vance MD [address] [place] [address] PCP - General Family Practice 10/28/14
--- OUTSIDE RECORDS SUMMARY | 2024-04-03 10:59 | XMS_ITS ---
Author Organization [facility] Address [address] [address] [place] [address] Care Team Providers Care Inspector Outside Production Name Role Phone Brian Todd Unavailable [phone] MEDICATIONS Medication SIG (Take, Route, Frequency, Duration) Notes Start Date End Date Status Calcitriol 0.25 MCG 1 capsule Orally Onc e a day for 90 day(s) 07/19/2022 06/27/2023 Active Ergocalciferol 1.25 MG (53724 UT) 1 capsule Orally Once a week for 90 day(s) 07/19/2022 06/27/2023 Active SOCIAL HISTORY Sex Assigned At : Social History Observation Description Sex Assigned At Female Encounters Encounter Location Date Provider Diagnosis [facility] [address] [facility] [address] [place] [address] 01/08/2023 Todd Torres Chronic kidney disea se, stage 3b N18.32 ; Essential (primary) hypertension I10 ; Proteinuria, unspecified R80.9 ; Renal osteodystrophy N25.0 and Secondary hyperparathyroidism, not elsewhere classified E21.1 ASSESSMENTS Encounter Date Diagnosis Assessment Notes Treatment Notes Treatment Clinical Notes Section Notes 01/08/2023 Chronic kidney disease, stage 3b (ICD-10 - N18.32) 01/08/2023 Essential (primary) hypertension (ICD-10 - I10) 01/08/2023 Proteinuria, unspecified (ICD-10 - R80.9) 01/08/2023 Renal osteodystrophy (ICD-10 - N25.0) 01/08/2023 Secondary hyperparathyroidism , not elsewhere classified (ICD-10 - E21.1) PLAN OF TREATMENT No Information Progress Notes * Nadine BURDENDOB:1940 (83 yo F)Acc No.[id number]:01/08/2023 Progress Notes Patient: BURDEN, Nadine Provider: MD RG, Florentino, F.A.S.N. :1940 Age:82 Y Sex:Female Date:01/08/2023 Address:[address] [place] [address] Subjective: * Chief Complaints: * * Medical History: * Medications: Taking Ergocalciferol 1.25 MG (86249 UT) Capsule 1 capsule Orally Once a [...] Treatment: * Billing Information: * Visit Code: 50312 Office Visit, Est Pt., Level 4. * Procedure Codes: * M GIGGER Sign off status: Pending * Provider: MD RG, Florentino, F.A.S.N. Date: 01/08/2023
--- OUTSIDE RECORDS SUMMARY | 2024-04-03 10:59 | XMS_ITS | Continuity of Care Document ---
Author Organization [facility] Address [address] [place] [address] Phone Care Team Providers Care Loom Repairer Name Role Phone Mayra THOMAS, MATILDET, Suresh Unavailable Unavailable Procedures Procedure Date Therapeutic Activities Neuromuscular Re-Ed Therapeutic Exercise Progress Note Therapeutic Activities Neuromuscular Re-Ed Therapeutic Exercise Therapeutic Activities Neuromuscular Re-Ed Therapeutic Exercise Therapeutic Activities Neuromuscular Re-Ed Therapeutic Exercise Therapeutic Activities Neuromuscular Re-Ed Therapeutic Activities Therapeutic Exercise Therapeutic Activities Neuromuscular Re-Ed Therapeutic Activities Neuromuscular Re-Ed Therapeutic Activities Neuromuscular Re-Ed Doc neg elder mal no plan Therapeutic Activities PT Evaluation Moderate Complexity Neuromuscular Re-Ed Advance Directives Directive Yes / No Effective Date File Name No Information Encounters Encounter Description Practice Location Reason(s) For Visit Diagnoses Date Provider Providers Copied on Encounter [facility], [address], [place], [place], [id number], [place] tel:[phone] [place] No Information 2 Klahn Suresh. . [facility], [address], [place], [place], [address], [place] tel:[phone] [place] No Information Nov-1 - 2 Klahn Suresh. . Referring Provider: Tyron [address], [place], [address]. tel:[phone] [facility] [address], [place], [place], [address], [place] tel:[phone] [place] No Information Nov-0 2 Klahn Suresh. . Referring Provider: Tyron Hawkins [facility] [address], [place], [address]. tel:[phone] [facility] [address] [place], [place] [address], [place], [place], [address], [place] tel:[phone] [place] No Information Nov-0 2 Klahn Suresh. . Referring Provider: Tyron Hawkins [facility] [address], [place], [address]. tel:[phone] [place] [address] [facility] [address], [place], [place], [address], [place] tel:[phone] [place] No Information Nov-0 2 Klahn Suresh. . Referring Provider: Johnathon [facility] [address], [place], [address]. tel:[phone] [facility] [address], [place], [place], [address], [place] tel:[phone] [place] No Information 2 Klahn Suresh. . Referring Provider: Tyron [address], [place], [address]. tel:[phone] [facility], [place], [place], [address], [place] tel:[phone] [place] No Information 2 Mayra Prince. . Referring Provider: Femi Blas [facility] [address] , [place], [place], [facility]. tel:[phone] [place] [address] [address], [place], [address], tel:[phone] [place] No Information 2 Mayra Prince. . Referring Provider: Femi Blas [facility] [address], [place], [facility]. tel:[phone] [place] [address] [address], [place], [place], [address], tel:[phone] [place] No Information 2 Mayra Prince. . Referring Provider: Femi Blas [address] [place] [address] [address] , [place], [facility]. tel:[phone] [place] [address] [address], [place], [place], [address], tel:[phone] [place] No Information 2 Mayra Prince. . Referring Provider: Femi Blas [address] [place] [address] [address] , [place], [facility]. tel:[phone], [place], [place], [address], tel:[phone] [place] No Information 2 Mayra Prince. . Referring Provider: Femi Blas [facility] [address], [place], [facility]. tel:[phone] Family History Family Member Type Diagnosis Age At Onset No Information Payers Payer name Insurance type Covered libertarian ID Authorvanessaa tibilly(s) Medicare [place] [id number] For Life Medicare Se condary Only [place] [id number] Social History Type Description Quantity Date Captured Comments Sex Female Smoking Status No Information Chief Complaint And Reason For Visit No Information Reason For Referral Reason For Referral No Information History Of Present Illness Encounter Date Complaint History Of Prese nt Illness No Information Functional Status Date Functional Assessmen t No Information Instructions Date Instruction Additional Infor mation Giving encouragement to exercise Related to Overweight Giving encouragement to exercise Related to Overweight Assessments Type Assessment Date No Information Patient Care Teams Name Effective Dates (start - stop) Status Members No Information
--- OUTSIDE RECORDS SUMMARY | 2024-04-03 10:59 | XMS_ITS | Continuity of Care Document ---
Author Organization [facility] Address [address] [place] [address] Phone Care Team Providers Care Dry Cleaning Attendant Name Role Phone Jackson OD, Curtis Unavailable Unavailable Procedures Procedure Date Eye Exam & Treatment Refraction Frames Deluxe Progressive Lens, Plastic Tint Photochromatic, Polycarb 0 Anti-reflective Coating Tax - Medical Visual Field Examination(s) Eye Exam & Treatment Optic Nerve Head Eval Refraction Advance Directives Directive Yes / No Effective Date File Name No Information Encounters Encounter Description Practice Location Reason(s) For Visit Diagnoses Date Provider Providers Copied on Encounter [facility], [address] [place] [address] [address], [place], [place], [address], [place] tel:[phone] [facility] No Information 0 Jackson OD Curtis. [address] [facility] , [address], [place], [address], [place]. tel:[phone] [facility], [address] [place] [address] [address], [place], [place], [address], [place] tel:[phone] [facility] No Information 0 [facility]. [address] [facility], [address], [place], [place], [address], [place]. tel:[phone] Referring Provider: Curtis Marshall, [address] [place], [place] [address], [place], [place], [facility]. tel:[phone] ramos Provider: Macey Blanchard, [address] [place], [place], [facility]. tel:[phone] [facility], [address] [place] [address] [address], [place], [place], [address], tel:[phone] [facility] No Information [address] [place] [address], [place], [facility], [place]. tel:[phone] Referring Provider: Tim stark, [address] [place] [address], [place], [facility]. tel:[phone] [facility], [address] [facility] [address], [place], [place], [address], tel:[phone] [facility] No Information [address] [place] [address], [facility], . tel:[phone] Family History Family Member Type Diagnosis Age At Onset No Information Payers Payer name Insurance type Covered alliance party ID Authoriza tion(s) Medicare [facility] [id number] For Life Mdcr Supp [place] [id number] Social History Type Description Quantity Date Captured Comments Sex Female Smoking Status No Information Chief Complaint And Reason For Visit No Information Reason For Referral Reason For Referral No Information History Of Present Illness Encounter Date Complaint History Of Prese nt Illness No Information Functional Status Date Functional Assessmen t No Information Instructions Date Instruction Additional Infor mation No Information Assessments Type Assessment Date No Information Patient Care Teams Name Effective Dates (start - stop) Status Members No Information
[2024-04-03 11:02] VITALS: BP 124/64; PULSE 63; RESP 16; TEMP 36.6; O2SAT 95
--- OUTSIDE RECORDS SUMMARY | 2024-04-03 13:24 | XMS_ITS | Encounter Summary ---
Author Organization [facility] Address [address] [place] [address] Phone Care Team Providers Care Tour Operator Name Role Phone Ezio Vance MD Primary Care Provider Ezio Vance MD Primary Care Provider [phone] Ezio Vance MD Unavailable [phone] Barbara Ho MD Unavailable [phone] Broenna Robin MD Unavailable [phone] Unknown, Notinfile Primary Care Provider Unavail able Sky Jones MD Primary Care Provider [phone] Cornelius Snider MD Primary Care Provider [phone] Femi Blas MD Primary Care Provider [phone] Cornelius Snider MD Primary Care Provider [phone] Cornelius Snider MD Primary Care Provider [phone] Encounter Details Date Type Department Care Team (Late st Contact Info) Description 03/24/2017 Orders Only [facility] ProviderBlack MD [address] [place] [address] Social History Tobacco Use Types Packs/Day Years Used Date Smoking Tobacco: Former Comments Unknown Sex and Gender Information Value Date Recorded Sex Assigned at Not on file Legal Sex Female 2:36 AM MANAGER SPA Gender Identity Female 02/23/2020 1:36 PM MANAGER SPA Sexual Orientation Straight 02/23/2020 1: 36 PM MANAGER SPA documented as of this encounter Plan of [...] COVID: Suspected 02/20/2021 02/20/2021 02/20/2021 8:50 AM MANAGER SPA COVID19 02/20/2021 02/20/2021 03/02/2021 3:05 AM MANAGER SPA COVID: Recovered Comment:Added based on recent COVID infection. 03/02/2021 03/23/2021 2021 3:05 AM C DT documented as of this encounter Care Teams Tour Operator Relationship Specialty Start Date End Date Ezio Vance MD [address] [address] PCP - General 06/10/16 07/09/18 Ezio Vance MD [address] [address] PCP - General 07/10/18 11/15/18 Unknown, Notinfile PCP - General 11/16/18 11/25/18 kSy Jones MD [address] [place] [address] PCP - General Family Medicine 11/26/18 08/04/19 Cornelius Snider MD [address] [place] [address] PCP - General Internal Medicine 08/05/19 10/25/20 Femi Blas MD [address] [place] [address] PCP - General Internal Medicine 10/26/20 05/07/22 Cornelius Snider MD [address] [place] [address] PCP - General Internal Medicine 05/08/22 05/08/22 Cornelius Snider MD [address] [place] [address] PCP - General Internal Medicine 05/09/22 Ezio Vance MD [address] [address] 07/10/18 11/15/18 Barbara Ho MD [address] [facility] [address] [place] [address] Surgeon Ophthalmology 07/31/17 [place] [address] [facility] [address] [place] [address] Consulting Physician Endocrinology 11/16/18 documented as of this encounter
--- OUTSIDE RECORDS SUMMARY | 2024-04-03 13:24 | XMS_ITS | Encounter Summary ---
Author Organization [facility] Address [address] [place] [address] Phone Care Team Providers Care Financial Services Specialist Name Role Phone Ezio Vance MD Primary Care Provider Ezio Vance MD Primary Care Provider [phone] Ezio Vance MD Unavailable [phone] Barbara Ho MD Unavailable [phone] Breonna Robin MD Unavailable [phone] Unknown, Notinfile Primary Care Provider Unavail able Sky Jones MD Primary Care Provider [phone] Cornelius Snider MD Primary Care Provider [phone] Femi Blas MD Primary Care Provider [phone] Cornelius Snider MD Primary Care Provider [phone] Cornelius Snider MD Primary Care Provider [phone] Encounter Details Date Type Department Care Team (Late st Contact Info) Description 04/28/2017 Orders Only [facility] ProviderBlack MD [address] [place] [address] Social History Tobacco Use Types Packs/Day Years Used Date Smoking Tobacco: Former Comments Unknown Sex and Gender Information Value Date Recorded Sex Assigned at Not on file Legal Sex Female 2:36 AM CAMPAIGN FUNDRAISER Gender Identity Female 02/23/2020 1:36 PM CAMPAIGN FUNDRAISER Sexual Orientation Straight 02/23/2020 1: 36 PM CAMPAIGN FUNDRAISER documented as of this encounter Plan of [...] COVID: Suspected 02/20/2021 02/20/2021 02/20/2021 8:50 AM CAMPAIGN FUNDRAISER COVID19 02/20/2021 02/20/2021 03/02/2021 3:05 AM CAMPAIGN FUNDRAISER COVID: Recovered Comment:Added based on recent COVID infection. 03/02/2021 03/23/2021 2021 3:05 AM C DT documented as of this encounter Care Teams Financial Services Specialist Relationship Specialty Start Date End Date Ezio Vance MD [address] [address] PCP - General 06/10/16 07/09/18 Ezio Vance MD [address] [address] PCP - General 07/10/18 11/15/18 Unknown, Notinfile PCP - General 11/16/18 11/25/18 Sky Jones MD [address] [place] [address] PCP - General Family Medicine 11/26/18 08/04/19 Cornelius Snider MD [address] [place] [address] PCP - General Internal Medicine 08/05/19 10/25/20 Femi Blas MD [address] [place] [address] PCP - General Internal Medicine 10/26/20 05/07/22 Cornelius Snider MD [address] [place] [address] PCP - General Internal Medicine 05/08/22 05/08/22 Cornelius Snider MD [address] [place] [address] PCP - General Internal Medicine 05/09/22 Ezio Vance MD [address] [address] 07/10/18 11/15/18 Barbara Ho MD [address] [facility] [address] [place] [address] Surgeon Ophthalmology 07/31/17 [place] [address] [facility] [address] [place] [address] Consulting Physician Endocrinology 11/16/18 documented as of this encounter
--- OUTSIDE RECORDS SUMMARY | 2024-04-03 13:24 | XMS_ITS ---
Author Organization [facility] Address [address] [place] [address] Care Team Providers Care Shrimp Peeling Machine Tender Name Role Phone Barbara Ho MD Unavailable [phone] Breonna Robin MD Unavailable [phone] Cornelius Sndier MD Primary Care Provider Active Problems Problem Noted Date Diagnosed Date Alzheimer's disease with late onset 03/12/2022 Assessment & Plan (12/16/2023 8:49 AM BOXER OPERATOR): Continue donepezil/Aricept 10 mg daily. She did [...] OS. Assessment & Plan (02/17/2020 2:12 PM BOXER OPERATOR): Pt was able to attain assistance from [employer] for cost of Eylea - will inject Eylea today and then again in Mar. Will re-eval tumor and rad retinopathy in April. Assessment & Plan (01/13/2020 2:32 PM BOXER OPERATOR): Macular edema is improved, following 3 injections of Avastin. Recommend continuing anti-VEGF therapy. She would to try and get [employer] assistance for the cost of the medication. We may need to switch to a different medicine if [employer] will support her getting the medication for free. If not we will continue with Avastin. Will inject a Avastin to the left eye today and reinject monthly for in February and then again in March, then re-evaluate the tumor and macular edema with OCT color photographs and ultrasound in April. Cystoid macular edema of left eye 10/13/2019 Assessment & Plan (03/11/2024 4:26 PM BOXER OPERATOR): Radiation retinopathy with cystoid macular edema, responsive [...] therapy. Assessment & Plan (03/06/2023 11:32 AM BOXER OPERATOR): Radiation retinopathy with cystoid macular edema, responsive [...] scan Assessment & Plan (03/28/2022 2:19 PM BOXER OPERATOR): Last KATE 12/06/21. Resolved cystoid macular edema (CME) left eye (OS) after latest injection, visual acuity (VA) stable at 20/30. Recommend observation. RTC in 2 months. Assessment & Plan (01/30/2022 2:00 PM BOXER OPERATOR): Last KATE 12/06/21. Resolved cystoid macular edema [...] scheduled Assessment & Plan (02/01/2021 1:46 PM BOXER OPERATOR): Previously on KATE monthly. Last KATE OS [...] controlled Assessment & Plan (02/28/2019 11:10 AM BOXER OPERATOR): Choric, well controlled continue current medication regimen Polyneuropathy associated with underlying diseas e 11/22/2018 Assessment & Plan (02/28/2019 11:09 AM BOXER OPERATOR): Chronic, stable Pt off gabapentin Assessment & Plan (11/22/2018 9:50 PM CDT): Chronic, worsening Advised to start Gabapentin therapy Acquired hypothyroidism 11/22/2018 Assessment & Plan (05/17/2019 1:04 PM CDT): Continue current dose of levothyroxine Check TSH Assessment & Plan (02/28/2019 11:09 AM BOXER OPERATOR): Continue current Levothyroxine dose Check TSH Further [...] radiation. Assessment & Plan (03/06/2023 11:22 AM BOXER OPERATOR): S/p plaque tx 2018 - here today for fundus photos which are stable. Will re-eval in aprox 1 year Assessment & Plan (07/18/2022 1:31 PM CDT): S/p plaque tx 2018 - here today for U/S - appears stable, flat Will re-eval in aprox 1 year Assessment & Plan (03/28/2022 2:20 PM BOXER OPERATOR): S/p plaque tx 2017 - appears stable. 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 Stable today, recommend observation. Assessment & Plan (02/01/2021 1:49 PM BOXER OPERATOR): Stable exam today. Monitoring with ultasound q6m. [...] EOE. Assessment & Plan (01/13/2020 2:28 PM BOXER OPERATOR): Remains stable. Recommend observation. 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 Due for A/B scan in January. Assessment & Plan (08/05/2019 3:14 PM CDT): Stable today, recommend observation. Pt sees oncology for met screening in [place]. Pt notes occasional headache, no GCA symptoms, [...] months Assessment & Plan (02/28/2019 11:08 AM BOXER OPERATOR): Chronic, A1c today 5.3 % Over tight [...]
--- OUTSIDE RECORDS SUMMARY | 2024-04-03 13:25 | XMS_ITS | Clinical Summary ---
Author Organization [facility] Address [address] [place] [address] Phone Care Team Providers Care Can Solderer Name Role Phone Ezio Vance MD Primary Care Provider [phone] Allergies Active Allergy Reactions Criticality Noted Date [...] tablet Take 100 mcg by mouth daily lime burner. Active cetirizine (ZYRTEC) 10 mg tablet Take [...] (#1) 2023 Medical Devices Implanted Type Area Fibre Optic Cable Splicer Device Identifier Shelf Expiration Date Model / Serial / Lot Biceps Distal Repair Kt [id number] - [id number] Implanted:Qty: 1 on 10/31/2014 by Americo Umana MD at [facility] Other Left: Shoulder [employer] 08/31/2019 AR-2260 / AR-[id number] / [id number] Insurance MEDICARE PART A AND B [employer] Advance Directives For more information, please contact: [phone] Documents on File Type Date Recorded Patient Digital Associate Expl anation Advance Directive Living Will 11/16/2014 10:40 AM Advance Directive POA 11/06/2014 8:38 AM A dvance Directive POA * Full Code (Latest Code Status on File) Date Activated Date Inactivated Comments 10/31/2014 10:13 AM 10/31/2014 5:52 PM Care Teams Can Solderer Relationship Specialty Start Date End Date Ezio Vance MD [address] [place] [address] PCP - General Family Practice 10/28/14
--- OUTSIDE RECORDS SUMMARY | 2024-04-03 13:25 | XMS_ITS | Clinical Summary ---
Author Organization [facility] Address [address] [place] [address] Care Team Providers Care Field Contractor Name Role Phone Barbara Ho MD Unavailable Breonna Robin MD Unavailable [phone] Cornelius Snider MD Primary Care Provider [phone] Allergies Active Allergy Reactions Criticality Noted Date [...] by oral route. 05/25/19 22 Active Ca-D3-mag lk-twim-yuq-mayte- bor (Calcium 600-D3 Plus, mag-zinc,) 600 mg [...] 03/12/2022 Assessment & Plan (12/16/2023 8:49 AM MANAGER PROPERTY): Continue donepezil/Aricept 10 mg daily. She did [...] OS. Assessment & Plan (02/17/2020 2:12 PM MANAGER PROPERTY): Pt was able to attain assistance from [employer] for cost of Eylea - will inject Eylea today and then again in Mar. Will re-eval tumor and rad retinopathy in April. Assessment & Plan (01/13/2020 2:32 PM MANAGER PROPERTY): Macular edema is improved, following 3 injections of Avastin. Recommend continuing anti-VEGF therapy. She would to try and get [employer] assistance for the cost of the medication. We may need to switch to a different medicine if [employer] will support her getting the medication for free. If not we will continue with Avastin. Will inject a Avastin to the left eye today and reinject monthly for in February and then again in March, then re-evaluate the tumor and macular edema with OCT color photographs and ultrasound in April. Cystoid macular edema of left eye 10/13/2019 Assessment & Plan (03/11/2024 4:26 PM MANAGER PROPERTY): Radiation retinopathy with cystoid macular edema, responsive [...] therapy. Assessment & Plan (03/06/2023 11:32 AM MANAGER PROPERTY): Radiation retinopathy with cystoid macular edema, responsive [...] scan Assessment & Plan (03/28/2022 2:19 PM MANAGER PROPERTY): Last KATE 12/06/21. Resolved cystoid macular edema (CME) left eye (OS) after latest injection, visual acuity (VA) stable at 20/30. Recommend observation. RTC in 2 months. Assessment & Plan (01/30/2022 2:00 PM MANAGER PROPERTY): Last KATE 12/06/21. Resolved cystoid macular edema [...] scheduled Assessment & Plan (02/01/2021 1:46 PM MANAGER PROPERTY): Previously on KATE monthly. Last KATE OS [...] controlled Assessment & Plan (02/28/2019 11:10 AM MANAGER PROPERTY): Choric, well controlled continue current medication regimen Polyneuropathy associated with underlying diseas e 11/22/2018 Assessment & Plan (02/28/2019 11:09 AM MANAGER PROPERTY): Chronic, stable Pt off gabapentin Assessment & Plan (11/22/2018 9:50 PM CDT): Chronic, worsening Advised to start Gabapentin therapy Acquired hypothyroidism 11/22/2018 Assessment & Plan (05/17/2019 1:04 PM CDT): Continue current dose of levothyroxine Check TSH Assessment & Plan (02/28/2019 11:09 AM MANAGER PROPERTY): Continue current Levothyroxine dose Check TSH Further [...] radiation. Assessment & Plan (03/06/2023 11:22 AM MANAGER PROPERTY): S/p plaque tx 2018 - here today for fundus photos which are stable. Will re-eval in aprox 1 year Assessment & Plan (07/18/2022 1:31 PM CDT): S/p plaque tx 2018 - here today for U/S - appears stable, flat Will re-eval in aprox 1 year Assessment & Plan (03/28/2022 2:20 PM MANAGER PROPERTY): S/p plaque tx 2017 - appears stable. 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 Stable today, recommend observation. Assessment & Plan (02/01/2021 1:49 PM MANAGER PROPERTY): Stable exam today. Monitoring with ultasound q6m. [...] EOE. Assessment & Plan (01/13/2020 2:28 PM MANAGER PROPERTY): Remains stable. Recommend observation. 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 Due for A/B scan in January. Assessment & Plan (08/05/2019 3:14 PM CDT): Stable today, recommend observation. Pt sees oncology for met screening in [place]. Pt notes occasional headache, no GCA symptoms, [...] months Assessment & Plan (02/28/2019 11:08 AM MANAGER PROPERTY): Chronic, A1c today 5.3 % Over tight [...] Department Care Team Description 03/31/2024 10:30 AM MANAGER PROPERTY Office Visit [facility] Medical Group [facility]ient Care at [address] [address] Anh Huff, ALEXANDRA Neck pain (Primary Dx) 03/11/2024 2:20 PM MANAGER PROPERTY Office Visit [facility] Ophthalmology [address] [facility] [address] [place] [address] Barbara Ho MD Cystoid macular edema of left eye (Primary Dx) 02/13/2024 Telephone [facility] [address] [facility] 6th [address] [place] [address] Monae Fischer RN 02/13/2024 Documentation [facility] [address] [facility] [address] [place] [address] Pradeep Lin 02/12/2024 Telephone [facility] [address] [facility] [address] [place] [address] Pradeep Lin Med Management from [...] file Legal Sex Female 2:36 AM MANAGER PROPERTY Gender Identity Female 02/23/2020 1:36 PM MANAGER PROPERTY Sexual Orientation Straight 02/23/2020 1: 36 PM MANAGER PROPERTY Obstetrics History Last Filed Vital Signs Vital Sign Reading Time Taken Comments Blood Pressure 142/88 03/31/2024 10:31 AM MANAGER PROPERTY Pulse 85 03/31/2024 10:31 AM MANAGER PROPERTY Temperature 37.2 C (98.9 F) 03/31/2024 10:31 AM MANAGER PROPERTY Respiratory Rate 20 03/31/2024 10:31 AM MANAGER PROPERTY Oxygen Saturation 95% 03/31/2024 10:31 AM MANAGER PROPERTY Inhaled Oxygen Concentration - - Weight 89.8 kg (198 lb) 03/31/2024 10:31 AM MANAGER PROPERTY Height 170.2 cm (5' 7 ) 12/16/2023 7:46 AM MANAGER PROPERTY Body Mass Index 31.01 12/16/2023 7:46 AM MANAGER PROPERTY Plan of Treatment Health Maintenance Due Date [...] history exists Medical Devices Implanted Type Area Card Clothier Device Identifier Shelf Expiration Date Model / Serial / Lot Knee Left: Knee Procedures Procedure Name Priority Date/Time Associated Diagnosis Comments INTRAVITREAL INJECTION, PHARMACOLOGIC AGENT - OS - LEFT EYE Routine 03/11/2024 4:44 PM MANAGER PROPERTY Cystoid macular edema of left eye OCT, RETINA - OS - LEFT EYE Routine 03/11/2024 4:24 PM MANAGER PROPERTY Cystoid macular edema of left eye EGFR Routine 11/24/2023 11:44 AM CDT Ocular melanoma, left (HCC) LIPID PANEL Routine 07/14/2020 8:53 AM CDT ALBUMIN CREATININE RATIO, URINE Routine 05/28/2019 8:52 AM CDT Type 2 diabetes mellitus with hyperglycemia, without long-term current use of insulin ([facility]) POCT HEMOGLOBIN A1C Routine 02/22/2019 1 1:08 AM MANAGER PROPERTY Type 2 diabetes mellitus with hyperglycemia, without long-term current use of insulin ([facility]) from Last 3 Months or Most Recently Relevant to Health Maintenance Results * Intravitreal Injection, Pharmacologic Agent - OS - Left Eye (03/11/2024 4:44 PM MANAGER PROPERTY) Anatomical Region Laterality Modality Head Other Narrative 03/11/2024 4:44 PM MANAGER PROPERTY Time Out Informed consent was obtained after all risks, benefits and alternatives were explained to the patient. The patient understood, agreed and wished to proceed. Timeout was completed verifying the patient, procedure, laterality and allergies. Anesthesia Subconjunctival anesthesia was used, Topical anesthesia was used. Anesthetic medications included Lidocaine 2%, Proparacaine 0.5%. The anesthesia lot number is [id number]. The expiration date is 03/12/2025. The manufacture of the medication is [employer]. Intravitreal Injection, Pharmacologic Agent Preparation included 5% betadine to ocular surface, 10% betadine to eyelids. A 30 gauge needle was used. Pharmaceutical Medication: 2 mg aflibercept syringe 2 mg/0.05 mL Route: intravitreal, Site: Left Eye [facility]: 89790-377-23, Lot: [id number], Expiration date: 05/10/2024, Waste: 0 mL The [...] OS - Left Eye (03/11/2024 4:24 PM MANAGER PROPERTY) Anatomical Region Laterality Modality Head Optical Coherenc e Tomography Narrative 03/11/2024 4:24 PM MANAGER PROPERTY Quality was good. Scan locations included subfoveal. [...] LAB BLOOD ORDERABLES Final Res ult [facility] Department [place] [address] * Lipid panel (07/14/2020 8:53 AM CDT) [...] Agency Comment Performing Organization Information: Site ID: [place] Name: [facility] Address: [address] [place] [address] Director: Wilbert Murphy D.O., MPH us Breonna Miller MD LAB URINE ORDERABLE S Final Result [facility] [place] * POCT hemoglobin A1c (02/22/2019 11:08 AM MANAGER PROPERTY) Hemoglobin A1C, POC 5.3 Blood specimen (specimen) 02/22/2019 11:08 AM MANAGER PROPERTY Breonna Miller MD POINT OF CARE TEST ORDERABLES Final Result from Last 3 Months or Most Recently Relevant to Health Maintenance Insurance [employer] MEDICARE FOR LIFE FOR LIFE MEDICARE [facility] Address: [address] [address] [place] [address] MEDICARE FOR LIFE Advance Directives For more information, please contact: [phone] Documents on File Type Date Recorded Patient Interventional Physician Expl anation ADVANCE DIRECTIVE 05/09/2017 12:00 AM Care Teams Field Contractor Relationship Specialty Start Date End Date Cornelius Snider MD [address] [place] [address] PCP - General Internal Medicine 05/09/22 Barbara Ho MD [address] [facility] [address] [place] [address] Surgeon Ophthalmology 07/31/17 [place] [address] [facility] [address] [place] [address] Consulting Physician Endocrinology 11/16/18
--- OUTSIDE RECORDS SUMMARY | 2024-04-03 13:25 | XMS_ITS | Referral Summary ---
Author Organization [facility] Address [address] [place] [address] Care Team Providers Care Alarm Technician Name Role Phone Barbara Ho MD Unavailable Breonna Robin MD Unavailable [phone] Cornelius Snider MD Primary Care Provider Encounters Date Type Department Care Team Description 03/31/2024 10:30 AM IT INFRASTRUCTURE PROJECT MANAGER Office Visit [facility] Medical [facility] Care at [address] [address] Anh Huff NP Neck pain (Primary Dx) 03/11/2024 2:20 PM IT INFRASTRUCTURE PROJECT MANAGER Office Visit [facility] Ophthalmology [address] [facility] 6th [place] [address] Barbara Ho MD Cystoid macular edema of left eye (Primary Dx) 02/13/2024 Telephone [facility] [address] [facility] 6th [address] [place] [address] Monae Fischer, RN 02/13/2024 Documentation [facility] [address] [facility] [address] [place] [address] Pradeep Lin 02/12/2024 Telephone [facility] [address] [facility] [address] [place] [address] Pradeep Lin Med Management from [...] by oral route. 05/25/19 22 Active Ca-D3-mag ud-wkel-vvy-mayte- bor (Calcium 600-D3 Plus, mag-zinc,) 600 mg [...] 03/12/2022 Assessment & Plan (12/16/2023 8:49 AM IT INFRASTRUCTURE PROJECT MANAGER): Continue donepezil/Aricept 10 mg daily. She did [...] OS. Assessment & Plan (02/17/2020 2:12 PM IT INFRASTRUCTURE PROJECT MANAGER): Pt was able to attain assistance from [employer] for cost of Eylea - will inject Eylea today and then again in Mar. Will re-eval tumor and rad retinopathy in April. Assessment & Plan (01/13/2020 2:32 PM IT INFRASTRUCTURE PROJECT MANAGER): Macular edema is improved, following 3 injections [...] 10/13/2019 Assessment & Plan (03/11/2024 4:26 PM IT INFRASTRUCTURE PROJECT MANAGER): Radiation retinopathy with cystoid macular edema, responsive [...] therapy. Assessment & Plan (03/06/2023 11:32 AM IT INFRASTRUCTURE PROJECT MANAGER): Radiation retinopathy with cystoid macular edema, responsive [...] scan Assessment & Plan (03/28/2022 2:19 PM IT INFRASTRUCTURE PROJECT MANAGER): Last KATE 12/06/21. Resolved cystoid macular edema (CME) left eye (OS) after latest injection, visual acuity (VA) stable at 20/30. Recommend observation. RTC in 2 months. Assessment & Plan (01/30/2022 2:00 PM IT INFRASTRUCTURE PROJECT MANAGER): Last KATE 12/06/21. Resolved cystoid macular edema [...] scheduled Assessment & Plan (02/01/2021 1:46 PM IT INFRASTRUCTURE PROJECT MANAGER): Previously on KATE monthly. Last KATE OS [...] controlled Assessment & Plan (02/28/2019 11:10 AM IT INFRASTRUCTURE PROJECT MANAGER): Choric, well controlled continue current medication regimen Polyneuropathy associated with underlying diseas e 11/22/2018 Assessment & Plan (02/28/2019 11:09 AM IT INFRASTRUCTURE PROJECT MANAGER): Chronic, stable Pt off gabapentin Assessment & Plan (11/22/2018 9:50 PM CDT): Chronic, worsening Advised to start Gabapentin therapy Acquired hypothyroidism 11/22/2018 Assessment & Plan (05/17/2019 1:04 PM CDT): Continue current dose of levothyroxine Check TSH Assessment & Plan (02/28/2019 11:09 AM IT INFRASTRUCTURE PROJECT MANAGER): Continue current Levothyroxine dose Check TSH Further [...] radiation. Assessment & Plan (03/06/2023 11:22 AM IT INFRASTRUCTURE PROJECT MANAGER): S/p plaque tx 2018 - here today for fundus photos which are stable. Will re-eval in aprox 1 year Assessment & Plan (07/18/2022 1:31 PM CDT): S/p plaque tx 2018 - here today for U/S - appears stable, flat Will re-eval in aprox 1 year Assessment & Plan (03/28/2022 2:20 PM IT INFRASTRUCTURE PROJECT MANAGER): S/p plaque tx 2017 - appears stable. 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 Stable today, recommend observation. Assessment & Plan (02/01/2021 1:49 PM IT INFRASTRUCTURE PROJECT MANAGER): Stable exam today. Monitoring with ultasound q6m. [...] EOE. Assessment & Plan (01/13/2020 2:28 PM IT INFRASTRUCTURE PROJECT MANAGER): Remains stable. Recommend observation. 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 Due for A/B scan in January. Assessment & Plan (08/05/2019 3:14 PM CDT): Stable today, recommend observation. Pt sees oncology for met screening in [place]. Pt notes occasional headache, no GCA symptoms, [...] months Assessment & Plan (02/28/2019 11:08 AM IT INFRASTRUCTURE PROJECT MANAGER): Chronic, A1c today 5.3 % Over tight [...] on file Legal Sex Female 2:36 AM IT INFRASTRUCTURE PROJECT MANAGER Gender Identity Female 02/23/2020 1:36 PM IT INFRASTRUCTURE PROJECT MANAGER Sexual Orientation Straight 02/23/2020 1: 36 PM IT INFRASTRUCTURE PROJECT MANAGER Last Filed Vital Signs Vital Sign Reading Time Taken Comments Blood Pressure 142/88 03/31/2024 10:31 AM IT INFRASTRUCTURE PROJECT MANAGER Pulse 85 03/31/2024 10:31 AM IT INFRASTRUCTURE PROJECT MANAGER Temperature 37.2 C (98.9 F) 03/31/2024 10:31 AM IT INFRASTRUCTURE PROJECT MANAGER Respiratory Rate 20 03/31/2024 10:31 AM IT INFRASTRUCTURE PROJECT MANAGER Oxygen Saturation 95% 03/31/2024 10:31 AM IT INFRASTRUCTURE PROJECT MANAGER Inhaled Oxygen Concentration - - Weight 89.8 kg (198 lb) 03/31/2024 10:31 AM IT INFRASTRUCTURE PROJECT MANAGER Height 170.2 cm (5' 7 ) 12/16/2023 7:46 AM IT INFRASTRUCTURE PROJECT MANAGER Body Mass Index 31.01 12/16/2023 7:46 AM IT INFRASTRUCTURE PROJECT MANAGER Plan of Treatment Not on file Medical Devices Implanted Type Area Wet Machine Cutter Device Identifier Shelf Expiration Date Model / Serial / Lot Knee Left: Knee Procedures Procedure Name Priority Date/Time Associated Diagnosis Comments INTRAVITREAL INJECTION, PHARMACOLOGIC AGENT - OS - LEFT EYE Routine 03/11/2024 4:44 PM IT INFRASTRUCTURE PROJECT MANAGER Cystoid macular edema of left eye OCT, RETINA - OS - LEFT EYE Routine 03/11/2024 4:24 PM IT INFRASTRUCTURE PROJECT MANAGER Cystoid macular edema of left eye EGFR Routine 11/24/2023 11:44 AM CDT Ocular melanoma, left (HCC) LIPID PANEL Routine 07/14/2020 8:53 AM CDT ALBUMIN CREATININE RATIO, URINE Routine 05/28/2019 8:52 AM CDT Type 2 diabetes mellitus with hyperglycemia, without long-term current use of insulin ([facility]) POCT HEMOGLOBIN A1C Routine 02/22/2019 1 1:08 AM IT INFRASTRUCTURE PROJECT MANAGER Type 2 diabetes mellitus with hyperglycemia, without long-term current use of insulin ([facility]) from Last 3 Months or Most Recently Relevant to Health Maintenance Results * Intravitreal Injection, Pharmacologic Agent - OS - Left Eye (03/11/2024 4:44 PM IT INFRASTRUCTURE PROJECT MANAGER) Anatomical Region Laterality Modality Head Other Narrative 03/11/2024 4:44 PM IT INFRASTRUCTURE PROJECT MANAGER Time Out Informed consent was obtained after all risks, benefits and alternatives were explained to the patient. The patient understood, agreed and wished to proceed. Timeout was completed verifying the patient, procedure, laterality and allergies. Anesthesia Subconjunctival anesthesia was used, Topical anesthesia was used. Anesthetic medications included Lidocaine 2%, Proparacaine 0.5%. The anesthesia lot number is [id number]. The expiration date is 03/12/2025. The manufacture of the medication is [employer]. Intravitreal Injection, Pharmacologic Agent Preparation included 5% betadine to ocular surface, 10% betadine to eyelids. A 30 gauge needle was used. Pharmaceutical Medication: 2 mg aflibercept syringe 2 mg/0.05 mL Route: intravitreal, Site: Left Eye [facility]: 35934-235-43, Lot: [id number], Expiration date: 05/10/2024, Waste: 0 mL The [...] OS - Left Eye (03/11/2024 4:24 PM IT INFRASTRUCTURE PROJECT MANAGER) Anatomical Region Laterality Modality Head Optical Coherenc e Tomography Narrative 03/11/2024 4:24 PM IT INFRASTRUCTURE PROJECT MANAGER Quality was good. Scan locations included subfoveal. [...] LAB BLOOD ORDERABLES Final Res ult [facility] One [facility] Department [place] [address] * Lipid panel (07/14/2020 8:53 AM CDT) [...] Creatinine, ur 130 20 - 275 mg/dL [facility] [place] Microalbumin, ur 2.1 See Note: mg/dL [facility] [place] Comment: Reference Range: Reference Range Not established Microalbumin/creat ratio 16 <30 mcg/mg creat [facility] [place] Comment: The ADA defines [...] Agency Comment Performing Organization Information: Site ID: [place] Name: [facility] Address: [address] [address] Director: Wilbert Murphy D.O., MPH Breonna Miller MD LAB URINE ORDERABLE S Final Result [facility] [place] * POCT hemoglobin A1c (02/22/2019 11:08 AM IT INFRASTRUCTURE PROJECT MANAGER) Hemoglobin A1C, POC 5.3 Blood specimen (specimen) 02/22/2019 11:08 AM IT INFRASTRUCTURE PROJECT MANAGER Breonna Miller MD POINT OF CARE TEST ORDERABLES Final Result from Last 3 Months or Most Recently Relevant to Health Maintenance Insurance MEDICARE [employer] FOR LIFE MEDICARE [employer] FOR LIFE Member Subscriber Plan / Payer (Ef fective 2018-Present) Name:Nadine Burden Relation to Subscriber:Self Name:Nadine Burden Payer ID:[id number] (NAIC) Type: Address: [place] [id number] [place] [address] LIFE MEDICARE MEDICARE FOR LIFE Advance Directives For more information, please contact: [phone] Documents on File Type Date Recorded Patient Technology Methodology Consultant Expl anation ADVANCE DIRECTIVE 05/09/2017 12:00 AM Care Teams Alarm Technician Relationship Specialty Start Date End Date Cornelius Snider MD [address] [place] [address] PCP - General Internal Medicine 05/09/22 Barbara Ho MD [address] [facility] [address] [place] [address] Surgeon Ophthalmology 07/31/17 [place] [address] [address] [facility] [address] [place] [address] Consulting Physician Endocrinology 11/16/18
--- OUTSIDE RECORDS SUMMARY | 2024-04-03 13:25 | XMS_ITS | Continuity of Care Document ---
Author Organization [facility] Address [address] [facility] [address] [place] [address] Phone Care Team Providers Care Wellness Manager Name Role Phone Mayra THOMAS, MATILDET, Suresh [...] Re-Ed Doc neg elder mal no plan PT Evaluation Moderate Complexity Therapeutic Activities Neuromuscular Re-Ed Advance Directives Directive Yes / No Effective Date File Name No Information Encounters Encounter Description Practice Location Reason(s) For Visit Diagnoses Date Provider Providers Copied on Encounter [facility], [address], [place], [place], [id number], [place] tel:[phone] [place] No Information 2 Klahn Suresh. . [facility], [address], [place], [place], [id number], [place] tel:[phone] [place] No Information Nov-1 - 2 Klahn Suresh. . Referring Provider: Tyron Hawkins [address], [place], [address]. tel:[phone] [facility] [address], [place], [place], [address], [place] tel:[phone] [place] No Information Nov-0 2 Klahn Suresh. . Referring Provider: Tyron Hawkins [facility] [address], [place], [address]. tel:[phone] [facility] [address] [place], [place] [address], [place], [place], [address], [place] tel:[phone] [place] No Information Nov-0 2 Klahn Suresh. . Referring Provider: Tyron Hawkins [facility] [address], [place], [address]. tel:[phone] [place] [address] [facility] [address], [place], [place], [address], [place] tel:[phone] [place] No Information Nov-0 2 Klahn Suresh. . Referring Provider: Johnathon Hawkins [facility] [address], [place], [address]. tel:[phone] [facility] [address], [place], [place], [address], [place] tel:[phone] [place] No Information 2 Klahn Suresh. . Referring Provider: Tyron Hawkins [address], [place], [address]. tel:[phone] [facility], [place], [place], [address], [place] tel:[phone] [place] No Information 2 Mayra Prince. . Referring Provider: Femi Blas [facility] [address] [place], [place], [facility]. tel:[phone] [place] [address] [address], [place], [place], [id number], tel:[phone] [place] No Information 2 Mayra Prince. . Referring Provider: Femi Blas [facility] [address], [place], [place], [facility]. tel:[phone] [place] [address] [address], [place], [place], [id number], tel:[phone] [place] No Information 2 Mayra Prince. . Referring Provider: Femi Blas [address] [place] [address] [address] , [place], [place], [facility]. tel:[phone] [place] [address] [address], [place], [place], [id number], tel:[phone] [place] No Information 2 Mayra Prince. . Referring Provider: Femi Blas [address] [place] [address] [address] , [place], [place], [facility]. tel:[phone], [place], [place], [id number], tel:[phone] [place] No Information 2 Mayra Prince. . Referring Provider: Femi Blas [facility] [address], [place], [place], [facility]. tel:[phone] Family History Family Member Type Diagnosis Age At Onset No Information Payers Payer name Insurance type Covered alliance party ID Authorvanessaa tibilly(s) Medicare [place] [id number] For Life Medicare Se condary Only [place] [id number] Social History Type Description Quantity Date Captured [...]
--- OUTSIDE RECORDS SUMMARY | 2024-04-03 13:25 | XMS_ITS | Continuity of Care Document ---
Author Organization [facility] Address [address] [facility] [address] [place] [address] Phone Care Team Providers Care Human Resources File Clerk Name Role Phone Jackson OD, Curtis Unavailable [...] Diagnoses Date Provider Providers Copied on Encounter [facility], [address] [place] [address] [address], [place], [place], [id number], [place] tel:[phone] SEC [facility] No Information 0 Jackson OD Curtis. [address] [facility] , [address], [place], [address], [place]. tel:[phone] [facility], [address] [place] [address] [address], [place], [place], [id number], [place] tel:[phone] SEC [facility] No Information 0 [employer]. [address] [facility], [address], [place], [place], [id number], [place]. tel:[phone] Referring Provider: Curtis Marshall, [address] [place], [place] [address], [place], [place], [facility]. tel:[phone] ramos Provider: Macey Blanchard, [address] [place], [place], [facility]. tel:[phone] [facility], [address] [place] [address] [address], [place], [place], [id number], tel:[phone] SEC [facility] No Information 200 [address] Krishnasamy Tim. [address] [place] [address], [place], [facility], [place]. tel:[phone] Referring Provider: Tim stark, [address] [place] [address], [place], [facility]. tel:[phone] [facility], [address], [place], [place], [id number], tel:[phone] SEC [facility] No Information 6200 8 Krishnasamy Tim. [address] [place] [address], [facility], . tel:[phone] Family History Family Member Type Diagnosis Age At Onset No Information Payers Payer name Insurance type Covered alliance party ID Authoriza tion(s) Medicare [facility] [id number] For Life Mdcr Supp CI [id number] Social History Type Description Quantity Date Captured [...]
[2024-04-03 13:38] VITALS: BP 149/82; PULSE 64; RESP 16; O2SAT 95
--- NOTE | 2024-04-03 14:03 | ED_ITS ---
HPI - General Adult General Chief complaint: Neck Pain/Injury Stated complaint: head and neck pain x 3 days Time Seen by Provider: 04/03/24 13:17 History of Present Illness HPI narrative: 83-year-old female presenting to the emergency department for evaluation for worsening dementia, inability to care for self and posterior head neck pain. Family states the patient is currently being followed by neurology for Alzheimer's dementia and family states the dementia has been worsening. Patient has been complaining of posterior neck pain for the last few days and patient has not been able to care for herself secondary to the pain. Patient is currently in an assisted living but is requiring more cyst than can be provided. Family is hoping to have the patient admitted for PT OT, A/B admission to rehab and family is attempting to set up a higher level of care for her. Related Data Home Medications ?Medication ?Instructions ?Recorded ?Confirmed ?Last Taken ?Type epinephrine 0.3 mg/0.3 mL 0.3 mg IM ONCE PRN Allergic 10/19/20 08/11/23 01/11/21 History injection, auto-injector Reaction vit C 226 mg-vit E 90 mg-copper 1 cap PO DAILY 10/19/20 08/11/23 01/11/21 History 0.8 mg-zinc oxide-lutein 5 mg capsule (PreserVision Lutein) aspirin 81 mg tablet,delayed 81 mg PO DAILY 04/16/21 08/11/23 Unknown History release (Jose Low Dose Aspirin) azelastine 205.5 mcg (0.15 %) 2 spray intranasal QAM 11/01/21 08/11/23 Unknown History nasal spray (Astepro Allergy) calcium carbonate (Calcium 600) 600 mg PO BID 04/02/22 08/11/23 Unknown History donepezil 5 mg tablet 5 mg PO QHS 04/23/22 08/11/23 Unknown History losartan 50 mg tablet 50 mg PO QAM 06/12/22 08/11/23 Unknown History acetaminophen 650 mg 650 mg PO QAM 08/28/22 08/11/23 Unknown History tablet,extended release calcitriol 0.25 mcg capsule 0.25 mcg PO QAM 08/28/22 08/11/23 Unknown History ergocalciferol (vitamin D2) 1,250 1,250 mcg PO WEEKLY 08/28/22 08/11/23 Unknown History mcg (50,000 unit) capsule escitalopram oxalate 20 mg tablet 20 mg PO HS 08/28/22 08/11/23 Unknown History fluticasone propionate 230 2 puff inhalation QAM Dyspnea 08/28/22 08/11/23 Unknown History mcg-salmeterol 21 mcg/actuation HFA inhaler (Advair HFA) levothyroxine 100 mcg tablet 100 mcg PO QAM 08/28/22 08/11/23 Unknown History rosuvastatin 10 mg tablet 10 mg PO QAM 08/28/22 08/11/23 Unknown History terbinafine HCl 250 mg tablet 250 mg PO DAILY 08/28/22 08/11/23 Unknown History Allergies Allergy/AdvReac Type Severity Reaction Status Date / Time guanfacine (From Tenex) Allergy Intermediate Unknown-PT Verified 08/25/23 19:18 UNABLE TO RECALL propoxyphene Allergy Mild RASH Verified 08/25/23 19:18 adhesive tape Allergy Unknown REDNESS, Verified 08/25/23 19:18 RASH latex Allergy Unknown Rash Verified 08/25/23 19:18 ondansetron Allergy Unknown Unknown-PT Verified 08/25/23 19:18 UNABLE TO RECALL Penicillins Allergy Unknown Rash Verified 08/25/23 19:18 Sulfa (Sulfonamide Allergy Unknown Unknown-PT Verified 08/25/23 19:18 Antibiotics) UNALBE TO RECALL verapamil Allergy Unknown Unknown-PT Verified 08/25/23 19:18 UNALBE TO RECALL citalopram (From Celexa) AdvReac Intermediate Unknown-PT Verified 08/25/23 19:18 UNALBE TO RECALL gabapentin AdvReac Intermediate DAVIS, NAUSEA Verified 08/25/23 19:18 diclofenac AdvReac Unknown Gastrointestinal Verified 08/11/23 08:30 Upset tramadol AdvReac Unknown Gastrointestinal Verified 08/11/23 08:30 Upset Review of Systems 2 Review of Systems: All systems reviewed & are unremarkable except as noted in HPI and below PMFSH Past Medical History Medical History Abscess of groin, left Anxiety Asthma Asthmatic pulmonary eosinophilia Benign essential hypertension BMI 28.0-28.9,adult BMI 29.0-29.9,adult BMI 30.0-30.9,adult BMI 31.0-31.9,adult Candidiasis of other urogenital sites Carotid stenosis Cellulitis Cervicalgia CHF (congestive heart failure) EF 65-70%, grade 1 diastolic dysfunction CKD (chronic kidney disease) Cognitive dysfunction Cough CVA (cerebral vascular accident) Dementia Diastolic dysfunction 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 Eosinophilic asthma Fatigue Follow up Hearing loss Hunner's ulcer Hx of colonic polyps Hyperlipidemia Hypersomnolence Hypothyroidism (acquired) Insomnia Insulin resistance LBBB (left bundle branch block) Major depression, recurrent, chronic Melanoma of eye Memory loss Microscopic hematuria Muscle spasm 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 Hx of hysterectomy Family History Family History Father Family history of Alzheimer's disease, Onset Age: 76 Diabetes mellitus, Onset Age: 76 Sibling Family history of primary malignant neoplasm of liver, Onset Age: 54 Family history of malignant neoplasm of breast in first degree relative Family history of diabetes mellitus in first degree relative Acute myocardial infarction Diabetes mellitus, Onset Age: 72 Patient's sister is in good health Patient's brother is in good health Family history of malignant neoplasm of stomach Family history of malignant neoplasm Family history of malignant neoplasm of breast Mother Family history of emphysema Family history of rheumatoid arthritis, Onset Age: 69 Grandparent Diabetes mellitus, Onset Age: 80 Other Hypertension Social History Social History Smoking packs per day: 0.5 Smoking cigarettes per day: 10.0 Years smoked: 10 Smoking pack-years: 5.00 Smoking status: Former smoker Tobacco type: cigarettes Second hand tobacco smoke exposure: No Smoking end date: 08/10/74 Additional smoking assessment comments: PT STATES QUITING Alcohol intake: current Alcohol use details: Rare , social ETOH Substance use: never Lack of Transportation: No Lack of Food: Never True Current Housing: I Have Housing Concerned About Future Housing: No Difficulty Paying Gas/Electric Bills: No Difficulty Paying for Meds: No Currently Unemployed: No Education: High School Diploma/GED Difficulty w/ Childcare or Family Care: No Living arrangements: assisted living Gender identity (if verbalized by the patient): Female Spiritual care concerns: No Exam 2 Narrative: APPEARANCE: Well appearing, no pain, no distress, well-nourished. HEAD: normocephalic, atraumatic. Tender along the posterior occiput with no edema, erythema or ecchymosis EYES: PERRLA/EOMI, conjunctivae clear. NOSE: Normal no drainage EARS:TMS clear with good light reflex. THROAT: Pharynx clear, no exudate. NECK: Supple. No adenopathy, no masses. RESPIRATORY: Airway patent, respirations nonlabored. Clear to auscultation bilaterally, no rales, rhonchi, wheezing. CARDIOVASCULAR: Regular rate and rhythm without murmurs rubs or gallops. ABDOMINAL: Soft, nontender, nondistended, normal bowel sounds MUSCULOSKELETAL: Moves all extremities. Strength/ROM intact, No edema, No calf tenderness. NEURO: Alert. Cranial nerves II through XII intact. Good gait. Good coordination SKIN: Warm, dry. Normal Color Course Vital Signs Vital signs: Vital Signs Temperature 98 F 04/03/24 11:02 Pulse Rate 63 04/03/24 11:02 Respiratory Rate 16 04/03/24 11:02 Blood Pressure 124/64 04/03/24 11:02 Pulse Oximetry 95 04/03/24 11:02 Temperature 96.8 F L 04/03/24 17:46 Pulse Rate 66 04/03/24 17:46 Respiratory Rate 24 H 04/03/24 17:46 Blood Pressure 144/75 H 04/03/24 17:46 Pulse Oximetry 99 04/03/24 17:46 Oxygen Delivery Room Air 04/03/24 13:38 Medical Decision Making MDM Narrative Medical decision making narrative: [age] old female presented emergency department for evaluation for multiple issues. Patient is complaining head and neck pain and family states that the patient has Alzheimer's dementia is worsening to the point where she could no longer care for herself. Patient had a minor white blood cell count of 10.2 but is afebrile, hemoglobin is stable at 14.1. No significant abnormalities on the patient's CMP UA was negative for infection. Patient was negative for influenza RSV and for COVID. Patient had negative CT head and CT cervical spine. Care coordination did discuss the facilities capabilities and they are able to increase her care, they will have follow-up with primary care physician to increase her PT OT and the director recreation will be involved in helping get the patient transferred to memory care unit as needed. Patient will be provided Tylenol and Flexeril for pain control. Patient and family are updated on the results of care coordination is phone calls and the results of the medical workup. All questions concerns were addressed and patient was in no distress and was well-appearing at time of discharge. Differential Diagnosis Differential Diagnosis: COVID, RSV, influenza cervical spine injury, intracranial injury, muscular spasm, UTI Vital Signs Vital Signs: Vital Signs Temperature 98 F 04/03/24 11:02 Pulse Rate 63 04/03/24 11:02 Respiratory Rate 16 04/03/24 11:02 Blood Pressure 124/64 04/03/24 11:02 Pulse Oximetry 95 04/03/24 11:02 Temperature 96.8 F L 04/03/24 17:46 Pulse Rate 66 04/03/24 17:46 Respiratory Rate 24 H 04/03/24 17:46 Blood Pressure 144/75 H 04/03/24 17:46 Pulse Oximetry 99 04/03/24 17:46 Oxygen Delivery Room Air 04/03/24 13:38 Lab Data Lab results reviewed: Yes I reviewed the patient's lab results. 04/03/24 14:23 04/03/24 15:08 Labs: Lab Results 04/03/24 04/03/24 Range/Units 14:23 15:08 WBC 10.2 H (4.5-10.0) K/mm3 RBC 4.54 (4.2-5.4) M/mm3 Hgb 14.1 (12.0-15.0) g/dL Hct 43.3 (37.0-47.0) % MCV 95.4 (80-100) fl MCH 31.1 (26-34) pg MCHC 32.6 (32-36) g/dl RDW 14.5 (11.5-14.5) % Plt Count 179 D (150-375) k/mm3 MPV 12.3 H (7.4-10.4) fl Immature Gran % (Auto) 0.3 (0-0.5) % Neut % (Auto) 70.1 (45.5-73.1) % Lymph % (Auto) 15.3 L (18.3-44.2) % Barton % (Auto) 12.3 H (2.6-8.5) % Eos % (Auto) 1.3 (0-4.4) % Baso % (Auto) 0.7 (0.2-1.2) % Lymph # (Auto) 1.56 (0.9-3.2) K/mm3 Barton # (Auto) 1.3 H (0.1-0.6) K/mm3 Eos # (Auto) 0.1 (0-0.3) K/mm3 Baso # (Auto) 0.1 (0.0-0.1) K/mm3 Abs Immat Gran (auto) 0.03 (0.00-0.031) K/mm3 Absolute Neuts (auto) 7.1 H (1.3-6.7) K/mm3 Absolute Nucleated RBC 0.000 (0.0-0.012) K/mm3 Nucleated RBC % 0.0 (0.0-0.2) % Sodium 139 (137-145) mmol/L Potassium 3.9 (3.4-5.0) mmol/L Chloride 100 (98-107) mmol/L Carbon Dioxide 28 (22-30) mmol/L Anion Gap 11 (4-12) mmol/L BUN 32 H (7-17) mg/dL Creatinine 0.96 (0.7-1.0) mg/dL Estim Creat Clear Calc 43 ml/min Estimated GFR 55 L (59 - ) Glucose 107 (65-110) mg/dL Calcium 10.1 (8.4-10.2) mg/dL Total Bilirubin 1.0 (0.2-1.3) mg/dL AST 29 (14-36) U/L ALT 22 (6-35) U/L Alkaline Phosphatase 77 (38-126) U/L Total Protein 8.0 (6.3-8.2) g/dL Albumin 4.1 (3.5-5.1) g/dL Urine Color Yellow (Yellow) Urine Appearance Clear (Clear) Urine pH 5.0 (5.0-9.0) Ur Specific Justin 1.016 (1.001-1.035) Urine Protein Negative (Negative) mg/dL Urine Glucose (UA) Negative (Negative) mg/dL Urine Ketones Negative (Negative) mg/dL Ur Blood (Man) Negative (Negative) Urine Nitrate Negative (Negative) Urine Bilirubin Negative (Negative) Urine Urobilinogen 0.2 (<2.0) mg/dL Add Ur Microanalysis Reviewed Leukocyte Esterase Rfl 1+ H (Negative) TAWANNA/UL Urine RBC 0-2 (0-2) /hpf Urine WBC 0-5 (0-3) /hpf Ur Squamous Epith Cells Occasional (Few) /hpf Urine Bacteria None seen /hpf Urine Casts 11-20 Influenza A (RT-PCR) Negative (Negative) Influenza B (RT-PCR) Negative (Negative) RSV (RT-PCR) Negative (Negative) SARS-CoV-2 RNA (RT-PCR) Negative (Negative) Imaging Data Radiologist's impression: Impressions Head CT 04/03/24 14:50 IMPRESSION: 1. Normal aging brain. Cervical Spine CT 04/03/24 14:53 IMPRESSION: 1. Moderate cervical spondylosis. 2. Anterior fusion procedure at C5-C6. Discharge Plan Discharge Clinical Impression: Acute neck pain Patient Disposition: [place]/Asst Living Condition: Stable Instructions: Antibiotic Form, Cervical Strain (ED) Additional Instructions: Tylenol and Flexeril for muscle spasm. Your facility states they are able to increase your level of care. Your primary care physician can order PT OT for your facility. Contact Lulu, the director recreation, to help facilitate transfer to a memory care unit as needed. Patient Language: Nauruan Prescriptions: New cyclobenzaprine 10 mg tablet 10 mg PO BID PRN (Reason: muscle spasm) Qty: 14 0RF No Action epinephrine 0.3 mg/0.3 mL auto-injector 0.3 mg IM ONCE PRN (Reason: Allergic Reaction) Rx Instructions: as a single dose PreserVision Lutein 226 mg-200 unit -5 mg-0.8 mg capsule 1 cap PO DAILY donepezil 5 mg tablet 5 mg PO QHS losartan 50 mg tablet 50 mg PO QAM aspirin [Jose Low Dose Aspirin] 81 mg tablet,delayed release (DR/EC) 81 mg PO DAILY albuterol sulfate 90 mcg/actuation HFA aerosol inhaler 1 - 2 puff inhalation Q4-6H PRN (Reason: shortness of breath or wheezing) Qty: 8.5 2RF Trelegy Ellipta 100-62.5-25 mcg blister with device 1 inh inhalation DAILY Qty: 60 0RF escitalopram oxalate 20 mg tablet 20 mg PO HS rosuvastatin 10 mg tablet 10 mg PO QAM levothyroxine 100 mcg tablet 100 mcg PO QAM fluticasone propion-salmeterol [Advair HFA] 230-21 mcg/actuation HFA aerosol inhaler 2 puff inhalation QAM Rx Instructions: Rinse mouth and spit after each use acetaminophen 650 mg Tablet Extended Release 650 mg PO QAM terbinafine HCl 250 mg tablet 250 mg PO DAILY ergocalciferol (vitamin D2) 1,250 mcg (50,000 unit) capsule 1,250 mcg PO WEEKLY Rx Instructions: MONDAYS calcitriol 0.25 mcg capsule 0.25 mcg PO QAM phenazopyridine [Pyridium] 200 mg tablet 200 mg PO TID PRN (Reason: pain) Qty: 15 0RF cephalexin 500 mg capsule 500 mg PO Q12H 7 Days Qty: 14 0RF felodipine 10 mg tablet extended release 24 hr 10 mg PO DAILY Qty: 30 0RF azelastine [Astepro Allergy] 205.5 mcg (0.15 %) spray,non-aerosol 2 spray intranasal QAM Rx Instructions: administer into each nostril loperamide 2 mg tablet 2 mg PO DAILY PRN (Reason: Diarrhea) Qty: 90 1RF furosemide 40 mg tablet 40 mg PO QAM Qty: 90 1RF diclofenac sodium [Voltaren Arthritis Pain] 1 % gel 3 g topical QID Qty: 300 0RF Rx Instructions: apply to single elbow, wrist or hand; for hand includes palm/fingers/back of hand calcium carbonate [Calcium 600] 600 mg calcium (1,500 mg) tablet 600 mg PO BID montelukast 10 mg tablet 10 mg PO QHS 90 Days Qty: 90 3RF carvedilol 12.5 mg tablet 12.5 mg PO Q12H Qty: 180 1RF Rx Instructions: must administer with a meal/food. albuterol sulfate 2.5 mg /3 mL (0.083 %) solution for nebulization 2.5 mg inhalation Q6H PRN (Reason: shortness of breath or wheezing) Qty: 1080 1RF Follow-up/Referrals: Agatha,Cornelius Massey MD [Primary Care Provider] -
[2024-04-03] MEDS: CYCLOBENZAPRINE HCL 10 MG TABLET PO (14:04)
[2024-04-03] MEDS: HYDROcodone/acetaminophen (*CRX) 5-325 MG TABLET 1 TAB PO (14:05)
[2024-04-03 14:35] LABS: Basophils Absolute Auto 0.1 K/mm3 (0.0-0.1); Basophils Percent Auto 0.7 % (0.2-1.2); Eosinophils Absolute Auto 0.1 K/mm3 (0-0.3); Eosinophils Percent Auto 1.3 % (0-4.4); Hematocrit 43.3 % (37.0-47.0); Hemoglobin 14.1 g/dL (12.0-15.0); Immature Granulocyte Absolute 0.03 K/mm3 (0.00-0.031); Immature Granulocyte Percent A 0.3 % (0-0.5); Lymphocytes Absolute Auto 1.56 K/mm3 (0.9-3.2); Lymphocytes Percent Auto 15.3 % (18.3-44.2); Mean Corpuscular HGB Conc 32.6 g/dl (32-36); Mean Corpuscular Hemoglobin 31.1 pg (26-34); Mean Corpuscular Volume 95.4 fl (80-100); Mean Platelet Volume 12.3 fl (7.4-10.4); Monocytes Absolute Auto 1.3 K/mm3 (0.1-0.6); Monocytes Percent Auto 12.3 % (2.6-8.5); Neutrophils Absolute Auto 7.1 K/mm3 (1.3-6.7); Neutrophils Percent Auto 70.1 % (45.5-73.1); Platelet Count Result 179 k/mm3 (150-375); Red Blood Count 4.54 M/mm3 (4.2-5.4); Red Cell Distribution Width 14.5 % (11.5-14.5); White Blood Count 10.2 K/mm3 (4.5-10.0)
[2024-04-03 14:48] LABS: Add Urine Microscopic? YES; Appearance Urine Clear (Clear); Bacteria Urine None Seen /hpf; Bilirubin Urine Negative (Negative); Blood Urine Negative (Negative); Color Urine Yellow (Yellow); Glucose Urine UA Negative (Negative); Ketones Urine Negative (Negative); Leukocyte Esterase Ur 1+ LEU/UL (Negative); Need Manual Microscopic Reviewed; Nitrate Urine Negative (Negative); Protein Urine Negative (Negative); RBC Urine 0-2 /hpf (0-2); Specific Grav Ur 1.016 (1.001-1.035); Squamous Epithelial Cell Urine Occasional /hpf (Few); Urobilinogen Urine 0.2 mg/dL (<2.0); WBC Urine 0-5 /hpf (0-3)
[2024-04-03 15:18] LABS: Influenza A QL RT-PCR Negative (Negative); Influenza B QL RT-PCR Negative (Negative); RSV RNA, RT-PCR Negative (Negative); SARS-CoV-2 RNA PCR Negative (Negative)
--- NOTE | 2024-04-03 15:32 | PCCCNOTE ---
1532-Spoke with the family whom stated she is a resident of [facility] in Assisted living. Stated they feel due to her recent c/o of neck pain it has caused her decreased in level of ability to care for herself at the facility and stated she has had nothing by mouth for two days. Pt's son stated they can take her back to facility after discharge today however concerned her status may only worsen. Noted they do have a higher level of care (SNF) and may discuss this need with facility hopefully just until she recovers from this concern and able to return to assisted living. Pt has been participating with PT at facility w/o improvement and hoping to get her into Acute Rehab services. Discussed the pt would need to meet criteria for IP placement and have good rehab potential for this type of referral. Updated the ED provider on the status of the discussion with the family. Also LVM with [facility] to assure the pt would have a higher level of care today if returned to facility.-dottie.
--- NOTE | 2024-04-03 15:42 | PCCCNOTE ---
Called Suki Lowe at [phone] and MAKI asking for a return call.-dottie.
[2024-04-03 16:12] LABS: Alanine Aminotransferase 22 U/L (6-35); Albumin Level 4.1 g/dL (3.5-5.1); Alkaline Phosphatase 77 U/L (38-126); Anion Gap 11 mmol/L (4-12); Aspartate Amino Transferase 29 U/L (14-36); Blood Urea Nitrogen 32 mg/dL (7-17); Calcium 10.1 mg/dL (8.4-10.2); Carbon Dioxide 28 mmol/L (22-30); Chloride 100 mmol/L (98-107); Estimated CRCL calculation 43 ml/min; Estimated Glomerular Filt Rate 55; Glucose 107 mg/dL (65-110); Potassium 3.9 mmol/L (3.4-5.0); Sodium 139 mmol/L (137-145)
--- NOTE | 2024-04-03 16:43 | PC.NURSE ---
Pt. c/o 10/[address] Esparza notified. See APR.
--- NOTE | 2024-04-03 16:47 | PCCCNOTE ---
Addendum entered by Laney Cuba RN 04/03/24 16:52: 1651Message also left with Maxx the floor nurse with [facility] requesting a return call [email or web address].lavon. Original Note: 1643-LVM with Suki with [facility] requesting a return call regarding the pt's status. Still no return call from Facility Nurse Maxx from two outgoing calls. ED PCP is aware.-dottie.
[2024-04-03 16:54] VITALS: BP 156/85; PULSE 65; RESP 16; O2SAT 95
[2024-04-03] MEDS: MORPHINE SULFATE INJ (*CRX) 10 MG/ML AMP 4 MG IM (16:54)
--- NOTE | 2024-04-03 17:25 | PCCCNOTE ---
170-Maxx from [facility] called, stated the pt is welcome to come back to facility if no reason to admit noted. Stated she has not maxed out her level of care w/in their spectrum of assisted living. Stated the pt has had a decline as far as her dementia and if the family was interested could discuss with their Directory of Nursing, Lulu moving to their Memory care Unit for a more hands on approach. Stated he as the facility nurse didn't even know the family was calling 911 today. Stated he knew the pt had been c/o neck pain and thought the pt was being taken via private car. Stated the family took this whole action upon themselves today to visit the ED. Stated they are happy to have a meeting and further consult the pt's PCP for further direction when the pt returns to facility. ED provider and nurse made aware of this conversation.-dottie.
[2024-04-03 17:46] VITALS: BP 144/75; PULSE 66; RESP 24; TEMP 36; O2SAT 99
== END 2024-04-03 17:47 ==
PROVIDERS: Emergency Provider Emergency Medicine; PCP Internal Medicine
DX: M54.2 Cervicalgia (principal); G30.9 Alzheimer's disease, unspecified; F02.80 Dementia in other diseases classified elsewhere, unspecified severity, without behavioral disturbance, psychotic disturbance, mood disturbance, and anxiety; Z20.822 Contact with and (suspected) exposure to COVID-19; I13.0 Hypertensive heart and chronic kidney disease with heart failure and stage 1 through stage 4 chronic kidney disease, or unspecified chronic kidney disease; E11.22 Type 2 diabetes mellitus with diabetic chronic kidney disease; I50.9 Heart failure, unspecified; J45.909 Unspecified asthma, uncomplicated; N18.9 Chronic kidney disease, unspecified; E78.5 Hyperlipidemia, unspecified; E03.9 Hypothyroidism, unspecified; M47.812 Spondylosis without myelopathy or radiculopathy, cervical region; G47.33 Obstructive sleep apnea (adult) (pediatric); Z98.1 Arthrodesis status; Z96.652 Presence of left artificial knee joint; Z86.16 Personal history of COVID-19; Z86.0100 Personal history of colon polyps, unspecified; Z86.73 Personal history of transient ischemic attack (TIA), and cerebral infarction without residual deficits; Z87.891 Personal history of nicotine dependence; Z90.49 Acquired absence of other specified parts of digestive tract; Z90.710 Acquired absence of both cervix and uterus; Z79.82 Long term (current) use of aspirin; Z79.899 Other long term (current) drug therapy
CPT/HCPCS: 36415; 70450; 72125; 80053; 81001; 85025; 87086; 87637; 96372; 99284; A9270; J2270